=== PATIENT | female | born 1960 | race Caucasian/White ===

== ENCOUNTER 2020-11-15 07:26 | Outpatient (REF) | payer BC, SELFPAY ==
[2020-11-15 08:18] LABS: Glucose Fasting 156 mg/dL (60-99)
[2020-11-15 08:21] LABS: Estimated Average Glucose 171 mg/dL; Hemoglobin A1c % 7.6 %
[2020-11-15 08:48] LABS: Vitamin D 25-OH Total 31.1 ng/mL (>30)
== END 2020-11-15 07:27 | disposition home or self-care (01) ==
LOC: HO.LAB 07:26
PROVIDERS: PCP Internal Medicine; Visit Provider Internal Medicine
DX: E11.9 Type 2 diabetes mellitus without complications (principal); E55.9 Vitamin D deficiency, unspecified
CPT/HCPCS: 36415; 82306; 82947; 83036

== ENCOUNTER 2021-05-22 10:13 | Outpatient (REF) | payer BC, SELFPAY ==
[2021-05-22 10:17] LABS: MANUAL DIFF FLAG NO
[2021-05-22 10:50] LABS: Basophils Absolute Auto 0.1 X10*3/uL (0.0-0.2); Basophils Percent Auto 0.5 % (0-2); Eosinophils Absolute Auto 0.2 X10*3/uL (0.0-0.4); Eosinophils Percent Auto 1.7 % (0-4); Hematocrit 39.4 % (37-47); Hemoglobin 13.3 g/dl (12.0-16.0); Imm Gran Abs Auto 0.04 X10*3/uL (0.00-0.03); Imm Gran Pct Auto 0.4 % (0.0-0.4); Lymphocytes Absolute Auto 4.1 X10*3/uL (1.2-4.9); Lymphocytes Percent Auto 41.9 % (20-40); Mean Corpuscular HGB Conc 33.8 g/dl (31.0-35.0); Mean Corpuscular Hemoglobin 30.2 pg (27.0-33.0); Mean Corpuscular Volume 89.5 fL (80-98); Mean Platelet Volume 10.6 fL (9.4-12.3); Monocytes Absolute Auto 0.6 X10*3/uL (0.1-1.2); Monocytes Percent Auto 5.8 % (2-11); Neutrophils Absolute Auto 4.9 X10*3/uL (2.0-8.3); Neutrophils Percent Auto 49.7 % (45-73); Platelet Count 273 X10*3/uL (160-400); White Blood Count 9.8 X10*3/uL (4.8-10.8)
[2021-05-22 11:07] LABS: Appearance Urine HAZY; Color Urine YELLOW; Glucose Urine UA NEG (NEG); Leukocyte Esterase Urine 2+ (NEG); Nitrite Urine NEG (NEG); Specific Gravity - Urine 1.025 (1.005-1.025); Urine Blood 2+ (NEG); Urine Ketones NEG (NEG); Urine Protein NEG (NEG-TRACE)
[2021-05-22 11:20] LABS: Bacteria Urine 3+ /LPF; Squamous Epithelial Cell Urine 2+ /LPF; WBC Urine 30-49 /HPF (0-4)
[2021-05-22 11:21] LABS: Alanine Aminotransferase 26 U/L (0-31); Albumin Level 4.3 g/dL (3.5-5.0); Alkaline Phosphatase 89 U/L (39-117); Anion Gap 14 (12-20); Aspartate Amino Transferase 25 U/L (5-31); Blood Urea Nitrogen 12 mg/dL (9-16); Calcium 9.3 mg/dL (8.4-10.2); Carbon Dioxide 25 mmol/L (22-29); Chloride 105 mmol/L (96-108); Cholesterol 179 mg/dL; Estimated Glomerular Filt Rate > 60; Glucose Fasting 175 mg/dL (60-99); HDL Cholesterol 46 mg/dL; LDL Cholesterol Calculated 102 mg/dl; Potassium 4.1 mmol/L (3.3-5.1); Sodium 140 mmol/L (135-145); Total Protein 7.3 g/dL (6.5-8.0); Triglycerides 156 mg/dL
[2021-05-22 11:44] LABS: Reflex LDLD? No
[2021-05-22 12:50] LABS: Creatinine Urine 145.48 mg/dL; Microalbum/Creatinine Ratio Ur 17.1 ug/mg cr
[2021-05-23 07:32] LABS: Estimated Average Glucose 212 mg/dL
== END 2021-05-22 10:14 | disposition home or self-care (01) ==
LOC: HO.LNP 10:13
PROVIDERS: Visit Provider Internal Medicine
DX: Z00.00 Encounter for general adult medical examination without abnormal findings (principal); E78.00 Pure hypercholesterolemia, unspecified; D12.6 Benign neoplasm of colon, unspecified; E55.9 Vitamin D deficiency, unspecified; E11.9 Type 2 diabetes mellitus without complications; I10 Essential (primary) hypertension
CPT/HCPCS: 80053; 80061; 81001; 81003; 82043; 82306; 83036; 85025

== ENCOUNTER 2021-08-22 07:02 | Outpatient (REF) | payer BC, SELFPAY ==
[2021-08-22 08:10] LABS: Estimated Average Glucose 131 mg/dL; Hemoglobin A1c % 6.2 %
[2021-08-22 08:13] LABS: Glucose Fasting 123 mg/dL (60-99)
== END 2021-08-22 07:03 | disposition home or self-care (01) ==
LOC: HO.LAB 07:02
PROVIDERS: PCP Internal Medicine; Visit Provider Internal Medicine
DX: E11.9 Type 2 diabetes mellitus without complications (principal)
CPT/HCPCS: 36415; 82947; 83036

== ENCOUNTER → 2021-11-04 12:25 | Outpatient (BNVA) | payer OTHER, SELFPAY | PROVIDERS: PCP Internal Medicine; Visit Provider Physician Assistant | DX: M77.11 Lateral epicondylitis, right elbow (principal); M77.12 Lateral epicondylitis, left elbow | CPT/HCPCS: 99203 ==

== ENCOUNTER → 2021-11-10 10:45 | Outpatient (BNVA) | payer OTHER, SELFPAY | PROVIDERS: PCP Internal Medicine; Visit Provider Physician Assistant Medical | DX: M54.6 Pain in thoracic spine (principal); M75.41 Impingement syndrome of right shoulder; M77.10 Lateral epicondylitis, unspecified elbow; M77.00 Medial epicondylitis, unspecified elbow | CPT/HCPCS: 99213 ==

== ENCOUNTER 2021-11-16 10:21 | Outpatient (REF) | payer BC, SELFPAY ==
[2021-11-16 13:01] LABS: Alanine Aminotransferase 20 U/L (0-31); Albumin Level 4.7 g/dL (3.5-5.0); Alkaline Phosphatase 61 U/L (39-117); Aspartate Amino Transferase 14 U/L (5-31); Bilirubin Direct 0.3 mg/dL (0.0-0.5); Bilirubin Total 0.7 mg/dL (0.0-1.0); Cholesterol 171 mg/dL; Glucose Fasting 123 mg/dL (60-99); HDL Cholesterol 52 mg/dL; LDL Cholesterol Calculated 91 mg/dl; Total Protein 8.1 g/dL (6.5-8.0); Triglycerides 142 mg/dL
[2021-11-16 13:45] LABS: Estimated Average Glucose 120 mg/dL; Hemoglobin A1c % 5.8 %
== END 2021-11-16 10:22 | disposition home or self-care (01) ==
LOC: HO.LAB 10:21
PROVIDERS: PCP Internal Medicine; Visit Provider Internal Medicine
DX: E11.9 Type 2 diabetes mellitus without complications (principal); E78.00 Pure hypercholesterolemia, unspecified; I10 Essential (primary) hypertension
CPT/HCPCS: 36415; 80061; 80076; 82947; 83036

== ENCOUNTER → 2021-11-18 12:54 | Outpatient (BNVA) | payer OTHER, SELFPAY | PROVIDERS: PCP Internal Medicine; Visit Provider Physician Assistant Medical | DX: H53.19 Other subjective visual disturbances (principal); S16.1XXD Strain of muscle, fascia and tendon at neck level, subsequent encounter; X50.3XXD Overexertion from repetitive movements, subsequent encounter | CPT/HCPCS: 99213 ==

== ENCOUNTER → 2021-12-02 12:53 | Outpatient (BNVA) | payer OTHER, SELFPAY | PROVIDERS: PCP Internal Medicine; Visit Provider Physician Assistant Medical | DX: M54.89 Other dorsalgia (principal); M77.01 Medial epicondylitis, right elbow; M65.30 Trigger finger, unspecified finger | CPT/HCPCS: 99213 ==

== ENCOUNTER → 2021-12-04 09:39 | Outpatient (BNVA) | payer OTHER, SELFPAY | PROVIDERS: Visit Provider Physician Assistant | DX: M65.331 Trigger finger, right middle finger (principal); M65.341 Trigger finger, right ring finger; G56.21 Lesion of ulnar nerve, right upper limb; G56.01 Carpal tunnel syndrome, right upper limb | CPT/HCPCS: 99202 ==

== ENCOUNTER 2021-12-16 08:30 | Outpatient (RCR) | payer OTHER, BC, SELFPAY ==
--- NOTE | 2021-11-16 15:39 | MHC.OT.OEV ---
[address] [phone] F: [phone] Occupational Therapy Evaluation Diagnosis: Bilateral medial epicondylitis /nerve impingment Date of Onset: 10/29/21 Date of Surgery: Attending Provider: Camelia Copeland PA-C Prescribed Treatment: Eval and treat, custom splinting MD Follow Up Appointment: History of Current Condition: Pt reports bilateral hand pain , thobbing 4 hours after shoveling all day Two days later pain aggravated using an auto scrubber Seen in the [facility], was fitted with a pre doreen wrist support, taken out of work and RX for Naproxen 500 mg 2x/dayand cyclobenzaprine 10 mg , 3x/day follow up appt new rx Melnylprednis, solone x 6 day , pt on 2nd to last day Reports improving pain, continued numbness R>L Significant Medical History: HTN, DM 11 Precautions/Contraindications: Pain Patient Goals: Take numbness away, no pain Hand Dominance: Right Observations: QuickDASH Score: 63 Prior Level of Function and Occupation Self Care, Employment, Leisure: Indep in all areas 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 Bilateral finger tips and R thumb/thenar ms. Left hypothenar ms Aggravating Factors: Constant inc with activities Alleviating Factors: Skin and Soft Tissue Assessment Skin and Soft Tissue: Comments: No abnormalities noted Nerve assessment Ulnar Nerve: WFL Median Nerve: WNL Radial Nerve: WNL Comments: Sensory Assessment Temperature: WFL Light Touch: Proprioception: Vibration: Comments: Left hand Normal light touch D1-5 Right D1, 4 and 5 normal. D2 and 3 diminished light touch Edema Assessment Upper Extremity: WNL Lower Extremity: Comments: Dexterity Assessment Dexterity: WFL Comments: Special Tests Comments: Neg Elbow flexion test Neg Tinels at carpal wrist and proxmal forearm ( tender) Neg resisted pronation Pos Phalens on right AROM(PROM) Strength Cervical Cervical Flexion: Cervical Extension: Cervical Lateral Flexion: Cervical Rotation: Comments: Shoulder Flexion: Extension: Abduction: Internal Rotation: External Rotation: Comments: WNL Flexion: Extension: Abduction: Internal Rotation: External Rotation: Comments: Elbow Flexion: Extension: Pronation: Supination: Comments: WNL Flexion: Extension: Pronation: Supination: Comments: Wrist Flexion: R 70 deg L 70 deg Extension: R 60 deg L 65 deg Ulnar Deviation: Radial Deviation: Comments: Flexion: Extension: Ulnar Deviation: Radial Deviation: Comments: WNL Thumb Thumb CMC Flexion: Thumb MCP Flexion: Thumb IP Flexion: Radial Abduction: Palmar Abduction: Gary (Kapandji 0-10): Comments: WNL Digits Index MCP: PIP: DIP: Long MCP: PIP: DIP: Ring MCP: PIP: DIP: Small MCP: PIP: DIP: Comments: WNL Gross Grasp: R 40 lb L 45 lb Lateral Pinch: Two-Point Pinch: Three-Jaw Dank: Comments: Right pain at digits 3,4 and 5 Patient Education Primary Language: Kyr[place]z Brand Executive Required: No Current Knowledge: Minimal, needs reinforcement Teaching Method: Demonstration Handouts Verbal Education Needs Identified on Evaluation: Disease Information Exercise How did patient/family demonstrate learning? Patient demonstrates Patient verbalizes Barriers to Learning: None Readiness for Learning: Accepting Who was educated? Patient Comments: Plan of Care Assessment: Pt is a 61 yo female with complaint of continued right hand pain and middle and ring finger numbness since extensive shoveling 2 wks ago. She reports that her pain and swelling has improved quite a bit and her primary complaint is right hand thumb pain and middle and ring finger pain and constant numbness. Pt has a ho middle and ring trigger fingers previously improved with conservative treatment. Pt will benefit OT to promote healing and regain right UE function with daily actiivties STG Duration: 2 wks Short Term Goals: Demo indep with HEP Dec c/o right hand paresthesia to occassional Tolerate eccentric wrist ther ex Dec c/o pain to <4 LTG Duration: 3 wks Steam Bone Press Tender Goals: Indep HEP and ex progression Tolerated daily activities with modifications as needed Painfree with ADL, driving, and mod heavy work tasks Dec frequency of right hand numbness to occassional Frequency and Duration: The patient will be seen 3x wk x 3 wks Treatment Plan: Therapeutic Exercise Therapeutic Activity Home Exercise Program Splinting Patient Education Edema Control ADL Training Ultrasound Paraffin Fluidotherapy MHP Soft Tissue Mobilization Electronically Signed By: Velia Prieto OT CHT CLT Reviewed/agree with student documentation: N/A Therapist: Please sign and return to therapist, Thank you for your referral.
--- NOTE | 2021-12-16 09:48 | MHC.OT.OR ---
Occupational Therapy Outpt Reeval Start: 11/16/21 10:34 Freq: Status: Active Protocol: Activity Type Activity Date Activity User E-Sign Co-Sign Detail Recorded Client Recorded Date Recorded By Document 12/16/21 09:46 NIRMALA [id number] 12/16/21 09:48 NIRMALA 12/16/21 09:46 Outpatient Occupational Therapy Re- evaluation [Treatment History] -Attending Provider Camelia Copeland PA-C -Diagnosis Bilateral medial epicondylitis / nerve impingment -Evaluation Date 11/16/21 -Treatments to Date 8 [Subjective] -Subjective Its worse today. 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 Need to lift a 10 garbage bag.. washing a lot of counter tops ..sinks Reports con't numbness and pain at digit tips , middle finger 3/10. 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 Complaint of tenderness worsening with use and ther ex . Occassional cupping of elbow with report of tender not pain with simiulated work and resistance ex Inc tolerance with simulated work noted. Pt did not alternate hands and worked at a good pace. 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 [Plan of Care] -Short Term Goals Demo indep with HEP MET Dec c/o right hand paresthesia to occassional Tolerate eccentric wrist ther ex MET Dec c/o pain to <4 MET -Penitentiary Goals Indep HEP and ex progression Tolerated daily activities with modifications as needed MET Painfree with ADL, driving, and mod heavy work tasks Dec frequency of right hand numbness to occassional -Frequency and Duration of Visits 2x wk x 3 wks -Treatment Plan Therapeutic Exercise, Therapeutic Activity,Home Exercise Program,Patient Education,ADL Training -Treatment Plan Comments Simulated work tasks -Electronically signed by: Velia Prieto OT CHT CLT -Reviewed/agreed with student N/A documentation
--- NOTE | 2022-01-20 13:53 | MHC.OT.DC ---
[address] [phone] F: [phone] Occupational Therapy Discharge Note Provider: Camelia Copeland PA-C Diagnosis: Bilateral medial epicondylitis /nerve impingment Date of Surgery: Date of Evaluation: 11/16/21 Date of Discharge: 01/20/22 Treatments to Date: 8 Cancellations to Date: No Shows to Date: Discharge Status: Improved Function Independent with HEP Discharge Summary: Pt not scheduled since MD follow up last month Please see OT re eval for details Electronically Signed By: Velia Prieto OT CHT CLT Reviewed/agree with student documentation: N/A Therapist: Please Sign and return to therapist, thank you for your referral.
--- NOTE | 2022-02-12 13:37 | MHC.OT.DC ---
[address] [phone] F: [phone] Occupational Therapy Discharge Note Provider: Camelia Copeland PA-C Diagnosis: Bilateral medial epicondylitis /nerve impingment Date of Surgery: Date of Evaluation: 11/16/21 Date of Discharge: 01/20/22 Treatments to Date: 8 Cancellations to Date: No Shows to Date: Discharge Status: Improved Function Independent with HEP Discharge Summary: Pt not scheduled since MD follow up last month Please see OT re eval for details Electronically Signed By: Velia Prieto OT CHT CLT Reviewed/agree with student documentation: N/A Therapist: Please Sign and return to therapist, thank you for your referral.
== END 2022-02-12 13:38 | disposition home or self-care (01) ==
LOC: HO.OT 08:30
PROVIDERS: Visit Provider Physician Assistant Medical
DX: M77.02 Medial epicondylitis, left elbow (principal); M77.01 Medial epicondylitis, right elbow
CPT/HCPCS: 97035; 97110; 97165; 97530; 97760

== ENCOUNTER → 2021-12-17 13:20 | Outpatient (BNVA) | payer OTHER, SELFPAY | PROVIDERS: Visit Provider Physician Assistant | DX: M79.631 Pain in right forearm (principal); M65.331 Trigger finger, right middle finger; M54.2 Cervicalgia | CPT/HCPCS: 99214 ==

== ENCOUNTER → 2022-01-05 10:38 | Outpatient (BNVA) | payer OTHER, SELFPAY | PROVIDERS: Visit Provider Orthopaedic Surgery | DX: M65.341 Trigger finger, right ring finger (principal); M65.331 Trigger finger, right middle finger | CPT/HCPCS: 99212 ==

== ENCOUNTER 2022-01-07 11:10 | Day surgery (SDC) | payer OTHER, SELFPAY ==
[2022-01-07 11:42] VITALS: BP 179/78; PULSE 69; RESP 18; TEMP 36.7; O2SAT 99
[2022-01-07 11:49] VITALS: BMI 26.6
[2022-01-07 12:07] LABS: Glucose, Whole Blood 105 mg/dL (60-115)
--- NOTE | 2022-01-07 13:16 | P.OP_ITS ---
Operative Note Operative Note Date of Service: 01/07/22 Narrative: Operative Note Preop diagnosis: 1. right ring finger Trigger finger 2. Right middle finger trigger finger Postop diagnosis: 1. right ring finger Trigger finger 2.right middle finger trigger finger Procedure: 1. right ring finger A1 lino release 2. Right middle finger A1 lino release Surgeon: Georgina Jaimes MD Anesthesia: local block using 1% lidocaine with epinephrine Findings: No locking or catching after A1 lino release EBL: Less than 5 mL Tourniquet time: None Specimens: None Complications: None Disposition: Brought to recovery room in stable condition Plan: Follow-up for 10-14 days for wound check and suture removal Indications: The patient is [age] years old, with a right ring finger and right middle finger trigger fingers that have been unresponsive to nonoperative management. The risks and benefits of operative treatment including but not limited to risk of damage to blood vessels, nerves, tendons, infection, persistent pain, persistent symptoms, recurrence or possible need for additional surgery were discussed with the patient and the patient wishes to proceed with surgery. Procedure: Once consent was obtained a local block was performed in the preop area using a combination of 1% lidocaine with epinephrine. The patient was then brought back to the operating suite and placed on the operative table in supine position. A tourniquet was applied to the proximal aspect of the right upper extremity and the limb was prepped and draped in a standard surgical fashion. Once assured that we had a good block, a 1.5 cm oblique incision was made centered over the A1 lino of the right ring finger . The incision was made through the skin to the subcutaneous tissues using a #15 blade. Careful dissection was made down to the level of the A1 lino using tenotomy scissors, with care being taken to protect the nearby neurovascular structures. A longitudinal incision was made in the A1 lino 1st using a #15 blade, then using tenotomy scissors under direct visualization. The A1 lino was noted to be thickened. Following our A1 lino release, we no longer saw any locking or catching of the digit with flexion and extension. Once assured that we had a good block, a 1.5 cm oblique incision was made centered over the A1 lino of the right middle finger . The incision was made through the skin to the subcutaneous tissues using a #15 blade. Careful dissection was made down to the level of the A1 lino using tenotomy scissors, with care being taken to protect the nearby neurovascular structures. A longit udinal incision was made in the A1 lino 1st using a #15 blade, then using tenotomy scissors under direct visualization. The A1 lino was noted to be thickened. Following our A1 lino release, we no longer saw any locking or catching of the digit with flexion and extension. Once satisfied with our A1 lino release the wound was copiously irrigated with normal saline and hemostasis was obtained with a brief period of local pressure. The skin edges were reapproximated with some 5.0 nylon suture material and a sterile dressing was applied. The patient appears to have tolerated the procedure well and with no complications. All digits were well vascularized at the conclusion of the case.
--- NOTE | 2022-01-07 13:16 | MHC.SHP ---
Pre-Procedural Eval Section A Date of Service: 01/07/22 The patient is an INPATIENT: No Changes since office visit: No Cold of Flu in the past 2 weeks, No New Medical Problems, No Changes in Medication and No Patient answered all questions The History & Physical has been completed within 30 days and I have reviewed it.: Yes Section B Chief Complaint: middle and ring finger trigger release Allergies: Allergies Allergy/AdvReac Type Severity Reaction Status Date / Time No Known Allergies Allergy Verified 01/05/22 11:09 Plan I have reviewed the history and physical and performed a pertinent physical examination on my patient. No changes have occurred unless specified.
[2022-01-07 14:40] VITALS: BP 142/69; PULSE 69; RESP 18; TEMP 36.6; O2SAT 96
== END 2022-01-07 15:00 ==
LOC: HO.SSS 11:12
PROVIDERS: PCP Internal Medicine; Visit Provider Orthopaedic Surgery
PROC: (CPT 26055; principal; 2022-01-07 14:10)
DX: M65.331 Trigger finger, right middle finger (principal); M65.341 Trigger finger, right ring finger; R20.0 Anesthesia of skin; R73.03 Prediabetes; Z79.84 Long term (current) use of oral hypoglycemic drugs; Z79.1 Long term (current) use of non-steroidal anti-inflammatories (NSAID)
CPT/HCPCS: 26055 ×2; 82947; J0171

== ENCOUNTER → 2022-01-20 10:09 | Outpatient (BNVA) | payer OTHER, SELFPAY | PROVIDERS: PCP Internal Medicine; Visit Provider Orthopaedic Surgery | DX: M65.341 Trigger finger, right ring finger (principal); M65.331 Trigger finger, right middle finger | CPT/HCPCS: 99212 ==

== ENCOUNTER → 2022-04-07 13:09 | Outpatient (BNVA) | payer OTHER, SELFPAY | PROVIDERS: PCP Internal Medicine; Visit Provider Orthopaedic Surgery | DX: M65.331 Trigger finger, right middle finger (principal); M65.341 Trigger finger, right ring finger; R20.0 Anesthesia of skin | CPT/HCPCS: 99212 ==

== ENCOUNTER 2022-05-15 07:07 | Outpatient (REF) | payer BC, SELFPAY ==
[2022-05-15 07:25] LABS: MANUAL DIFF FLAG NO
[2022-05-15 08:14] LABS: Basophils Absolute Auto 0.1 X10*3/uL (0.0-0.2); Basophils Percent Auto 0.6 % (0-2); Eosinophils Absolute Auto 0.1 X10*3/uL (0.0-0.4); Eosinophils Percent Auto 1.1 % (0-4); Hematocrit 38.3 % (37.0-47.0); Imm Gran Abs Auto 0.03 X10*3/uL (0.00-0.03); Imm Gran Pct Auto 0.4 % (0.0-0.4); Lymphocytes Percent Auto 35.7 % (20-40); Mean Corpuscular HGB Conc 33.9 g/dl (31.0-35.0); Mean Corpuscular Hemoglobin 30.4 pg (27.0-33.0); Mean Corpuscular Volume 89.5 fL (80.0-98.0); Mean Platelet Volume 10.2 fL (9.4-12.3); Monocytes Absolute Auto 0.5 X10*3/uL (0.1-1.2); Neutrophils Absolute Auto 4.8 x10*3/uL (2.0-8.3); Neutrophils Percent Auto 56.2 % (45-73); Platelet Count 270 X10*3/uL (160-400); Red Blood Count 4.28 X10*6/uL (4.20-5.50); Red Cell Distribution Width 12.6 % (11.0-16.0); White Blood Count 8.5 X10*3/uL (4.8-10.8)
[2022-05-15 08:41] LABS: Alanine Aminotransferase 12 U/L (0-31); Albumin Level 4.1 g/dL (3.5-5.0); Alkaline Phosphatase 63 U/L (39-117); Anion Gap 16 (12-20); Aspartate Amino Transferase 12 U/L (5-31); Bilirubin Total 0.9 mg/dL (0.0-1.0); Blood Urea Nitrogen 15 mg/dL (9-16); Carbon Dioxide 23 mmol/L (22-29); Chloride 106 mmol/L (96-108); Cholesterol 187 mg/dL; Estimated Glomerular Filt Rate > 60; Glucose Fasting 106 mg/dL (60-99); HDL Cholesterol 47 mg/dL; LDL Cholesterol Calculated 110 mg/dl; Sodium 141 mmol/L (135-145); Total Protein 7.1 g/dL (6.5-8.0); Triglycerides 153 mg/dL
[2022-05-15 08:46] LABS: Appearance Urine Clear; Color Urine Yellow; Glucose Urine UA Negative (Negative); Leukocyte Esterase Urine Moderate (2+) (Negative); Nitrite Urine Negative (Negative); Specific Gravity - Urine 1.015 (1.005-1.025); Urine Blood Trace (Negative); Urine Ketones Negative (Negative); Urine Protein Negative (Neg-Trace)
[2022-05-15 08:52] LABS: Bacteria Urine None Seen (None Seen); Hyaline Casts Urine 0-2 /LPF (0-2); RBC Urine 0-2 /HPF (0-2); WBC Urine >50 /HPF (0-5)
[2022-05-15 09:04] LABS: Vitamin D 25-OH Total 33.3 ng/mL (>30)
[2022-05-15 09:18] LABS: Estimated Average Glucose 108 mg/dL; Hemoglobin A1c % 5.4 %
[2022-05-15 09:20] LABS: Creatinine Urine 67.97 mg/dL; Microalbum/Creatinine Ratio Ur 16.1 ug/mg cr
== END 2022-05-15 07:08 | disposition home or self-care (01) ==
LOC: HO.LAB 07:07
PROVIDERS: PCP Internal Medicine; Visit Provider Internal Medicine
DX: Z00.00 Encounter for general adult medical examination without abnormal findings (principal); E78.00 Pure hypercholesterolemia, unspecified; E55.9 Vitamin D deficiency, unspecified; E11.9 Type 2 diabetes mellitus without complications; I10 Essential (primary) hypertension
CPT/HCPCS: 36415; 80053; 80061; 81001; 82043; 82306; 83036; 85025

== ENCOUNTER → 2022-07-13 13:29 | Outpatient (BNVA) | payer BC, SELFPAY | PROVIDERS: PCP Internal Medicine; Visit Provider Orthopaedic Surgery | DX: R20.0 Anesthesia of skin (principal); R22.31 Localized swelling, mass and lump, right upper limb | CPT/HCPCS: 99212 ==

== ENCOUNTER 2022-09-27 08:28 | Day surgery (SDC) | payer OTHER, SELFPAY ==
[2022-09-27 09:29] VITALS: BP 168/62; PULSE 62; RESP 16; TEMP 36.6; O2SAT 98
[2022-09-27 09:33] VITALS: BMI 27.0
--- NOTE | 2022-09-27 10:45 | MHC.SHP ---
Pre-Procedural Eval Section A Date of Service: 09/27/22 The patient is an INPATIENT: No Changes since office visit: No Cold of Flu in the past 2 weeks, No New Medical Problems, No Changes in Medication and No Patient answered all questions The History & Physical has been completed within 30 days and I have reviewed it.: Yes Section B Chief Complaint: Localized swelling, mass and lump, right upper mercer Allergies: Allergies Allergy/AdvReac Type Severity Reaction Status Date / Time No Known Allergies Allergy Verified 07/13/22 13:57 Plan I have reviewed the history and physical and performed a pertinent physical examination on my patient. No changes have occurred unless specified. Time Spent With Patient Time: Total time managing care of this patient today ____ minutes.
--- NOTE | 2022-09-27 10:46 | W.PM.OPN ---
Operative Note Operative Note Date of Service: 09/27/22 Narrative: Operative Note Preop diagnosis: 1. right middle finger soft tissue mass Postop diagnosis: same Procedure: 1. right middle finger soft tissue mass excisional biopsy Surgeon: Georgina Jaimes MD Anesthesia: digital block using 1% lidocaine with epinephrine Findings: 2 mm diameter ruiz nodule EBL: Less than 5 mL Tourniquet time: None Specimens: right middle finger mass for histopathology Complications: None Disposition: Brought to recovery room in stable condition Plan: Follow-up for 7-10 days for wound check and suture removal and to check pathology Indications: The patient is 62 years old, with painful right middle finger soft tissue mass . The risks and benefits of operative treatment including but not limited to risk of damage to blood vessels, nerves, tendons, infection, persistent pain, persistent symptoms, recurrence or possible need for additional surgery were discussed with the patient and the patient wishes to proceed with surgery. Procedure: Once consent was obtained a digital block was performed in the preop area using a combination of 1% lidocaine with epinephrine. The patient was then brought back to the operating suite and placed on the operative table in supine position. The right upper extremity was prepped and draped in a standard surgical fashion. a finger tourniquet was applied to the base of the middle finger for fewer than 30 minutes. Once assured that we had a good block, I made a 1 cm longitudinal incision directly over the soft tissue mass in the pad of the right middle finger. The incision was made through the skin to the subcutaneous tissues using a 15. Blade. And then dissected into the pad of the right middle finger using tenotomy and iris scissors, identifying the soft tissue mass. the mass was about 2 mm in diameter ruiz, and fairly easily dissected free from the pad of the finger. The mass was removed from the finger placed on the back table to be sent for histopathology. The wound was copiously irrigated with normal saline and hemostasis was obtained with a brief period of local pressure. The skin edges were reapproximated with some 5.0 nylon suture material and a sterile dressing was applied. The patient appears to have tolerated the procedure well and with no complications. All digits were well vascularized at the conclusion of the case.
== END 2022-09-27 12:04 | disposition home or self-care (01) ==
PROVIDERS: PCP Internal Medicine; Visit Provider Orthopaedic Surgery
PROC: (CPT 26115; principal; 2022-09-27 10:20)
DX: D18.01 Hemangioma of skin and subcutaneous tissue (principal); R20.0 Anesthesia of skin; E11.9 Type 2 diabetes mellitus without complications
CPT/HCPCS: 26115; 88304; 88305; J0171

== ENCOUNTER → 2022-10-12 08:37 | Outpatient (BNVA) | payer OTHER, SELFPAY | PROVIDERS: PCP Internal Medicine; Visit Provider Orthopaedic Surgery | DX: Z13.89 Encounter for screening for other disorder (principal) ==

== ENCOUNTER 2022-11-20 07:27 | Outpatient (REF) | payer BC, SELFPAY ==
[2022-11-20 09:16] LABS: Estimated Average Glucose 111 mg/dL; Hemoglobin A1c % 5.5 %
[2022-11-20 10:40] LABS: Alanine Aminotransferase 11 U/L (0-31); Albumin Level 4.2 g/dL (3.5-5.0); Alkaline Phosphatase 76 U/L (39-117); Aspartate Amino Transferase 14 U/L (5-31); Bilirubin Direct 0.2 mg/dL (0.0-0.5); Bilirubin Total 1.1 mg/dL (0.0-1.0); Cholesterol 292 mg/dL; Glucose Fasting 101 mg/dL (60-99); HDL Cholesterol 53 mg/dL; LDL Cholesterol Calculated 218 mg/dl; Total Protein 6.9 g/dL (6.5-8.0); Triglycerides 105 mg/dL
== END 2022-11-20 07:28 | disposition home or self-care (01) ==
LOC: HO.LAB 07:27
PROVIDERS: PCP Internal Medicine; Visit Provider Internal Medicine
DX: E11.9 Type 2 diabetes mellitus without complications (principal); E78.00 Pure hypercholesterolemia, unspecified
CPT/HCPCS: 36415; 80061; 80076; 82947; 83036

== ENCOUNTER 2023-01-03 14:29 | Emergency (ER) | payer BC, SELFPAY ==
--- NOTE | ~2023-01-03 | XR_ITS ---
EXAMINATION: Bilateral wrist. CLINICAL INDICATION: Status post fall. COMPARISON: None. TECHNIQUE: 4 views each wrist. FINDINGS: Left wrist: There is no visible acute fracture, dislocation or subluxation. There is normal radiocarpal, intercarpal and carpometacarpal articulation. No soft tissue swelling. Right wrist: There is no visible acute fracture, dislocation or subluxation seen. There is no radiocarpal, intercarpal and carpometacarpal articulation. No soft tissue swelling. XR/XR wrist LT min 3V IMPRESSION: Unremarkable bilateral wrist exam.
--- NOTE | ~2023-01-03 | XR_ITS ---
EXAMINATION: Bilateral wrist. CLINICAL INDICATION: Status post fall. COMPARISON: None. TECHNIQUE: 4 views each wrist. FINDINGS: Left wrist: There is no visible acute fracture, dislocation or subluxation. There is normal radiocarpal, intercarpal and carpometacarpal articulation. No soft tissue swelling. Right wrist: There is no visible acute fracture, dislocation or subluxation seen. There is no radiocarpal, intercarpal and carpometacarpal articulation. No soft tissue swelling. XR/XR wrist RT min 3V IMPRESSION: Unremarkable bilateral wrist exam.
--- NOTE | ~2023-01-03 | CT_ITS ---
EXAMINATION: CT brain, CT cervical spine and CT facial bones. CLINICAL INDICATION: Status post fall with head strike. COMPARISON: None. TECHNIQUE: 5 mm thin axial and reformatted 2 mm thin sagittal and coronal images of brain were obtained. Subsequently axial 3 mm thin and reformatted 2 mm thin sagittal and coronal images of cervical spine were obtained. Lastly axial 3 mm thin and reformatted 1.5 mm thin sagittal and coronal images of facial bones were obtained. DLP [id number]. This CT examination was performed using dose optimization technique as appropriate, variously including the following: Automated exposure control Adjustment of MA and/or KV according to patient size(this includes techniques or standardized protocols for targeted exams where dose is matched to indication/reason for exam; extremities or head. Use of iterative reconstruction techniques. FINDINGS: Brain: There is no acute intra-axial, extra-axial bleed, masses or midline shift. The charles to white matter difference is maintained normal. There is no acute infarction evolution. The lateral ventricles are symmetrical in size and configuration without enlargement. Bone windows reveal no calvarial abnormality. There is no scalp soft tissue abnormality. Bilateral paranasal sinuses are well-aerated with mild mucoperiosteal thickening left maxillary sinus. CERVICAL SPINE: There is mild straightening of cervical lordosis. The vertebral heights and alignment is normal. There is loss of C5-C6 and C6-C7 disc heights. Rest the disc heights are normal. The craniovertebral junction and the C1-C2 alignment is normal. There is mild ventral spondylosis at the C1-C2 disc level. No visible acute fracture, dislocation or subluxation seen. Prevertebral and paravertebral soft tissues are normal. The airways widely patent. FACIAL BONES: There is normal aeration of bilateral paranasal sinuses and mastoid air cells with a small mucoperiosteal thickening left maxillary sinuses. The bony nick of maxillofacial bones are normal. No visible fracture. The nasal septum is mildly deviated to the right is normal symmetry of the turbinates. The nasal cavity and nasopharyngeal airway is widely patent. Bilateral TM joints are symmetric and normal. No periapical cyst right lower loss molar tooth. There is no acute fracture involving the mandible. The oral cavity is limited in evaluation secondary to dental amalgam artifact CT/CT cervical spine wo IV con IMPRESSION: No acute intracranial process seen. Mild mucoperiosteal thickening left maxillary sinus. No maxillofacial, nasal or mandibular fracture. There is a periapical lucency along the right lower molar tooth. The oral cavity is limited in evaluation secondary to dental amalgam artifact.
[2023-01-03 15:10] VITALS: BP 186/92; PULSE 81; RESP 18; TEMP 36.3; O2SAT 98; BMI 28.1
--- NOTE | 2023-01-03 15:10 | ED_ITS ---
HPI - Fall General Chief Complaint: Fall <JOHNATHON Wasserman - Last Filed: 01/03/23 15:13> Stated Complaint: Fall on concrete/Facial inj/L knee pain <JOHNATHON Wasserman - Last Filed: 01/03/23 15:13> Time Seen by Provider: 01/03/23 18:52 <JOHNATHON Wasserman - Last Filed: 01/03/23 15:13> Source: patient <Jaki Aguilar MD - Last Filed: 01/03/23 19:09> Mode of arrival: ambulatory <Jaki Aguilar MD - Last Filed: 01/03/23 19:09> Limitations: no limitations <Jaki Aguilar MD - Last Filed: 01/03/23 19:09> History of Present Illness HPI Narrative: Patient comes emergency room complaining of a fall. Patient complaining of pain around her nose, knees and wrists. Patient states that she was going for a walk with her friend, patient tripped and face planted patient did not lose consciousness, patient is not on blood thinners. <Jaki Aguilar MD - Last Filed: 01/03/23 19:09> Related Data Home Medications: Home Medications Medication Instructions Recorded Confirmed atorvastatin 20 mg tablet 20 mg PO DAILY 12/04/21 cyclobenzaprine 10 mg tablet 10 mg PO TID PRN 12/04/21 metformin 500 mg tablet 500 mg PO BID 12/04/21 naproxen 500 mg tablet 500 mg PO BID 12/04/21 Previous Rx's Medication Instructions Recorded ibuprofen 600 mg tablet 600 mg PO Q6-8H PRN pain #20 tabs 01/07/22 olanzapine 2.5 mg tablet (Zyprexa) 2.5 mg PO BEDTIME #2 tabs 01/03/23 tramadol 50 mg tablet 50 mg PO BID PRN pain #6 tabs 01/03/23 <JOHNATHON Wasserman - Last Filed: 01/03/23 15:13> Allergies/Adverse Reactions: Allergies Allergy/AdvReac Type Severity Reaction Status Date / Time No Known Allergies Allergy Verified 01/03/23 15:10 <JOHNATHON Wasserman - Last Filed: 01/03/23 15:13> Review of Systems Review of Systems: Constitutional : No Weight loss, No Fever, No Chills, No Night Sweats, No Fatigue, No Malaise ENT/Mouth : Complaining of ecchymosis around the nose, No Hearing loss, No Ear Pain, No Nasal Congestion, No Sinus Pain, No Hoarseness, No sore throat, No Rhinorrhea, No Swallowing Difficulty Eyes: No Eye Pain, No Swelling, No Redness, No Foreign Body, No Discharge, No Vision Changes Cardiovascular : No Chest Pain, No SOB, No Dyspnea on Exertion, No Orthopnea, No Edema, No Palpitations Respiratory : No Cough, No Sputum, No Wheezing, No Smoke Exposure, No Dyspnea Gastrointestinal : No Nausea, No Vomiting, No Diarrhea, No Constipation, No abdominal Pain, No Hematochezia, No Melena Genitourinary : no irregular bleeding, No Dysuria, No Urinary Frequency, No Hematuria, No Urinary Incontinence, No Urgency, No Flank Pain, No Urinary Flow Changes, No Hesitancy Musculoskeletal : No joint pain, No Myalgias, No Joint Swelling Skin : Complaining of abrasions to the knees Neuro : No Weakness, No Numbness, No Paresthesias, No Loss of Consciousness, No Dizziness, No Headache Psych : No Anxiety/Panic, No Depression, No SI/HI/AH/VH, No Social Issues, Heme/Lymph: No Bruising, No Bleeding,No Lymphadenopathy Endocrine : No Polyuria, No Polydipsia, No Temperature Intolerance <Jaki Aguilar MD - Last Filed: 01/03/23 19:09> [facility] Past Medical History Medical History: Medical History Pre-diabetes <JOHNATHON Wasserman - Last Filed: 01/03/23 15:13> Social History Social History: Social History Current occupational status: employed 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 <JOHNATHON Wasserman - Last Filed: 01/03/23 15:13> Physical Exam Vital Signs: Vital Signs: Last Vital Signs Temp 97.4 F 01/03/23 15:10 Pulse 81 01/03/23 15:10 Resp 18 01/03/23 15:10 BP 186/92 H 01/03/23 15:10 Pulse Ox 98 01/03/23 15:10 O2 Del Method Room Air 01/03/23 15:10 BMI result Body Mass Index 28.1 <JOHNATHON Wasserman - Last Filed: 01/03/23 15:13> Vital Signs: Last Vital Signs Temp 97.4 F 01/03/23 15:10 Pulse 81 01/03/23 15:10 Resp 18 01/03/23 15:10 BP 186/92 H 01/03/23 15:10 Pulse Ox 98 01/03/23 15:10 O2 Del Method Room Air 01/03/23 15:10 BMI result Body Mass Index 28.1 <Jaki Aguilar MD - Last Filed: 01/03/23 19:09> Const: Other: Appearance: Alert. Oriented X3. No acute distress. Eyes: Pupils equal, round and reactive to light. ENT: Pharynx normal. Swelling along both lateral aspects of the nose, ecchymosis Neck: Normal inspection. Neck supple. No lymph nodes noted. No crepitus CVS: Normal heart rate and rhythm. Pulses normal. Normal S1 and S2 Respiratory: No respiratory distress. Breath sounds normal. No Wheezing. No rales Abdomen: Soft and nontender. No rigidity. No distention. Skin: Skin warm and dry. Multiple abrasions to the forehead, hands, knees Extremities: No lower extremity edema. No Lacerations. No Rash Neuro: Oriented X 3. No motor deficit. No sensory deficit. Moving all extremities. No slurred speech. CN 2 through 12 grossly intact Psych: calm, cooperative, normal affect <Jaki Aguilar MD - Last Filed: 01/03/23 19:09> Course Course Course Narrative: RME - 62 y/o female presents to the ER for evaluation of a mechanical fall while out walking today. She tried to brace her fall with her hands but hit her face on the concrete. She has pain in her nose, lip, bilateral wrists R>L. No LOC and not on blood thinners. Hx falls with head injuries in the past. Plan: CT facial bones, head and c-spine and xr of the wrists. <JOHNATHON Wasserman - Last Filed: 01/03/23 15:13> Medical Decision Making Medical Decision Making MDM Narrative: -my interpretation of CT scan of the head: No intracranial bleed. -I discussed the CT scan findings with the patient, no acute findings on the head, cervical spine, face -x-rays of the wrist are both negative. -patient was given 1 dose of tramadol in the emergency room. <Jaki Aguilar MD - Last Filed: 01/03/23 19:09> Differential Diagnosis Differential Diagnoses: The differential diagnosis associated with the presentation includes (Intracranial bleed, contusion, concussion, nasal fracture) <Jaki Aguilar MD - Last Filed: 01/03/23 19:09> Radiology Impression Discussion of test interpretation with radiology: I have reviewed the radiologist's reading. <Jaki Aguilar MD - Last Filed: 01/03/23 19:09> Radiologist Impression: FINDINGS: Brain: There is no acute intra-axial, extra-axial bleed, masses or midline shift. The charles to white matter difference is maintained normal. There is no acute infarction evolution. The lateral ventricles are symmetrical in size and configuration without enlargement. Bone windows reveal no calvarial abnormality. There is no scalp soft tissue abnormality. Bilateral paranasal sinuses are well-aerated with mild mucoperiosteal thickening left maxillary sinus. CERVICAL SPINE: There is mild straightening of cervical lordosis. The vertebral heights and alignment is normal. There is loss of C5-C6 and C6-C7 disc heights. Rest the disc heights are normal. The craniovertebral junction and the C1-C2 alignment is normal. There is mild ventral spondylosis at the C1-C2 disc level. No visible acute fracture, dislocation or subluxation seen. Prevertebral and paravertebral soft tissues are normal. The airways widely patent. FACIAL BONES: There is normal aeration of bilateral paranasal sinuses and mastoid air cells with a small mucoperiosteal thickening left maxillary sinuses. The bony nick of maxillofacial bones are normal. No visible fracture. The nasal septum is mildly deviated to the right is normal symmetry of the turbinates. The nasal cavity and nasopharyngeal airway is widely patent. Bilateral TM joints are symmetric and normal. No periapical cyst right lower loss molar tooth. There is no acute fracture involving the mandible. The oral cavity is limited in evaluation secondary to dental amalgam artifact CT/CT head/brain wo IV con IMPRESSION: No acute intracranial process seen. Mild mucoperiosteal thickening left maxillary sinus. ? No maxillofacial, nasal or mandibular fracture. There is a periapical lucency along the right lower molar tooth. The oral cavity is limited in evaluation secondary to dental amalgam artifact. FINDINGS: Left wrist: There is no visible acute fracture, dislocation or subluxation. There is normal radiocarpal, intercarpal and carpometacarpal articulation. No soft tissue swelling. Right wrist: There is no visible acute fracture, dislocation or subluxation seen. There is no? radiocarpal, intercarpal and carpometacarpal articulation. No soft tissue swelling. XR/XR wrist RT min 3V IMPRESSION: Unremarkable bilateral wrist exam. <Jaki Aguilar MD - Last Filed: 01/03/23 19:09> Discharge Plan Discharge Clinical Impression: Fall, Multiple contusions, Abrasion of skin <JOHNATHON Wasserman - Last Filed: 01/03/23 15:13> Patient Disposition: Home, Self-Care <JOHNATHON Wasserman - Last Filed: 01/03/23 15:13> Instructions: Contusion in Adults (ED), Abrasion (ED) <JOHNATHON Wasserman - Last Filed: 01/03/23 15:13> Additional Instructions: Please follow-up with your primary care physician tomorrow. If you have any worsening or new symptoms, please return to the emergency room or call 911 <JOHNATHON Wasserman - Last Filed: 01/03/23 15:13> Prescriptions: New tramadol 50 mg tablet 50 mg PO BID PRN (Reason: pain) Qty: 6 0RF olanzapine [Zyprexa] 2.5 mg tablet 2.5 mg PO BEDTIME Qty: 2 0RF No Action ibuprofen 600 mg tablet 600 mg PO Q6-8H PRN (Reason: pain) Qty: 20 0RF metformin 500 mg tablet 500 mg PO BID naproxen 500 mg tablet 500 mg PO BID cyclobenzaprine 10 mg tablet 10 mg PO TID PRN atorvastatin 20 mg tablet 20 mg PO DAILY <JOHNATHON Wasserman - Last Filed: 01/03/23 15:13>
--- OUTSIDE RECORDS SUMMARY | 2023-01-03 19:14 | XMS_ITS ---
Author Name Flash Leslie Address [address], [place] [id number] Organization Flash Leslie MD Address [address], [place] [id number] Care Team Providers Care Brim Rounder Name Role Phone DustinsiobhanLori reyesn Unavailable [phone] DustinsiobhanLori reyesn Unavailable [phone] LYNDSEY AVELAR Unavailable Unavailable Carlos Lawson Unavailable Unavailable Jose Antonio Covarrubias Unavailable Unavailable PROBLEMS Type Condition ICD9-CM Code TLC16-OC Code Onset Dates Condition Status SNOMED Code Problem Pure hypercholesterolemia E78.00 Active 2189652 04 Problem Premenopausal patient N95.9 Active 26 7393172 Problem Vitamin D deficiency E55.9 Active 347 50195 Problem History of lobular carcinoma in situ (LCIS) of breast Z86.000 Active Problem Abnormal mammogram R92.8 Active 62553 0009 Problem Tubular adenoma of colon D12.6 Active 620324907 Problem Other abnormal and inconclusive findings on diagnostic imaging of breast R92.8 Active Problem Tension type headach e, unspecified G44.209 Active 326586245 Problem Sensorineural hearin g loss (SNHL) of both ears H90.3 Active 194 342478 Problem Essential hypertension I10 Active 5 1898997 Problem New onset type 2 diabetes mellitus E11.9 Active 413022285 Problem Primary insomnia F51.01 Active 7515960 ALLERGIES No Known Allergies ENCOUNTERS Encounter Location Date Diagnosis Flash Leslie MD [address] [place] [address] [id number] Nov, New onset type 2 diabetes mellitus E11.9 ; Pure hypercholesterolemia E78.00 and Finger numbness R20.0 Flash Leslie MD [address] [place] [address] [id number] Aug, Flash Leslie MD [address] [place] [address] [id number] May, Pure hypercholesterolemia E78.00 ; Adult general medical exam Z00.00 ; Vitamin D deficiency E55.9 ; New onset type 2 diabetes mellitus E11.9 ; Essential hypertension I10 ; Depression screen Z13.31 and Encounter for screening for other viral diseases Z11.59 Flash Leslie MD [address] [place] [address] [id number] May, Flash Leslie MD [address] [place] [address] [id number] Apr, Flash Leslie MD [address] [place] [address] [id number] Mar, Flash Leslie MD [address] [place] [address] [id number] Mar, New onset type 2 diabetes mellitus E11.9 and Encounter for screening for other viral diseases Z11.59 Flash Leslie MD [address] [place] [address] [id number] Nov, Pure hypercholesterolemia E78.00 ; New onset type 2 diabetes mellitus E11.9 ; Hypotension due to drugs I95.2 and Encounter for screening for other viral diseases Z11.59 Flash Leslie MD [address] [place] [address] [id number] Nov, New onset type 2 diabetes mellitus E11.9 Flash Leslie MD [address] [place] [address] [id number] Aug, Flash Leslie MD [address] [place] [address] [id number] Aug, New onset type 2 diabetes mellitus E11.9 Flash Leslie MD [address] [place] [address] [id number] Jun, Pure hypercholesterolemia E78.00 Flash Leslie MD [address] [place] [address] [id number] May, New onset type 2 diabetes mellitus E11.9 ; Adult general medical exam Z00.00 ; Benign essential microscopic hematuria R31.1 ; Pure hypercholesterolemia E78.00 ; Tubular adenoma of colon D12.6 ; Tension type headache, unspecified G44.209 ; Vitamin D deficiency E55.9 ; Essential hypertension I10 ; Abnormal mammogram R92.8 and Depression screen Z13.31 Flash Leslie MD [address] [place] [address] [id number] 17 May, 2021 Blood tests for routine gene ral physical examination Z00.00 ; Pure hypercholesterolemia E78.00 ; Tubular adenoma of colon D12.6 ; Vitamin D deficiency E55.9 ; New onset type 2 diabetes mellitus E11.9 and Essential hypertension I10 Flash Leslie MD [address] [place] [address] [id number] 12 Oct, 2020 New onset type 2 diabetes mellitus E11.9 ; Encounter for screening for other viral diseases Z11.59 ; Vitamin D deficiency E55.9 ; Abnormal mammogram R92.8 ; Primary insomnia F51.01 and Immunization not carried out because of patient decision for unspecified reason Z28.20 Flash Leslie MD [address] [place] [address] [id number] 08 Oct, 2020 History of lobular carcinoma in situ (LCIS) of breast Z86.000 and Other abnormal and inconclusive findings on diagnostic imaging of breast R92.8 Flash Leslie MD [address] [place] [address] [id number] 28 Sep, 2020 Vitamin D deficiency E55.9 Flash Leslie MD [address] [place] [address] [id number] Jul, New onset type 2 diabetes mellitus E11.9 ; Encounter for screening for other viral diseases Z11.59 ; History of lobular carcinoma in situ (LCIS) of breast Z86.000 and Screening for osteoporosis Z13.820 Flash Leslie MD [address] [place] [address] [id number] May, Annual visit for general donavan lt medical examination with abnormal findings Z00.01 ; New onset type 2 diabetes mellitus E11.9 ; Pure hypercholesterolemia E78.00 ; Tension type headache, unspecified G44.209 ; Vitamin D deficiency E55.9 ; Depression screening Z13.31 ; Encounter for screening for other viral diseases Z11.59 ; Essential hypertension I10 and Encounter for immunization Z23 Flash Leslie MD [address] [place] [address] [id number] 12 May, 2019 Flash Leslie MD [address] [place] [address] [id number] 12 May, 2019 Annual visit for general donavan lt medical examination with abnormal findings Z00.01 ; Hematuria R31.9 ; Prediabetes R73.09 ; Pure hypercholesterolemia E78.00 ; Vitamin D deficiency E55.9 ; Tension type headache, unspecified G44.209 ; History of lobular carcinoma in situ (LCIS) of breast Z86.000 ; Tubular adenoma of colon D12.6 ; Depression screening Z13.31 ; Pain in right knee M25.561 and Sensorineural hearing loss (SNHL) of both ears H90.3 Flash Leslie MD [address] [place] [address] [id number] 07 Nov, 2018 Flash Leslie MD [address] [place] [address] [id number] Nov, Flahs Leslie MD [address] [place] [address] [id number] Oct, Concussion with loss of consciousness of 30 minutes or less, subsequent encounter S06.0X1D Flash Leslie MD [address] [place] [address] [id number] 07 Apr, 2018 Annual visit for general donavan lt medical examination with abnormal findings Z00.01 ; Hematuria, unspecified type R31.9 ; Prediabetes R73.09 ; Pure hypercholesterolemia E78.00 ; Tubular adenoma of colon D12.6 ; Premenopausal patient N95.9 ; Vitamin D deficiency E55.9 and Lethargy R53.83 Flash Leslie MD [address] [place] [address] [id number] 03 Apr, 2018 Blood tests for routine gene ral physical examination Z00.00 ; Prediabetes R73.09 ; Pure hypercholesterolemia E78.00 ; Tension type headache, unspecified G44.209 and Premenopausal patient N95.9 Flash Leslie MD [address] [place] [address] [id number] 07 Aug, 2017 Adverse effect of drug, init ial encounter T88.7XXA Flash Leslie MD [address] [place] [address] [id number] Jul, Flash Leslie MD [address] [place] [address] [id number] 07 Apr, 2017 Annual physical exam Z00.00 ; Pure hypercholesterolemia E78.00 ; Prediabetes R73.09 ; Breast cancer screening Z12.31 ; Premenopausal patient N95.9 and Depression screening negative Z13.89 Flash Leslie MD [address] [place] [address] [id number] Mar, Blood tests for routine gene ral physical examination Z00.00 ; Prediabetes R73.09 and Pure hypercholesterolemia E78.00 Flash Leslie MD [address] [place] [address] [id number] 07 Oct, 2016 Flash Leslie MD [address] [place] [address] [id number] Mar, Encounter for general adult medical examination with abnormal findings Z00.01 ; Prediabetes R73.09 ; Pre-op evaluation Z01.818 ; Family history of hypothyroidism Z83.49 and Non morbid obesity due to excess calories E66.09 Flash Leslie MD [address] [place] [address] [id number] 18 Mar, 2016 Encounter for general adult medical examination without abnormal findings Z00.00 ; Pure hypercholesterolemia E78.0 and Prediabetes R73.09 Flash Leslie MD [address] [place] [address] [id number] Sep, Prediabetes R73.09 and Pure hypercholesterolemia E78.0 Flash Leslie MD [address] [place] [address] [id number] Aug, Transient diplopia H53.2 ; Other type of migraine G43.809 and Refused influenza vaccine Z28.21 Flash Leslie MD [address] [place] [address] [id number] 14 Mar, 2015 Flash Leslie MD [address] [place] [address] [id number] Mar, Annual physical exam V70.0 ; Hypercholesterolemia 272.0 and Pre diabetes 790.29 Flash Leslie MD [address] [place] [address] [id number] Oct, Flash Leslie MD [address] [place] [address] [id number] 15 Sep, 2014 Depression 300.4 and Need fo r prophylactic vaccination and inoculation, Influenza V04.81 Flash Leslie MD [address] [place] [address] [id number] Mar, Flash Leslie MD [address] [place] [address] [id number] Mar, Hypertension 401.9 and Pre diabetes 790.29 Flash Leslie MD [address] [place] [address] [id number] January, Head injury 959.01 ; Hypercholesterolemia 272.0 and Hypertension 401.9 Flash Leslie MD [address] [place] [address] [id number] January, Concussion 850.9 Flash Leslie MD [address] [place] [address] [id number] May, Flash Leslie MD [address] [place] [address] [id number] May, Flash Leslie MD [address] [place] [address] [id number] Apr, Flash Leslie MD [address] [place] [address] [id number] Apr, Abnormal mammogram 793.80 Flash Leslie MD [address] [place] [address] [id number] Apr, Breast nodule 793.89 Flash Leslie MD [address] [place] [address] [id number] Apr, Hypercholesterolemia 272.0 ; Pre diabetes 790.29 and Abnormal mammogram 793.80 Flash Leslie MD [address] [place] [address] [id number] Mar, Flash Leslie MD [address] [place] [address] [id number] Dec, Elevated blood sugar 790.29 ; Hypercholesterolemia 272.0 ; Abnormal mammogram 793.80 and Hypertension 401.9 Flash Leslie MD [address] [place] [address] [id number] Dec, Labs as part of routine exam V72.62 and Pre diabetes 790.29 Flash Leslie MD [address] [place] [address] [id number] Jun, Flash Leslie MD [address] [place] [address] [id number] Jun, Mammogram abnormal 793.80 ; Hypertension 401.9 and Pre diabetes 790.29 Flash Leslie MD [address] [place] [address] [id number] May, Neuropathy 355.9 ; Rash 782. 1 ; Pre diabetes 790.29 and Need for prophylactic vaccination and inoculation, Influenza V04.81 Flash Lesile MD [address] [place] [address] [id number] Aug, Tension type headache, unspecified 339.10 ; Rash and other nonspecific skin eruption 782.1 ; Other acquired deformities of hip 736.39 and Pre diabetes 790.29 Flash Leslie MD [address] [place] [address] [id number] Jun, Unspecified abnormal mammogr am 793.80 ; Tension type headache, unspecified 339.10 ; Concussion with loss of consciousness of unspecified duration 850.5 and Need for prophylactic vaccination and inoculation, Influenza V04.81 Flash Leslie MD [address] [place] [address] [id number] Jun, Flash Leslie MD [address] [place] [address] [id number] Mar, Headache Tension 307.81 IMMUNIZATIONS Vaccine Route Administration Date Status SARS-COV-2 Pfizer Unknown Aug 20, 2021 Administer ed SARS-COV-2 Pfizer Unknown January 10, 2021 Administer ed SARS-COV-2 Pfizer Unknown December 19, 2020 Administ ered Flu Vaccine Unknown Jun 22, 2017 Administered Fluarix Quadrivalent IM Intramuscular May 20, 2014 Ad ministered Flu Vaccine Unknown May 11, 2012 Administered Flu Vaccine Unknown Jun 24, 2011 Administered SOCIAL HISTORY Qualifiers Date Never Smoker REASON FOR REFERRAL FUNCTIONAL STATUS PLAN OF CARE Activity Details VITAL SIGNS Height 57 in 2022-11-29 Height 57 in 2022-06-01 Height 57 in 2022-04-01 Height 57 in 2021-11-26 Height 57 in 2021-05-28 Height 57 in 2020-10-17 Height 57 in 2020-08-04 Height 57 in 2020-05-26 Height 57 in 2019-05-17 Height 57 in 2018-11-02 Height 57 in 2018-04-11 Height 57 in 2017-08-11 Height 57 in 2017-04-11 Height 57 in 2016-03-30 Height 57 in 2015-08-25 Height 57 in 2015-03-18 Height 57 in 2014-05-20 Height 57 in 2014-03-26 Height 57 in 2014-01-22 Height 57 in 2014-01-08 Height N/A in 2013-04-06 Height N/A in 2013-01-02 Height N/A in 2012-07-04 Height N/A in 2012-05-11 Height N/A in 2011-09-02 Height N/A in 2011-06-24 Height 57 in 2011-03-23 Weight 138 lbs 2022-11-29 Weight 127 lbs 2022-06-01 Weight 127 lbs 2022-04-01 Weight 131 lbs 2021-11-26 Weight 164 lbs 2021-05-28 Weight 160 lbs 2020-10-17 Weight 160 lbs 2020-08-04 Weight 155 lbs 2020-05-26 Weight 155 lbs 2019-05-17 Weight 150 lbs 2018-11-02 Weight 144 lbs 2018-04-11 Weight refused lbs 2017-08-11 Weight 156 lbs 2017-04-11 Weight 157 lbs 2016-03-30 Weight 157 lbs 2015-08-25 Weight 166 lbs 2015-03-18 Weight 166 lbs 2014-05-20 Weight 167 lbs 2014-03-26 Weight 169 lbs 2014-01-22 Weight 166 lbs 2014-01-08 Weight 168 lbs 2013-04-06 Weight 166 lbs 2013-01-02 Weight 167 lbs 2012-07-04 Weight 168 lbs 2012-05-11 Weight 162 lbs 2011-09-02 Weight 160 lbs 2011-06-24 Weight 156 lbs 2011-03-23 BMI 29.86 kg/m2 2022-11-29 BMI 27.48 kg/m2 2022-06-01 BMI 27.48 kg/m2 2022-04-01 BMI 28.35 kg/m2 2021-11-26 BMI 35.49 kg/m2 2021-05-28 BMI 34.62 kg/m2 2020-10-17 BMI 34.62 kg/m2 2020-08-04 BMI 33.54 kg/m2 2020-05-26 BMI 33.54 kg/m2 2019-05-17 BMI 32.46 kg/m2 2018-11-02 BMI 31.16 kg/m2 2018-04-11 BMI 33.75 kg/m2 2017-04-11 BMI 33.97 kg/m2 2016-03-30 BMI 33.97 kg/m2 2015-08-25 BMI 35.92 kg/m2 2015-03-18 BMI 35.92 kg/m2 2014-05-20 BMI 36.13 kg/m2 2014-03-26 BMI 36.57 kg/m2 2014-01-22 BMI 35.92 kg/m2 2014-01-08 BMI 36.35 kg/m2 2013-04-06 BMI 35.92 kg/m2 2013-01-02 BMI 36.13 kg/m2 2012-07-04 BMI 36.35 kg/m2 2012-05-11 BMI 35.05 kg/m2 2011-09-02 BMI 34.62 kg/m2 2011-06-24 BMI 33.75 kg/m2 2011-03-23 Temperature 98.3 degrees Fahrenheit Blood pressure systolic 142 mm Hg Blood pressure diastolic 76 mm Hg 2022-11 MEDICATIONS Medication Instructions Dosage Frequency Start Date End Date Duration Status Tylenol 325 MG Orally every 6 hrs 1 tablet as needed 6h Not-Josh harris Vitamin D3 1000 UNIT Orally Once a day 1 tablet 24h Apr, Not-Josh harris Atorvastatin Calcium 20 MG Orally Once a day 1 tablet 24h Nov, 90 days Active Lotrisone 1-0.05 % Externally Twice a day 1 application to affected area 12Aug, 30 days Not-Josh harris FreeStyle Lite Test - In Vitro once a day as directed 24h Aug, 30 days Active Tamoxifen Citrate 20 MG Orally Once a day 1 tablet 24h 30 day(s) NotElisa harris PROCEDURES Procedure Date Ordered Result Body Site FLU VAC NO PRSV 4 JOHANN 3 YRS+ May 20, 2014 ASSAY, GLUCOSE, BLOOD QUANT Jul 04, 2012 -ELECTROCARDIOGRAM, COMPLETE Apr 11, 2018 VENIPUNCT, ROUTINE* April 04, 2017 GLYCATED HEMOGLOBIN TEST May 11, 2012 VENIPUNCT, ROUTINE* May 22, 2021 GLYCATED HEMOGLOBIN TEST February 26, 2022 ASSAY, GLUCOSE, BLOOD QUANT Sep 02, 2011 VENIPUNCT, ROUTINE* Apr 17, 2019 VENIPUNCT, ROUTINE* March 27, 2013 IMMUNIZATION ADMIN May 20, 2014 -ELECTROCARDIOGRAM, COMPLETE March 30, 2016 Flu Vaccine May 11, 2012 ASSAY, GLUCOSE, BLOOD QUANT January 29, 2021 ASSAY, GLUCOSE, BLOOD QUANT Apr 06, 2013 VENIPUNCT, ROUTINE* Sep 15, 2015 VENIPUNCT, ROUTINE* December 25, 2012 ASSAY, GLUCOSE, BLOOD QUANT March 26, 2014 ASSAY, GLUCOSE, BLOOD QUANT April 01, 2022 GLYCATED HEMOGLOBIN TEST January 29, 2021 ASSAY, GLUCOSE, BLOOD QUANT November 29, 2022 GLYCATED HEMOGLOBIN TEST Sep 02, 2011 VENIPUNCT, ROUTINE* Apr 11, 2018 VENIPUNCT, ROUTINE* March 30, 2016 VENIPUNCT, ROUTINE* November 20, 2019 GLYCATED HEMOGLOBIN TEST Apr 06, 2013 -ELECTROCARDIOGRAM, COMPLETE Apr 11, 2017 IMMUNIZATION ADMIN Jun 24, 2011 -ELECTROCARDIOGRAM, COMPLETE March 18, 2015 IMMUNIZATION ADMIN May 11, 2012 VENIPUNCT, ROUTINE* March 22, 2016 Flu Vaccine Jun 24, 2011 GLYCATED HEMOGLOBIN TEST March 26, 2014 -ELECTROCARDIOGRAM, COMPLETE May 17, 2019 GLYCATED HEMOGLOBIN TEST April 01, 2022 ASSAY, GLUCOSE, BLOOD QUANT May 11, 2012 ASSAY, GLUCOSE, BLOOD QUANT February 26, 2022 RESULTS Name Result Date Reference Range Glucose, finger stick 2022-11-29 Value 112 Liver Panel 2022-11-20 Bilirubin Total 1.1 0.0-1.0 Bilirubin Direct 0.2 0.0-0.5 Aspartate Amino Transferase 14 5-31 Alanine Aminotransferase 11 0-3 1 Total Protein 6.9 6.5-8.0 Albumin Level 4.2 3.5-5.0 Alkaline Phosphatase 76 39-117 Glucose Fasting 2022-11-20 Glucose Fasting 101 60-99 Lipid Panel 2022-11-20 Triglycerides 105 Cholesterol 292 LDL Cholesterol Calculated 218 HDL Cholesterol 53 Hemoglobin A1c 2022-11-20 Hemoglobin A1c % 5.5 Estimated Average Glucose 111 Pathology 2022-09-27 Complete Blood Count Auto Diff 2022-05-15 White Blood Count 8.5 4.8-10.8 Red Blood Count 4.28 4.20-5.50 Hemoglobin 13.0 12.0-16.0 Hematocrit 38.3 37.0-47.0 Mean Corpuscular Volume 89.5 80.0 -98.0 Mean Corpuscular Hemoglobin 30.4 27.0-33.0 Mean Corpuscular HGB Conc 33.9 31 .0-35.0 Red Cell Distribution Width 12.6 11.0-16.0 Platelet Count 270 160-400 Mean Platelet Volume 10.2 9.4-12. 3 Neutrophils Percent Auto 56.2 45- 73 Imm Gran Pct Auto 0.4 0.0-0.4 Lymphocytes Percent Auto 35.7 20- 40 Monocytes Percent Auto 6.0 2-11 Eosinophils Percent Auto 1.1 0-4 Basophils Percent Auto 0.6 0-2 NRBC Pct Auto 0.0 0.0-0.2 Neutrophils Absolute Auto 4.8 2. 0-8.3 Imm Gran Abs Auto 0.03 0.00-0.03 Lymphocytes Absolute Auto 3.0 1. 2-4.9 Monocytes Absolute Auto 0.5 0.1- 1.2 Eosinophils Absolute Auto 0.1 0. 0-0.4 Basophils Absolute Auto 0.1 0.0- 0.2 NRBC Abs Auto 0.000 0.0-0.012 Urinalysis and Microscopic 2022-05-15 Color Urine Yellow Appearance Urine Clear PH 6.0 5.0-9.0 Glucose Urine UA Negative Negative Urine Blood Trace Negative Specific [place] - Urine 1.015 1.0 05-1.025 Urine Protein Negative Neg-Trace Urine Ketones Negative Negative Nitrite Urine Negative Negative Leukocyte Esterase Urine Moderate (2+) Ne gative RBC Urine 0-2 0-2 WBC Urine >50 0-5 Squamous Epithelial Cell Urine 3-5 0-2 Bacteria Urine None Seen None Seen Hyaline Casts Urine 0-2 0-2 Comprehensive [place]. Panel Fast 2022-05-15 Sodium 141 135-145 Potassium 4.0 3.3-5.1 Chloride 106 96-108 Carbon Dioxide 23 22-29 Anion Gap 16 12-20 Blood Urea Nitrogen 15 9-16 Creatinine 0.75 0.5-1.4 Estimated Glomerular Filt Rate >60 Glucose Fasting 106 60-99 Calcium 9.0 8.4-10.2 Bilirubin Total 0.9 0.0-1.0 Aspartate Amino Transferase 12 5-31 Alanine Aminotransferase 12 0-3 1 Total Protein 7.1 6.5-8.0 Albumin Level 4.1 3.5-5.0 Alkaline Phosphatase 63 39-117 Lipid Panel 2022-05-15 Triglycerides 153 Cholesterol 187 LDL Cholesterol Calculated 110 HDL Cholesterol 47 Vitamin D 25-OH Total 2022-05-15 Vitamin D 25-OH Total 33.3 >30 Microalbumin, Random 2022-05-15 Creatinine Urine 67.97 Microalbumin Urine 11.0 Microalbum/Creatinine Ratio Ur 16.1 Hemoglobin A1c 2022-05-15 Hemoglobin A1c % 5.4 Estimated Average Glucose 108 Hemoglobin A1c 2022-04-01 Value Hemoglobin A1c 5.5 Glucose, finger stick 2022-04-01 Value 131 Glucose, Whole Blood 2022-01-07 Glucose, Whole Blood 105 60-115 Liver Panel 2021-11-16 Bilirubin Total 0.7 0.0-1.0 Bilirubin Direct 0.3 0.0-0.5 Aspartate Amino Transferase 14 5-31 Alanine Aminotransferase 20 0-3 1 Total Protein 8.1 6.5-8.0 Albumin Level 4.7 3.5-5.0 Alkaline Phosphatase 61 39-117 Glucose Fasting 2021-11-16 Glucose Fasting 123 60-99 Lipid Panel 2021-11-16 Triglycerides 142 Cholesterol 171 LDL Cholesterol Calculated 91 HDL Cholesterol 52 Hemoglobin A1c 2021-11-16 Hemoglobin A1c % 5.8 Estimated Average Glucose 120 Glucose Fasting 2021-08-22 Glucose Fasting 123 60-99 Hemoglobin A1c 2021-08-22 Hemoglobin A1c % 6.2 Estimated Average Glucose 131 Urinalysis and Microscopic 2021-05-22 Color Urine YELLOW Appearance Urine HAZY PH 6.0 5.0-8.0 Glucose Urine UA NEG NEG Urine Blood 2+ NEG Specific [place] - Urine 1.025 1.0 05-1.025 Urine Protein NEG NEG-TRACE Urine Ketones NEG NEG Nitrite Urine NEG NEG Leukocyte Esterase Urine 2+ NEG RBC Urine 1-4 0 WBC Urine 30-49 0-4 Squamous Epithelial Cell Urine 2+ Bacteria Urine 3+ Complete Blood Count Auto Diff 2021-05-22 White Blood Count 9.8 4.8-10.8 Red Blood Count 4.40 4.20-5.50 Hemoglobin 13.3 12.0-16.0 Hematocrit 39.4 37-47 Mean Corpuscular Volume 89.5 80-9 8 Mean Corpuscular Hemoglobin 30.2 27.0-33.0 Mean Corpuscular HGB Conc 33.8 31 .0-35.0 Red Cell Distribution Width 13.0 11.0-16.0 Platelet Count 273 160-400 Mean Platelet Volume 10.6 9.4-12. 3 Neutrophils Percent Auto 49.7 45- 73 Imm Gran Pct Auto 0.4 0.0-0.4 Lymphocytes Percent Auto 41.9 20- 40 Monocytes Percent Auto 5.8 2-11 Eosinophils Percent Auto 1.7 0-4 Basophils Percent Auto 0.5 0-2 NRBC Pct Auto 0.0 0.0-0.2 Neutrophils Absolute Auto 4.9 2. 0-8.3 Imm Gran Abs Auto 0.04 0.00-0.03 Lymphocytes Absolute Auto 4.1 1. 2-4.9 Monocytes Absolute Auto 0.6 0.1- 1.2 Eosinophils Absolute Auto 0.2 0. 0-0.4 Basophils Absolute Auto 0.1 0.0- 0.2 NRBC Abs Auto 0.000 0.0-0.012 Urinalysis 2021-05-22 Color Urine YELLOW Appearance Urine HAZY PH 6.0 5.0-8.0 Glucose Urine UA NEG NEG Urine Blood 2+ NEG Specific [place] - Urine 1.025 1.0 05-1.025 Urine Protein NEG NEG-TRACE Urine Ketones NEG NEG Nitrite Urine NEG NEG Leukocyte Esterase Urine 2+ NEG Comprehensive [place]. Panel Fast 2021-05-22 Sodium 140 135-145 Potassium 4.1 3.3-5.1 Chloride 105 96-108 Carbon Dioxide 25 22-29 Anion Gap 14 12-20 Blood Urea Nitrogen 12 9-16 Creatinine 0.83 0.5-1.4 Estimated Glomerular Filt Rate >60 Glucose Fasting 175 60-99 Calcium 9.3 8.4-10.2 Bilirubin Total 1.0 0.0-1.0 Aspartate Amino Transferase 25 5-31 Alanine Aminotransferase 26 0-3 1 Total Protein 7.3 6.5-8.0 Albumin Level 4.3 3.5-5.0 Alkaline Phosphatase 89 39-117 Lipid Panel with Reflex 2021-05-22 Triglycerides 156 Cholesterol 179 LDL Cholesterol Calculated 102 HDL Cholesterol 46 Vitamin D 25-OH Total 2021-05-22 Vitamin D 25-OH Total 24.0 >30 Microalbumin, Random 2021-05-22 Creatinine Urine 145.48 Microalbumin Urine 25.0 Microalbum Creatinine Ratio Ur 17.1 Hemoglobin A1c 2021-05-22 Hemoglobin A1c % 9.0 Estimated Average Glucose 212 Glucose Fasting 2020-11-15 Glucose Fasting 156 60-99 Vitamin D 25-OH Total 2020-11-15 Vitamin D 25-OH Total 31.1 >30 Hemoglobin A1c 2020-11-15 Hemoglobin A1c % 7.6 Estimated Average Glucose 171 MM diagnostic mammo unilat LT 2020-10-23 XR DEXA axial skeleton 2020-10-23 US breast LT limited 2020-10-23 MAMMOGRAM DIGITAL BILATERAL SCREEN 1-27 HEMOGLOBIN A1C (GLYCOHEMOGLOBIN) HEMOGLOBIN A1C % (HH) 7.5 ESTIMATED AVG GLUCOSE 169 PROFILE, FASTING 2020-05-10 NA 141 135-145 K 4.4 3.3-5.1 CL 105 96-108 CO2 26 22-29 ANION GAP 14 12-20 FASTING BLOOD SUGAR 161 60-99 BUN 16 9-16 CREATININE 0.78 0.5-1.4 ESTIMATED GFR >60 PROTEIN, TOTAL 7.0 6.5-8.0 ALBUMIN 4.2 3.5-5.0 BILIRUBIN, TOTAL 0.6 0.0-1.0 CALCIUM 9.2 8.4-10.2 ALK. PHOS. 80 39-117 GOT 22 5-31 GPT 26 0-31 MICROALBUMIN, RANDOM 2020-05-10 MICALB/CRE RATIO RANDOM URINE 16.3 MICROALBUMIN, RANDOM URINE 21.0 CREATININE, RANDOM URINE 128.64 CBC w DIFF 2020-05-10 WBC 9.9 4.8-10.8 RBC 4.14 4.20-5.50 HEMOGLOBIN 12.6 12.0-16.0 HEMATOCRIT 37.3 37-47 MCV 90.1 80-98 MCH 30.4 27.0-33.0 MCHC 33.8 31.0-35.0 PLATELET COUNT 269 160-400 RDW 13.2 11.0-16.0 NEUTROPHILS 52.3 45-73 LYMPHOCYTES 39.3 20-40 MONOCYTES 6.1 2-11 EOSINOPHILS 1.2 0-4 BASOPHILS 0.5 0-2 ABSOLUTE NEUTROPHIL COUNT 5.2 2. 0-8.3 ABSOLUTE LYMPHOCYTE COUNT 3.9 1. 2-4.9 ABSOLUTE MONOCYTE COUNT 0.6 0.1- 1.2 ABSOLUTE EOSINOPHIL COUNT 0.1 0. 0-0.4 ABSOLUTE BASOPHIL COUNT 0.1 0.0- 0.2 VITAMIN D 25-OH TOTAL 2020-05-10 VITAMIN D 25-OH TOTAL 24.7 >30 LIPOPROTEIN FRACTIONATION W/ RFLX (LIPID PNL W/RFLX) 2020-05-10 CHOLESTEROL 271 TRIGLYCERIDE 187 HDL 41 LDL CALCULATED 193 URINALYSIS + MICROSCOPIC 2020-05-10 COLOR YELLOW APPEARANCE,(UA) HAZY SPECIFIC GRAVITY 1.010 1.005-1.025 LEUKOCYTES 1+ NEG NITRITE NEG NEG PROTEIN,QUALITATIVE NEG NEG - TR JEANCARLOS PH 8.0 5.0-8.0 URINE BLOOD TRACE NEG KETONES NEG NEG GLUCOSE NEG NEG MICROSCOPIC WBC 5-9 0-4 MICROSCOPIC RBC 0-2 0 EPITHELIAL CELLS 2+ BACTERIA 4+ cologuard 2019-09-20 HEMOGLOBIN A1C (GLYCOHEMOGLOBIN) HEMOGLOBIN A1C % (HH) 6.4 ESTIMATED AVG GLUCOSE 137 LIPOPROTEIN FRACTIONATION (LIPID PANEL) 2 CHOLESTEROL 167 TRIGLYCERIDE 170 HDL 41 LDL CALCULATED 92 URINALYSIS + MICROSCOPIC 2019-05-05 COLOR YELLOW APPEARANCE,(UA) HAZY SPECIFIC GRAVITY >= 1.030 1.005-1.025 LEUKOCYTES 1+ NEG NITRITE POS NEG PROTEIN,QUALITATIVE NEG NEG - TR JEANCARLOS PH 5.5 5.0-8.0 URINE BLOOD 2+ NEG KETONES NEG NEG GLUCOSE NEG NEG MICROSCOPIC WBC 15-29 0-4 MICROSCOPIC RBC 1-4 0 EPITHELIAL CELLS 2+ BACTERIA 2+ MUCUS 2+ PROFILE, FASTING 2019-05-05 NA 141 135-145 K 4.3 3.3-5.1 CL 109 96-108 CO2 25 22-29 ANION GAP 11 12-20 FASTING BLOOD SUGAR 137 60-99 BUN 14 9-16 CREATININE 0.81 0.5-1.4 ESTIMATED GFR >60 PROTEIN, TOTAL 6.6 6.5-8.0 ALBUMIN 4.0 3.5-5.0 BILIRUBIN, TOTAL 0.3 0.0-1.0 CALCIUM 8.8 8.4-10.2 ALK. PHOS. 69 39-117 GOT 13 5-31 GPT 16 0-31 MICROALBUMIN, RANDOM 2019-05-05 MICALB/CRE RATIO RANDOM URINE 22.0 MICROALBUMIN, RANDOM URINE 38.0 CREATININE, RANDOM URINE 172.12 CBC w DIFF 2019-05-05 WBC 9.6 4.8-10.8 ABSOLUTE NEUTROPHIL COUNT 5.2 2. 2-7.9 RBC 4.08 4.20-5.50 HEMOGLOBIN 12.9 12.0-16.0 HEMATOCRIT 37.4 37-47 MCV 91.5 80-98 MCH 31.6 27.0-33.0 MCHC 34.6 31.0-35.0 PLATELET COUNT 233 160-400 RDW 11.3 11.0-16.0 NEUTROPHILS 54.0 45-73 LYMPHOCYTES 36.7 20-40 MONOCYTES 6.8 2-11 EOSINOPHILS 1.6 0-4 BASOPHILS 0.9 0-2 VITAMIN D 25-OH TOTAL 2019-05-05 VITAMIN D 25-OH TOTAL 24.2 >30 HEMOGLOBIN A1C (GLYCOHEMOGLOBIN) HEMOGLOBIN A1C % (HH) 6.3 ESTIMATED AVG GLUCOSE 134 LIPOPROTEIN FRACTIONATION (LIPID PANEL) 2 CHOLESTEROL 184 TRIGLYCERIDE 143 HDL 52 LDL CALCULATED 104 FASTING BLOOD SUGAR (FBS, GLUCOSE) 09 FASTING BLOOD SUGAR 115 60-99 LIVER PROFILE 2018-10-14 PROTEIN, TOTAL 6.8 6.5-8.0 ALBUMIN 4.1 3.5-5.0 BILIRUBIN, TOTAL 0.7 0.0-1.0 BILIRUBIN, DIRECT 0.2 0.0-0.5 ALK. PHOS. 54 39-117 GOT 14 5-31 GPT 15 0-31 TSH, 3RD GENERATION 2018-04-11 TSH 2.00 Electrocardiogram (EKG) 2018-04-11 URINALYSIS + MICROSCOPIC 2018-04-08 COLOR STRAW APPEARANCE,(UA) CLEAR SPECIFIC GRAVITY <= 1.005 1.005-1.025 LEUKOCYTES 1+ NEG NITRITE NEG NEG PROTEIN,QUALITATIVE NEG NEG - TR JEANCARLOS PH 6.5 5.0-8.0 URINE BLOOD 1+ NEG KETONES NEG NEG GLUCOSE NEG NEG MICROSCOPIC WBC 5-9 0-4 MICROSCOPIC RBC 0-2 0 EPITHELIAL CELLS NONE BACTERIA 1+ HEMOGLOBIN A1C (GLYCOHEMOGLOBIN) HEMOGLOBIN A1C % (HH) 6.1 ESTIMATED AVG GLUCOSE 128 LIPOPROTEIN FRACTIONATION (LIPID PANEL) 2 CHOLESTEROL 214 TRIGLYCERIDE 222 HDL 48 LDL CALCULATED 122 PROFILE, FASTING 2018-04-08 NA 140 135-145 K 4.1 3.3-5.1 CL 105 96-108 CO2 25 22-29 ANION GAP 14 12-20 FASTING BLOOD SUGAR 121 60-99 BUN 14 9-16 CREATININE 0.74 0.5-1.4 ESTIMATED GFR >60 PROTEIN, TOTAL 6.9 6.5-8.0 ALBUMIN 4.1 3.5-5.0 BILIRUBIN, TOTAL 0.4 0.0-1.0 CALCIUM 9.8 8.4-10.2 ALK. PHOS. 58 39-117 GOT 14 5-31 GPT 15 0-31 MICROALBUMIN, RANDOM 2018-04-08 MICALB/CRE RATIO RANDOM URINE Test not performed MICROALBUMIN, RANDOM URINE < 5.0 CREATININE, RANDOM URINE 31.52 CBC w DIFF 2018-04-08 WBC 9.1 4.8-10.8 ABSOLUTE NEUTROPHIL COUNT 4.9 2. 2-7.9 RBC 4.28 4.20-5.50 HEMOGLOBIN 13.4 12.0-16.0 HEMATOCRIT 39.1 37-47 MCV 91.5 80-98 MCH 31.4 27.0-33.0 MCHC 34.3 31.0-35.0 PLATELET COUNT 246 160-400 RDW 11.5 11.0-16.0 NEUTROPHILS 54.1 45-73 LYMPHOCYTES 37.3 20-40 MONOCYTES 6.0 2-11 EOSINOPHILS 1.2 0-4 BASOPHILS 1.3 0-2 VITAMIN D 25-OH TOTAL 2018-04-08 VITAMIN D 25-OH TOTAL 23.8 >30 MAMMOGRAM DIGITAL BILATERAL SCREEN 2016-09 0-23 Electrocardiogram (EKG) 2017-04-11 HEMOGLOBIN A1C (GLYCOHEMOGLOBIN) HEMOGLOBIN A1C % (HH) 6.1 ESTIMATED AVG GLUCOSE 128 PROFILE, FASTING 2017-04-04 NA 144 135-145 K 3.9 3.3-5.1 CL 108 96-108 CO2 24 22-29 ANION GAP 16 12-20 FASTING BLOOD SUGAR 115 60-99 BUN 12 9-16 CREATININE 0.82 0.5-1.4 ESTIMATED GFR >60 PROTEIN, TOTAL 7.0 6.5-8.0 ALBUMIN 4.1 3.5-5.0 BILIRUBIN, TOTAL 0.5 0.0-1.0 CALCIUM 9.5 8.4-10.2 ALK. PHOS. 61 39-117 GOT 22 5-31 GPT 25 0-31 MICROALBUMIN, RANDOM 2017-04-04 MICALB/CRE RATIO RANDOM URINE 11.8 MICROALBUMIN, RANDOM URINE 8.0 CREATININE, RANDOM URINE 67.69 CBC w DIFF 2017-04-04 WBC 10.4 4.8-10.8 ABSOLUTE NEUTROPHIL COUNT 5.5 2. 2-7.9 RBC 4.07 4.20-5.50 HEMOGLOBIN 13.2 12.0-16.0 HEMATOCRIT 39.1 37-47 MCV 96.1 80-98 MCH 32.6 27.0-33.0 MCHC 33.9 31.0-35.0 PLATELET COUNT 240 160-400 RDW 12.7 11.0-16.0 NEUTROPHILS 53.2 45-73 LYMPHOCYTES 38.2 20-40 MONOCYTES 5.8 2-11 EOSINOPHILS 1.8 0-4 BASOPHILS 0.9 0-2 LIPOPROTEIN FRACTIONATION W/ RFLX (LIPID PNL W/RFLX) 2017-04-04 CHOLESTEROL 170 TRIGLYCERIDE 197 HDL 49 LDL CALCULATED 82 URINALYSIS + MICROSCOPIC 2017-04-04 COLOR STRAW APPEARANCE,(UA) HAZY SPECIFIC GRAVITY 1.015 1.005-1.025 LEUKOCYTES TRACE NEG NITRITE NEG NEG PROTEIN,QUALITATIVE NEG NEG - TR JEANCARLOS PH 5.0 5.0-8.0 URINE BLOOD 1+ NEG KETONES NEG NEG GLUCOSE NEG NEG MICROSCOPIC WBC 1-4 0-4 MICROSCOPIC RBC 0-2 0 EPITHELIAL CELLS TRACE BACTERIA TRACE MRI KNEE RT NO CONTRAST 2016-12-29 TSH (THYROID STIMULATING HORMONE) 2016-03 TSH 2.85 0.32-4.0 PROTHROMBIN TIME (PT, INR) 2016-03-30 INTERNATIONAL NORM. RATIO 1.0 SE E NOTE PROTHROMBIN TIME 11.2 9.7-13.3 PARTIAL THROMBOPLASTIN TIME (PTT) 2016-03 PARTIAL THROMBOPLASTIN TIME 30.9 24.2-37.7 Electrocardiogram (EKG) 2016-03-30 HEMOGLOBIN A1C (GLYCOHEMOGLOBIN) HEMOGLOBIN A1C % (HH) 6.1 ESTIMATED AVG GLUCOSE 128 LIPOPROTEIN FRACTIONATION (LIPID PANEL) 2 CHOLESTEROL 166 TRIGLYCERIDE 234 HDL 48 LDL CALCULATED 72 PROFILE, FASTING 2016-03-22 NA 141 135-145 K 4.1 3.3-5.1 CL 108 96-108 CO2 23 22-29 ANION GAP 14 12-20 FASTING BLOOD SUGAR 126 60-99 BUN 13 9-16 CREATININE 0.77 0.5-1.4 ESTIMATED GFR >60 PROTEIN, TOTAL 6.5 6.5-8.0 ALBUMIN 4.0 3.5-5.0 BILIRUBIN, TOTAL 0.5 0.0-1.0 CALCIUM 8.6 8.4-10.2 ALK. PHOS. 59 39-117 GOT 12 5-31 GPT 11 0-31 MICROALBUMIN, RANDOM 2016-03-22 MICALB/CRE RATIO RANDOM URINE 6.2 MICROALBUMIN, RANDOM URINE 9.0 CREATININE, RANDOM URINE 142.89 CBC w DIFF 2016-03-22 WBC 10.7 4.8-10.8 ABSOLUTE NEUTROPHIL COUNT 5.0 2. 2-7.9 RBC 4.04 4.20-5.50 HEMOGLOBIN 13.2 12.0-16.0 HEMATOCRIT 36.6 37-47 MCV 90.5 80-98 MCH 32.6 27.0-33.0 MCHC 36.0 31.0-35.0 PLATELET COUNT 267 160-400 RDW 11.7 11.0-16.0 NEUTROPHILS 46.6 45-73 LYMPHOCYTES 44.4 20-40 MONOCYTES 5.9 2-11 EOSINOPHILS 2.0 0-4 BASOPHILS 1.1 0-2 URINALYSIS + MICROSCOPIC 2016-03-22 COLOR YELLOW APPEARANCE,(UA) CLEAR SPECIFIC GRAVITY 1.020 1.005-1.025 LEUKOCYTES TRACE NEG NITRITE NEG NEG PROTEIN,QUALITATIVE NEG NEG - TR JEANCARLOS PH 5.5 5.0-8.0 URINE BLOOD 1+ NEG KETONES NEG NEG GLUCOSE NEG NEG MICROSCOPIC WBC 5-9 0-4 MICROSCOPIC RBC 5-9 0 EPITHELIAL CELLS 1+ BACTERIA NONE CASTS NONE MUCUS 2+ HEMOGLOBIN A1C (GLYCOHEMOGLOBIN) HEMOGLOBIN A1C % (HH) 6.0 ESTIMATED AVG GLUCOSE 126 LIPOPROTEIN FRACTIONATION (LIPID PANEL) 2 CHOLESTEROL 149 TRIGLYCERIDE 138 HDL 42 LDL 80 FASTING BLOOD SUGAR (FBS, GLUCOSE) 11 FASTING BLOOD SUGAR 116 60-99 PAP SMEAR (THIN PREP) 2015-03-26 PAP SMEAR (THIN PREP) Electrocardiogram (EKG) 2015-03-18 HEMOGLOBIN A1C (GLYCOHEMOGLOBIN) HEMOGLOBIN A1C % (HH) 6.2 ESTIMATED AVG GLUCOSE 131 LIPOPROTEIN FRACTIONATION (LIPID PANEL) 2 CHOLESTEROL 177 TRIGLYCERIDE 202 HDL 48 LDL 89 URINALYSIS + MICROSCOPIC 2015-03-15 COLOR YELLOW APPEARANCE,(UA) CLEAR SPECIFIC GRAVITY >= 1.030 1.005-1.025 LEUKOCYTES 1+ NEG NITRITE NEG NEG PROTEIN,QUALITATIVE TRACE NEG - TR JEANCARLOS PH 5.5 5.0-8.0 URINE BLOOD 2+ NEG KETONES NEG NEG GLUCOSE NEG NEG MICROSCOPIC WBC 1-4 0-4 MICROSCOPIC RBC 0-2 0 EPITHELIAL CELLS 1+ BACTERIA TRACE CASTS NONE PROFILE, FASTING 2015-03-15 NA 143 135-145 K 3.7 3.3-5.1 CL 106 96-108 CO2 25 22-29 ANION GAP 16 12-20 FASTING BLOOD SUGAR 125 60-99 BUN 11 9-16 CREATININE 0.79 0.5-1.4 ESTIMATED GFR >60 PROTEIN, TOTAL 7.2 6.5-8.0 ALBUMIN 4.2 3.5-5.0 BILIRUBIN, TOTAL 0.7 0.0-1.0 CALCIUM 9.3 8.4-10.2 ALK. PHOS. 58 39-117 GOT 31 5-31 GPT 31 0-31 MICROALBUMIN, RANDOM 2015-03-15 MICALB/CRE RATIO RANDOM URINE 9.7 MICROALBUMIN, RANDOM URINE 28.0 CREATININE, RANDOM URINE 286.30 CBC w DIFF 2015-03-15 WBC 8.9 4.8-10.8 ABSOLUTE NEUTROPHIL COUNT 4.5 2. 2-7.9 RBC 4.36 4.20-5.50 HEMOGLOBIN 13.6 12.0-16.0 HEMATOCRIT 39.5 37-47 MCV 90.6 80-98 MCH 31.2 27.0-33.0 MCHC 34.4 31.0-35.0 PLATELET COUNT 263 160-400 RDW 11.7 11.0-16.0 NEUTROPHILS 49.9 45-73 LYMPHOCYTES 41.2 20-40 MONOCYTES 6.2 2-11 EOSINOPHILS 1.6 0-4 BASOPHILS 1.2 0-2 MAMMOGRAM DIGITAL BILATERAL DIAGNO 4-14 Mammogram cologuard GI BIOPSY 2014-01-29 G.I. BIOPSY Mammogram CHOLESTEROL, TOTAL CHOLESTEROL, TOTAL LIPOPROTEIN FRACTIONATION (LIPID PANEL) 2 CHOLESTEROL 162 TRIGLYCERIDE 132 HDL 38 LDL 98 LIVER PROFILE 2013-03-31 PROTEIN, TOTAL 7.2 6.5-8.0 ALBUMIN 3.8 3.5-5.0 BILIRUBIN, TOTAL 0.8 0.0-1.0 BILIRUBIN, DIRECT 0.3 0.0-0.5 ALK. PHOS. 72 39-117 GOT 12 <3-31 GPT 12 <6-31 URINALYSIS, COMPLETE 2013-01-02 COLOR YELLOW YELLOW APPEARANCE CLEAR CLEAR SPECIFIC GRAVITY 1.005 1.001-1.035 PH 6.0 5.0-8.0 GLUCOSE NEGATIVE NEGATIVE BILIRUBIN NEGATIVE NEGATIVE KETONES NEGATIVE NEGATIVE OCCULT BLOOD NEGATIVE NEGATIVE PROTEIN NEGATIVE NEGATIVE NITRITE NEGATIVE NEGATIVE LEUKOCYTE ESTERASE NEGATIVE NEGATIVE WBC NONE SEEN < OR = 5 RBC NONE SEEN < OR = 3 SQUAMOUS EPITHELIAL CELLS NONE SEEN < OR = 5 BACTERIA NONE SEEN NONE SEEN HYALINE CAST NONE SEEN NONE SEEN MICROALBUMIN, RANDOM URINE (W/CREATININE) 2013-01-02 CREATININE, RANDOM URINE 11 20- 320 MICROALBUMIN 0.3 See Note: MICROALBUMIN/CREATININE RATI O, RANDOM URINE 27 <30 HEMOGLOBIN A1c 2012-12-25 HEMOGLOBIN A1c 5.6 <5.7 LIPID PANEL WITH REFLEX TO DIRECT LDL 201 11-06-21 CHOLESTEROL, TOTAL 259 125-200 HDL CHOLESTEROL 38 >OR = 46 TRIGLYCERIDES 220 <150 LDL-CHOLESTEROL 177 <130 CHOL/HDLC RATIO 6.8 < OR = 5.0 NON HDL CHOLESTEROL 221 COMPREHENSIVE METABOLIC PANEL 2012-12-25 GLUCOSE 111 65-99 UREA NITROGEN (BUN) 15 7-25 CREATININE 0.72 0.50-1.05 eGFR NON-AFR. [place] 98 >OR = 60 eGFR 113 >OR = 60 BUN/CREATININE RATIO NOT APPLICABLE 6-22 SODIUM 141 135-146 POTASSIUM 4.2 3.5-5.3 CHLORIDE 107 98-110 CARBON DIOXIDE 24 19-30 CALCIUM 8.7 8.6-10.4 PROTEIN, TOTAL 6.8 6.1-8.1 ALBUMIN 3.9 3.6-5.1 GLOBULIN 2.9 1.9-3.7 ALBUMIN/GLOBULIN RATIO 1.3 1.0-2 .5 BILIRUBIN, TOTAL 0.5 0.2-1.2 ALKALINE PHOSPHATASE 57 33-130 AST 15 10-35 ALT 9 6-40 CBC (INCLUDES DIFF/PLT) 2012-12-25 WHITE BLOOD CELL COUNT 9.4 3.8-1 0.8 RED BLOOD CELL COUNT 4.18 3.80-5. 10 HEMOGLOBIN 12.8 11.7-15.5 HEMATOCRIT 39.5 35.0-45.0 MCV 94.6 80.0-100.0 MCH 30.7 27.0-33.0 MCHC 32.5 32.0-36.0 RDW 15.0 11.0-15.0 PLATELET COUNT 292 140-400 MPV 8.4 7.5-11.5 ABSOLUTE NEUTROPHILS 5593 1500-78 00 ABSOLUTE LYMPHOCYTES 3187 850-390 0 ABSOLUTE MONOCYTES 498 200-950 ABSOLUTE EOSINOPHILS 103 15-500 ABSOLUTE BASOPHILS 19 0-200 NEUTROPHILS 59.5 LYMPHOCYTES 33.9 MONOCYTES 5.3 EOSINOPHILS 1.1 BASOPHILS 0.2 URINALYSIS, COMPLETE 2012-12-25 COLOR TNP MICROALBUMIN, RANDOM URINE (W/CREATININE) 2012-12-25 CREATININE, RANDOM URINE TNP MICROALBUMIN TNP Glucose, finger stick Value 126 MRI BREAST BILATERAL 2011-05-06 REASON FOR VISIT annual visit, yearly labs, 6 month c/o headache everyday x 2 weeks Covid negative tested 11-26-22 , Covid #1 #2 #3 documented flu vac refused documented, No Covid symptoms except a headache, Stopped Metformin and Atorvastin , lipids, RF, comp visit, Covid #1 #2 #3 documented, Flu vac refused documented, No Covid symptoms, yearly labs, lab order , lab order , RX questions, 3 month c/o nauseaux 2 weeks after taking Metformin was tested for Covid 03-30-22 at work negative, Covid #1 #2 #3 documented flu refused documented, No Covid symptoms, 3 month, Covid #1 #2 #3 flu refused documented, 6 month lipids, Covid #1 #2 #3 documented flu refused documented, No Covid symptoms, REFILL METFORMIN,fasting lipids, lab results , REFILL METFORMIN, FBS A1C, referral , annual exam, review labs, CBACKHEMATURIA, No Covid symptoms Covid #1 and #2 documented, Refused flu vac and documented, fasting labs, 3 MO F/U DM, Do Covid Screen, Needs diabetic retinal eye exam, DIABETIC FOOT EXAM (take off shoes and socks), 6 WK F/U DM, Do Covid Screen no covid symptoms, _update insurance has been updated, video [phone], flu vac refused documented, MLO spot comp order, Bone Density order, FSB, AIC, 2 MO F/U DM-labs on07/28, Do Covid Screen no Covid symptoms gets tested twice a week at work, Ck if had flu shot refused, CK if plans to have T-DAP will go to pharm, Due for Mammo goes to [facility] needs order, Due for Bone Density needs order, PAP has [facility]PECT [facility]IST at [facility] will make own appt, video [phone], Patient does not check blood sugar at home, FBS,AIC,LIPID PANEL, Suggest flu shot, Annual exam, review labs and SEE BACK for diabetes, Depression screening; smoking and alcohol status, Communication Screening, Do COVID Screening NO Covid symptoms getas tested twice a week, Due for flu shot and pneumorefused both, CK if plans to have T-DAP patient to go to pharm, Have pt call insurance co re: [employer] refused, Due for BONE DENSITY, MAMMO, PAP has no appt in the future will go through [facility] ARTIST at [facility] ?name, has been out of BP med x 3 weeks will restart, CELL PHONE WITH CAMERA [phone], Annual fasting labs, Fasting lipids, Suggest flu shot again/if no ask about pneumo, CK if pt has been taking Vit D - if not, cancel Vit D lab test, RX refill Valsartan, Annual Exam, review labs and SEE BACK forhematuria & Diabetes, Depression screening; smoking and alcohol status, EKG, CK if plans to have T-DAP PT AWARE, Due for repeat Colonoscopy this year w/Dr. Lawson PT WILL HAVE IT DONE, Have pt call insurance co re: Sh[employer] PT AWARE, Due for Mammo PT HAS SCHED FOR 06/05 AT [facility], Give Fluvirax PT REFUSED, NEEDS REFILL ON VALSARTAN, Annual exam and review labs, fasting yearly labs,Questions, PH CD on 10/30/18 for a fall on Tuesday, Review CT of head, fasting labs for lipids, ANNUAL EXAM, REVIEW LABS and get repeat U/A for hematuria, Due for Bone Density needs order, Depression sc reening; smoking and alcohol status, EKG, ANNUAL FASTIG LABS, Lab order, right knee gave out, fell down the stairs 08/05/17, Give flu shot pt had it at work in Oct, abdominal distension, Due for T-Dap at Pharmacy pt aware, pt had cortisone injection on right knee the day before with Dr Biggs, Referral, Annual exam and review labs, Depression screening; smoking and alcohol status, EKG, Due for bone density, pap and mammo - give letter, fasting annual labs, RX refill, ANNUAL EXAM, review labs andMUST SEE for abnormal PROFILE (? FBS of 126), Depression screening; smoking and alcohol status, Do EKG, FASTING ANNUAL LABS, 3 week follow up - migraines and diplopia, REVIEW LABS, Due for pap - get doctor's name and last date done, FASTING LIPIDS, ERFU for double vision, chest heaviness, ?TIA, ? Migraine or virus, C/o fatigue, needs refills on Atorvastatin/Diovan, ANNUAL EXAM, review labs and SEE BACK for hematuria, Depression screening; smoking and alcohol status, Due for pap smear - get nameof obstetrician and gynaecologist [facility] 03-25-15, ANNUAL LABS/ FAST 12 HOURS, AMBIEN, 3 WK VISIT, Patient c/o fatigue, nausea,and GONZALEZ x 1 week, REFILL-DIOVAN, 2 MO VISIT for f/u on HTN - med changed at last visit, c/o headaches, 2WKFU on W.C. injury, refill Diovan 80mg and [id number], ERFU/WORK. COMP, Date of Accident 01/03/2014 fell at work hit head on cement floor, MRI Biopsy, OFFICE VISIT, followup to MRI review, Needs M RI guided Biopsy - Right Breast, Needs US right breast, 2 MO VISIT and review labs, Screening for female - cervical, breast, and colon cancer - SUSPECT ARTIST at [facility] will make all appts, alcohol screening, needs refill Valsartan 80mg, 3 MO VISIT, Screening for female - cervical, breast, and colon cancer, alcohol screening, Lipids Due, 6 mo visit and see back for high LDL and abnormal mammogram, Get U/A and for Microalbumin, needs refill Diovan 80 mg, fast 12 hours, Needs Labs before next appt, 1 mo visit,F/U foot pain, 4 wk visit, 6 MO VISIT, 6MOFU, 6 mo visit, 2MOFU, 3MOFU, 1wkfu for workman's comp, headache, nausea, tenderness in the scalp Insurance Providers Health Insurance Type Health Plan Insurance Address Health Plan Insurance Phone Health Plan Insurance Name Health Plan Coverage Dates Member ID Patient Relationship to Subscriber Patient Address Patient Phone Patient Name Patient Date of Subscriber ID Subscriber Name Subscriber Date of Group No [employer] [address] [facility] [id number] [phone] [employer] self Kelsi Landis [id number] [facility] [address] [place] [address] [phone] [facility] self Kelsi Landis [id number]
[2023-01-03] MEDS: traMADoL HCL 50 MG TABLET PO (19:21)
== END 2023-01-03 19:25 | disposition home or self-care (01) ==
PROVIDERS: Emergency Provider Emergency Medicine; PCP Internal Medicine
DX: S00.81XA Abrasion of other part of head, initial encounter (principal); M25.532 Pain in left wrist; M25.531 Pain in right wrist; S60.511A Abrasion of right hand, initial encounter; R51.9 Headache, unspecified; M54.2 Cervicalgia; W01.0XXA Fall on same level from slipping, tripping and stumbling without subsequent striking against object, initial encounter; Y93.9 Activity, unspecified; Y92.480 Sidewalk as the place of occurrence of the external cause; Y99.9 Unspecified external cause status; Z79.899 Other long term (current) drug therapy
CPT/HCPCS: 70450; 70486; 72125; 73110; 99283; 99284

== ENCOUNTER 2023-05-28 07:11 | Outpatient (REF) | payer BC, SELFPAY ==
[2023-05-28 07:39] LABS: MANUAL DIFF FLAG NO
[2023-05-28 08:04] LABS: Basophils Absolute Auto 0.1 X10*3/uL (0.0-0.2); Basophils Percent Auto 0.8 % (0-2); Eosinophils Absolute Auto 0.1 X10*3/uL (0.0-0.4); Eosinophils Percent Auto 1.5 % (0-4); Hematocrit 41.2 % (37.0-47.0); Hemoglobin 13.6 g/dl (12.0-16.0); Imm Gran Abs Auto 0.04 X10*3/uL (0.00-0.03); Imm Gran Pct Auto 0.5 % (0.0-0.4); Lymphocytes Absolute Auto 2.8 X10*3/uL (1.2-4.9); Lymphocytes Percent Auto 36.2 % (20-40); Mean Corpuscular Hemoglobin 29.4 pg (27.0-33.0); Mean Corpuscular Volume 89.2 fL (80.0-98.0); Mean Platelet Volume 9.9 fL (9.4-12.3); Monocytes Absolute Auto 0.5 X10*3/uL (0.1-1.2); Monocytes Percent Auto 6.1 % (2-11); Neutrophils Absolute Auto 4.3 x10*3/uL (2.0-8.3); Neutrophils Percent Auto 54.9 % (45-73); Platelet Count 275 X10*3/uL (160-400); Red Blood Count 4.62 X10*6/uL (4.20-5.50); Red Cell Distribution Width 13.2 % (11.0-16.0); White Blood Count 7.9 X10*3/uL (4.8-10.8)
[2023-05-28 08:18] LABS: Appearance Urine Clear; Color Urine Yellow; Glucose Urine UA Negative (Negative); Leukocyte Esterase Urine Negative (Negative); Nitrite Urine Negative (Negative); PH 5.5 (5.0-9.0); Specific Gravity - Urine 1.025 (1.005-1.025); UMIC TRIGGER UACC YES; Urine Blood Small (1+) (Negative); Urine Ketones Negative (Negative); Urine Protein Negative (Neg-Trace)
[2023-05-28 08:47] LABS: Estimated Average Glucose 123 mg/dL; Hemoglobin A1c % 5.9 % (<6.0)
[2023-05-28 08:59] LABS: Bacteria Urine None Seen (None Seen); Calcium Oxalate Crystals Urine Present; Hyaline Casts Urine 0-2 /LPF (0-2); WBC Urine 0-5 /HPF (0-5)
[2023-05-28 09:00] LABS: Alanine Aminotransferase 13 U/L (0-31); Albumin Level 4.1 g/dL (3.5-5.0); Alkaline Phosphatase 70 U/L (39-117); Anion Gap 13 (12-20); Aspartate Amino Transferase 14 U/L (5-31); Bilirubin Total 0.7 mg/dL (0.0-1.0); Blood Urea Nitrogen 13 mg/dL (9-16); Calcium 9.1 mg/dL (8.4-10.2); Carbon Dioxide 22 mmol/L (22-29); Chloride 110 mmol/L (96-108); Cholesterol 275 mg/dL (<200); Estimated Glomerular Filt Rate > 60; Glucose Random 117 mg/dL (60-115); HDL Cholesterol 54 mg/dL (>40); LDL Cholesterol Calculated 191 mg/dL (<100); Potassium 3.9 mmol/L (3.3-5.1); Sodium 141 mmol/L (135-145); Total Protein 7.3 g/dL (6.5-8.0); Triglycerides 153 mg/dL (<150)
[2023-05-28 09:02] LABS: Creatinine Urine 156.32 mg/dL; Microalbum/Creatinine Ratio Ur 31.3 ug/mg cr (<30)
[2023-05-28 09:06] LABS: Vitamin D 25-OH Total 20.9 ng/mL (>30)
== END 2023-05-28 07:12 | disposition home or self-care (01) ==
LOC: HO.LAB 07:11
PROVIDERS: PCP Internal Medicine; Visit Provider Internal Medicine
DX: Z00.00 Encounter for general adult medical examination without abnormal findings (principal); E78.00 Pure hypercholesterolemia, unspecified; E55.9 Vitamin D deficiency, unspecified; E11.9 Type 2 diabetes mellitus without complications; I10 Essential (primary) hypertension
CPT/HCPCS: 36415; 80053; 80061; 81001; 82043; 82306; 82570; 83036; 85025

== ENCOUNTER → 2023-06-28 10:56 | Outpatient (BNVA) | payer OTHER, SELFPAY | PROVIDERS: PCP Internal Medicine; Visit Provider Physician Assistant Medical | DX: S83.411A Sprain of medial collateral ligament of right knee, initial encounter (principal); X50.9XXA Other and unspecified overexertion or strenuous movements or postures, initial encounter; M17.11 Unilateral primary osteoarthritis, right knee | CPT/HCPCS: 99203 ==

== ENCOUNTER → 2023-07-05 13:30 | Outpatient (BNVA) | payer OTHER, SELFPAY | PROVIDERS: PCP Internal Medicine; Visit Provider Physician Assistant Medical | DX: S83.411A Sprain of medial collateral ligament of right knee, initial encounter (principal); X50.9XXA Other and unspecified overexertion or strenuous movements or postures, initial encounter; M17.11 Unilateral primary osteoarthritis, right knee | CPT/HCPCS: 99213 ==

== ENCOUNTER → 2023-07-19 10:58 | Outpatient (BNVA) | payer OTHER, SELFPAY | PROVIDERS: PCP Internal Medicine; Visit Provider Physician Assistant Medical | DX: S83.411D Sprain of medial collateral ligament of right knee, subsequent encounter (principal); X50.9XXD Other and unspecified overexertion or strenuous movements or postures, subsequent encounter; M17.11 Unilateral primary osteoarthritis, right knee | CPT/HCPCS: 99213 ==

== ENCOUNTER → 2023-11-04 08:37 | Outpatient (BNVA) | payer OTHER, SELFPAY | PROVIDERS: PCP Internal Medicine; Visit Provider Physician Assistant | DX: S29.012A Strain of muscle and tendon of back wall of thorax, initial encounter (principal); S83.91XA Sprain of unspecified site of right knee, initial encounter; W18.49XA Other slipping, tripping and stumbling without falling, initial encounter | CPT/HCPCS: 99203 ==

== ENCOUNTER → 2023-11-09 11:09 | Outpatient (BNVA) | payer OTHER, SELFPAY | PROVIDERS: PCP Internal Medicine; Visit Provider Physician Assistant | DX: S29.012A Strain of muscle and tendon of back wall of thorax, initial encounter (principal); S83.91XA Sprain of unspecified site of right knee, initial encounter; W18.30XA Fall on same level, unspecified, initial encounter | CPT/HCPCS: 99213 ==

== ENCOUNTER → 2023-11-17 14:45 | Outpatient (BNVA) | payer OTHER, SELFPAY | PROVIDERS: PCP Internal Medicine; Visit Provider Physician Assistant | DX: S29.012A Strain of muscle and tendon of back wall of thorax, initial encounter (principal); S46.012A Strain of muscle(s) and tendon(s) of the rotator cuff of left shoulder, initial encounter; S83.91XA Sprain of unspecified site of right knee, initial encounter; W18.49XA Other slipping, tripping and stumbling without falling, initial encounter | CPT/HCPCS: 99214 ==

== ENCOUNTER 2023-11-26 07:11 | Outpatient (REF) | payer BC, SELFPAY ==
[2023-11-26 07:57] LABS: Estimated Average Glucose 128 mg/dL; Hemoglobin A1c % 6.1 % (<6.0)
[2023-11-26 08:06] LABS: Alanine Aminotransferase 12 U/L (0-31); Albumin Level 4.1 g/dL (3.5-5.0); Alkaline Phosphatase 83 U/L (39-117); Aspartate Amino Transferase 12 U/L (5-31); Bilirubin Direct 0.2 mg/dL (0.0-0.5); Bilirubin Total 0.7 mg/dL (0.0-1.0); Cholesterol 168 mg/dL (<200); Glucose Fasting 138 mg/dL (60-99); HDL Cholesterol 50 mg/dL (>40); LDL Cholesterol Calculated 97 mg/dL (<100); Total Protein 7.3 g/dL (6.5-8.0); Triglycerides 105 mg/dL (<150)
[2023-11-26 09:49] LABS: Reflex LDLD? No
== END 2023-11-26 07:12 | disposition home or self-care (01) ==
LOC: HO.LAB 07:11
PROVIDERS: PCP Internal Medicine; Visit Provider Internal Medicine
DX: E78.00 Pure hypercholesterolemia, unspecified (principal); E11.9 Type 2 diabetes mellitus without complications
CPT/HCPCS: 36415; 80061; 80076; 82947; 83036

== ENCOUNTER 2023-12-02 13:06 | Outpatient (AMB) | payer BC, SELFPAY ==
--- NOTE | 2023-12-02 13:33 | A.OFFVIS_ITS ---
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 She is doing well with no concerns. Attempting to eat a healthy diet with calcium and vitamin D and stays active walking at work. Currently not very sexually active w/. Denies any vaginal dryness or irritation. STI testing offered; she declines. Last pap smear; 2019, negative. Last mammogram; UTD at [facility], no records available. Colonoscopy is UTD. Denies any family history of breast, ovarian or colon cancer. [facility] Medical History Pre-diabetes Surgical History (Updated 12/02/23 @ 13:42 by Cleo Colbert CMA) Hx of eye surgery History of surgical removal of meniscus of knee Hx of bilateral breast reduction surgery Family History (Updated 12/02/23 @ 14:18 by Gillian Viveros CNM) Mother Diabetes Father Cirrhosis HTN (hypertension) Paternal Uncle Heart attack Maternal Grandfather Cancer of kidney Sister Breast cancer, Onset Age: 27 Thyroid cancer Brother Skin cancer Social History (Updated 12/02/23 @ 13:47 by Cleo Colbert CMA) Household Members: Spouse Household Members Other:: son Housing: House Alcohol intake: current Alcohol intake frequency: holidays/special occasions only Patient Tobacco Use Status: Never used Tobacco Current occupational status: employed 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 Sexually active: Yes Sexual orientation: Straight/Heterosexual Gender identity: Female Female Reproductive History Menstrual Menopause type: natural Total pregnancies: 0 Review of Systems Const All systems reviewed & are unremarkable except as noted in HPI and below Reports as per HPI Eyes Reports no additional complaints ENT Reports no additional complaints Card Reports no additional complaints Resp Reports no additional complaints GI Reports as per HPI and Reports no additional complaints Reports as per HPI Musc Reports no additional complaints Skin/Breast Reports as per HPI Neuro Reports no additional complaints Psych Reports no additional complaints Endo Reports no additional complaints Migel/Lymph Reports no additional complaints Aller/Immun Reports no additional complaints Physical Exam Vital Signs: Last Vital Signs BP 150/92 H 12/02/23 13:37 BMI result Body Mass Index 32.5 Const General: cooperative, healthy appearing, no acute distress, well developed and alert Orientation/consciousness: patient oriented x3 HEENT Head: Yes normal to inspection Eyes General: appearance normal, both eyes and all related structures Neck Neck: Yes normal visual inspection Thyroid: Thyroid normal Chest Chest palpation & inspection: normal inspection of the chest and other (no puckering, dimpling, peau de orange, retraction, discharge, masses) Breast/axilla inspection: normal inspection of the breasts Breast/axilla palpation: normal palpation of the breasts Resp Effort & Inspection: normal respiratory effort GI Inspection: Yes normal to inspection Palpation (GI): Soft to palpation Rectal Exam - Female: deferred General: Yes bladder normal to palpation External Female Exam: normal external appearance and normal appearance of the urethra Speculum Exam - Vagina: normal appearance of the vagina, normal palpation, normal vaginal discharge and vagina atrophic Speculum Exam - Cervix: normal appearance of the cervix and normal palpation Bimanual exam- vagina & uterus: normal bimanual exam, normal palpation, uterine size normal, bladder normal to palpation, normal palpation and non-tender Bimanual Exam- Adnexa, other: no masses Skin General skin exam: no rashes or lesions noted Rashes: no rashes Neuro General: patient oriented x3 Cognition (Neuro): normal cognition Extrem General: Yes normal to inspection Psych Attitude: cooperative Thought process: Normal thought process present Assessment & Plan Assessment & Plan (1) Encounter for well woman exam with routine gynecological exam: Code(s): Z01.419 - Encounter for gynecological examination (general) (routine) without abnormal findings Plan Discussed: Current recommendations for pap smears per ASCCP guidelines. Breast awareness, periodic self breast exams and yearly mammogram. Maintain a healthy lifestyle, well balanced diet including Calcium 1,200 mg and Vitamin D 600 IU daily, and routine exercise. Replens moisturizer and vaginal lubricants. Contact the office with any postmenopausal bleeding. Patient verbalizes understanding and agrees to the plan of care. She was given opportunity to ask questions and all questions were answered to the best of my ability. RTO in 1 year for annual oyster floater exam. This note is constructed using voice recognition software. While every effort has been made to ensure accuracy, solar sales representative and assessor errors may have been included. Coding Level of Care Code New Pt Prev Care 40-64y(94837) Diagnoses Encounter for well woman exam with routine gynecological exam Z01.419
[2023-12-02 13:37] VITALS: BP 150/92; BMI 32.5
== END 2023-12-02 14:34 | disposition home or self-care (01) ==
PROVIDERS: PCP Internal Medicine; Visit Provider Advanced Practice Midwife
DX: Z01.419 Encounter for gynecological examination (general) (routine) without abnormal findings (principal)
CPT/HCPCS: 99386

== ENCOUNTER → 2023-12-02 13:06 | Outpatient (BNVA) | payer OTHER, SELFPAY | PROVIDERS: PCP Internal Medicine; Visit Provider Advanced Practice Midwife ==

== ENCOUNTER → 2023-12-08 13:27 | Outpatient (BNVA) | payer OTHER, SELFPAY | PROVIDERS: PCP Internal Medicine; Visit Provider Physician Assistant | DX: S83.91XD Sprain of unspecified site of right knee, subsequent encounter (principal); S29.012D Strain of muscle and tendon of back wall of thorax, subsequent encounter; S43.82XD Sprain of other specified parts of left shoulder girdle, subsequent encounter; W18.40XD Slipping, tripping and stumbling without falling, unspecified, subsequent encounter | CPT/HCPCS: 99213 ==

== ENCOUNTER → 2023-12-28 14:39 | Outpatient (BNVA) | payer OTHER, SELFPAY | PROVIDERS: PCP Internal Medicine; Visit Provider Physician Assistant | DX: S83.91XD Sprain of unspecified site of right knee, subsequent encounter (principal); S43.82XD Sprain of other specified parts of left shoulder girdle, subsequent encounter; W18.49XD Other slipping, tripping and stumbling without falling, subsequent encounter | CPT/HCPCS: 99213 ==

== ENCOUNTER 2024-01-04 14:00 | Outpatient (RCR) | payer OTHER, BC, SELFPAY ==
--- NOTE | 2023-12-06 15:17 | MHC.PT.EP ---
[facility] [place] Office [place] Office [place] Office [address] Carolin Dorantes [address] [phone] F: [phone] F: [phone] F: [phone] F: [phone] Physical Therapy Plan of Care Date of Evaluation: 12/06/23 Date of Surgery: Diagnosis: UPPER BACK SCAPULAR PAIN Assessment: 63 YO FEMALE REF TO PT W DX OF UPPER BACK/ LEFT SCAP PAIN S/P SLIPPING ON ICE WHILE GETTING OUT OF HER CAR AT WORK ON 11/17/23. THE Pt WAS OOW x 1 WK AND HAS SINCE RTW REG DUTY. SHE HAS DECR CERV AND TRUNK AROM, (+) SCAP/ POST RC STRENGTH DEFICITS, DECR POSTURAL AWARENESS, (+) SOFT TISSUE IRRIT Lt SCAP AREA, AND FLUCTUATING PAIN IN HER MID BACK/ PARASCAP Lt. FUNCTIONALLY, THE Pt HAS DECR RAE TO PROLONGED WALKING, DRIVING, SLEEPING, AND AT RANDOM TIMES OF THE DAY. SHE WOULD BENEFIT FROM PT TO ADDRESS THE ABOVE FINDINGS, ESPEC DECR LEFT SCAP TISSUE IRRITABILITY, DEV A HEP AND SX MGMT TECHN, AND PAIN MGMT. Frequency and Duration: The patient will be seen 2 x WK x 4 WKS Short Term Goals: *DECR LEFT SCAPULAR PAIN TO 2-3/10 *IMPROVE POSTURAL AWARENESS TO DECR POSTERIOR CHAIN STRAIN *INITIATE HEP *WFL CERV AROM Fpc Goals: *INDEP W HEP AND SELF SX MGMT TECHN *Pt RESUME REG ADLs AND WORK TASKS W/O SXS EVIDENT IN IMPROVED OSWESTRY (AT EVAL ) Treatment Plan: Modalities to reduce pain, spasms and effusion. Manual therapy to restore motion and function. Therapeutic exercise to improve strength and flexibility. Neuromuscular re-education for posture and balance. Therapeutic activities to return to functional activities of daily living. Electronically signed by: LAURA OLIVAREZ,PT Please sign and return to therapist. Thank you for your referral.
--- NOTE | 2024-01-04 14:59 | MHC.PT.DC ---
[facility] [place] Office [place] Office [place] Office [address] Carolin Dorantes [address] [phone] F: [phone] F: [phone] F: [phone] F: [phone] Physical Therapy Discharge Report Diagnosis: UPPER BACK SCAPULAR PAIN Date of Surgery: Date of Evaluation: 12/06/23 Date of Discharge: 01/04/24 Treatments to Date: 7 Cancellations to Date: 0 No Shows to Date: 0 Discharge Status: Achieved Goals Improved Function Independent with HEP Discharge Summary: GINNY HAS NICELY PROGRESSED IN PT -> SHE HAS WFL AROM Lt SH, IMPROVED POSTURE AWARENESS, DEMON APPROP BODY MECH AWARENESS W GENERAL BODY MECH/ WORK SIMUL, AND HAS IMPROVED SCAP STAB AND STRENGTH - SHE HAS A THOROUGH HEP. SHE IS WORKING REG DUTY AND HER PAIN IS RELATIVELY RESOLVED. THE Pt IS D/C'D THIS DATE W HER HEP. Electronically signed by: LAURA OLIVAREZ,PT Please sign and return to therapist. Thank you for your referral.
== END 2024-01-04 14:59 | disposition home or self-care (01) ==
LOC: HO.PT 14:00
PROVIDERS: PCP Internal Medicine; Visit Provider Physician Assistant
DX: M54.6 Pain in thoracic spine (principal)
CPT/HCPCS: 97110; 97162; 97530

== ENCOUNTER → 2024-01-26 13:27 | Outpatient (BNVA) | payer OTHER, SELFPAY | PROVIDERS: PCP Internal Medicine; Visit Provider Physician Assistant | DX: S83.91XD Sprain of unspecified site of right knee, subsequent encounter (principal); W18.49XD Other slipping, tripping and stumbling without falling, subsequent encounter; M25.512 Pain in left shoulder | CPT/HCPCS: 99213 ==

== ENCOUNTER → 2024-03-07 10:49 | Outpatient (BNVA) | payer OTHER, SELFPAY | PROVIDERS: PCP Internal Medicine; Visit Provider Physician Assistant | DX: S83.91XD Sprain of unspecified site of right knee, subsequent encounter (principal); W18.49XD Other slipping, tripping and stumbling without falling, subsequent encounter | CPT/HCPCS: 99213 ==

== ENCOUNTER 2024-04-04 16:00 | Outpatient (RCR) | payer OTHER, BC, SELFPAY | END 2024-04-04 17:13 | disposition home or self-care (01) | LOC: HO.PT 16:00 | PROVIDERS: PCP Internal Medicine; Visit Provider Orthopaedic Surgery | DX: M17.11 Unilateral primary osteoarthritis, right knee (principal) | CPT/HCPCS: 97110; 97112; 97161; 97530 ==

== ENCOUNTER 2024-05-26 07:01 | Outpatient (REF) | payer BC, SELFPAY ==
[2024-05-26 07:14] LABS: MANUAL DIFF FLAG NO
[2024-05-26 07:49] LABS: Basophils Absolute Auto 0.1 X10*3/uL (0.0-0.2); Basophils Percent Auto 0.8 % (0-2); Eosinophils Absolute Auto 0.2 X10*3/uL (0.0-0.4); Hematocrit 41.1 % (37.0-47.0); Hemoglobin 13.8 g/dl (12.0-16.0); Imm Gran Abs Auto 0.03 X10*3/uL (0.00-0.03); Imm Gran Pct Auto 0.3 % (0.0-0.4); Lymphocytes Absolute Auto 3.2 X10*3/uL (1.2-4.9); Mean Corpuscular HGB Conc 33.6 g/dl (31.0-35.0); Mean Corpuscular Hemoglobin 29.7 pg (27.0-33.0); Mean Corpuscular Volume 88.6 fL (80.0-98.0); Mean Platelet Volume 9.9 fL (9.4-12.3); Monocytes Absolute Auto 0.6 X10*3/uL (0.1-1.2); Monocytes Percent Auto 6.3 % (2-11); Neutrophils Absolute Auto 4.8 x10*3/uL (2.0-8.3); Neutrophils Percent Auto 54.6 % (45-73); Platelet Count 297 X10*3/uL (160-400); Red Blood Count 4.64 X10*6/uL (4.20-5.50); Red Cell Distribution Width 12.8 % (11.0-16.0); White Blood Count 8.8 X10*3/uL (4.8-10.8)
[2024-05-26 07:57] LABS: Estimated Average Glucose 137 mg/dL; Hemoglobin A1c % 6.4 % (<6.0); Total Hemoglobin (HGBA1C) 3539.1017 umol/L
[2024-05-26 08:24] LABS: Alanine Aminotransferase 13 U/L (0-31); Albumin Level 4.1 g/dL (3.5-5.0); Alkaline Phosphatase 87 U/L (39-117); Anion Gap 13 (12-20); Aspartate Amino Transferase 14 U/L (5-31); Bilirubin Total 0.8 mg/dL (0.0-1.0); Blood Urea Nitrogen 12 mg/dL (9-16); Calcium 9.1 mg/dL (8.4-10.2); Carbon Dioxide 26 mmol/L (22-29); Chloride 108 mmol/L (96-108); Cholesterol 273 mg/dL (<200); Estimated Glomerular Filt Rate > 60; Glucose Fasting 140 mg/dL (60-99); HDL Cholesterol 45 mg/dL (>40); LDL Cholesterol Calculated 186 mg/dL (<100); Sodium 143 mmol/L (135-145); Total Protein 7.7 g/dL (6.5-8.0); Triglycerides 210 mg/dL (<150)
[2024-05-26 08:39] LABS: Vitamin D 25-OH Total 22.6 ng/mL (>30)
[2024-05-26 08:54] LABS: Appearance Urine Clear; Color Urine Yellow; Glucose Urine UA Negative (Negative); Leukocyte Esterase Urine Trace (Negative); Nitrite Urine Negative (Negative); PH 7.5 (5.0-9.0); Specific Gravity - Urine 1.015 (1.005-1.025); UMIC TRIGGER UACC YES; Urine Blood Negative (Negative); Urine Ketones Negative (Negative); Urine Protein Trace mg/dL (Neg-Trace)
[2024-05-26 09:59] LABS: Bacteria Urine None Seen (None Seen); Hyaline Casts Urine 0-2 /LPF (0-2); RBC Urine 0-2 /HPF (0-2); Squamous Epithelial Cell Urine 0-2 /HPF (0-2); WBC Urine 0-5 /HPF (0-5)
[2024-05-26 10:10] LABS: Creatinine Urine 101.26 mg/dL; Microalbum/Creatinine Ratio Ur 56.2 ug/mg cr (<30)
== END 2024-05-26 07:02 | disposition home or self-care (01) ==
LOC: HO.LAB 07:01
PROVIDERS: PCP Internal Medicine; Visit Provider Internal Medicine
DX: Z00.00 Encounter for general adult medical examination without abnormal findings (principal); E78.00 Pure hypercholesterolemia, unspecified; E55.9 Vitamin D deficiency, unspecified; E11.9 Type 2 diabetes mellitus without complications
CPT/HCPCS: 36415; 80053; 80061; 81001; 81003; 82043; 82306; 82570; 83036; 85025

== ENCOUNTER 2024-11-17 07:06 | Outpatient (REF) | payer BC, SELFPAY ==
--- OUTSIDE RECORDS SUMMARY | 2024-11-17 07:10 | XMS_ITS | Clinical Summary ---
Author Organization [facility] Address [address] [place] [address] Care Team Providers Care Plumber Apprentice Name Role Phone Flash Leslie MD Primary Care Provider [phone] Allergies No known active allergies Medications Medication Sig Dispensed Refills Start Date End Date Status atorvastatin (LIPITOR) tablet 10 mg Take 10 mg by mouth every evening. 0 Active Valsartan (DIOVAN PO) Take 20 mg by mouth. 0 Active tamoxifen (NOLVADEX) 20 MG tablet take 1 tablet by mouth once daily 90 tablet 3 03/23/2018 Active Additional Information Patient not taking.Reported on 03/29/2019 Active Problems Problem Noted Date Diagnosed Date Neoplasm of right breast, pr imary tumor staging category Tis: lobular carcinoma in situ (LCIS) 03/25/2017 Atypical ductal hyperplasia of right breast 03/06 Social History Tobacco Use Types Packs/Day Years Used Date Smoking Tobacco: Never Smokeless Tobacco: Never Alcohol Use Standard Drinks/Week Comments No 0 (1 standard drink = 0.6 oz pur e alcohol) Sex and Gender Information Value Date Recorded Sex Assigned at Not on file Gender Identity Not on file Sexual Orientation Not on file Last Filed Vital Signs Vital Sign Reading Time Taken Comments Blood Pressure 163/81 03/29/2019 1:47 PM EDT Pulse 71 03/29/2019 1:47 PM EDT Temperature 36.8 ??C (98.2 ??F) 03/29/2019 1:47 PM ED T Respiratory Rate - - Oxygen Saturation - - Inhaled Oxygen Concentration - - Weight 70.1 kg (154 lb 9.6 oz) 03/29/2019 1:47 P M EDT Height 144.8 cm (4' 9 ) 03/29/2019 1:47 PM EDT Body Mass Index 33.46 03/29/2019 1:47 PM EDT Plan of Treatment Health Maintenance Due Date Last Done Comments Hepatitis C Screening 1960 COVID-19 Vaccine (#1) 1967 Pneumococcal Vaccine (1 of 2 - PCV) 1968 Depression Screening 1974 Preventative Health Evaluation 1980 DTap / Tdap / Td (1 - Tdap) 1981 Shingrix-Zoster Vaccine (1 of 2) 1981 Cervical Cancer Screening (P ap Smear) 1983 Colon Cancer Screening (Colonoscopy) 2007 Breast Cancer Screening (Mammogram) 2012 Influenza Vaccine (#1) 2024 RSV Adult > 60+ Yrs or Pregn ant (1 - 1-dose 75+ series) 2037 Hepatitis B Vaccines Aged Out No long er eligible based on patient's age to complete this topic RSV Ped < 20 months Aged Out No longe r eligible based on patient's age to complete this topic Care Teams Plumber Apprentice Relationship Specialty Start Date End Date Flash Leslie MD [address] [place] [phone] PCP - General Internal Medicine 03/18/17
--- OUTSIDE RECORDS SUMMARY | 2024-11-17 07:10 | XMS_ITS | Patient Health Record ---
Author Organization [facility] Address [address] [place] [address] Care Team Providers Care Public Health Registrar Name Role Phone Flash Acevedo MD Primary Care Provider Rohini Frank Unavailable [phone] Reason For Referral Referring Provider First Name Flash Referring Provider Last Name Mariama Referring Provider Speciality Internal M edicine Referred Organization [facility] Referred Provider Rohini Lawson Referred Address [address] [place] [address],[address],[place], [place],[address],[place] Referred Provider Specialty Gastroentero logy General Notes Jennifer Darby 024 09:56:25 AM EST > requested an o blue referral from dr acevedo's office for visit with Dr. Lawson on 10-08-24 Referral Priority Routine Medications Medication SIG (Take, Route, Frequency, Duration) Notes Start Date End Date Status Imiquimod 5 % External for 30 Active Lisinopril-hydroCHLOROthi azide 10-12.5 MG Oral for 90 Not-Taking Valsartan-hydroCHLOROthia zide 160-12.5 MG Oral for 90 Active Atorvastatin Calcium 20 MG 1 tablet Orally Once a day Active Immunizations Vaccine Route Administration Date Status Comme nts Influenza Unknown 08/08/2019 Refused Influenza Unknown 10/10/2024 Refused Problems Problem Type SNOMED Code ICD Code Onset Dates Problem Status W/U Status Risk Notes Problem [id number] Encounter for screening for malignant neoplasm of colon (Z12.11) Active confirmed Problem 693354538320509 Preprocedural examination (Z01.818) Active confirmed Problem 923924443 Gastroesophageal reflux disease, esophagitis presence not specified (K21.9) Active confirmed Problem 630255041 Hx of adenomatou s colonic polyps (Z86.010) Active confirmed Vital Signs Temperature 97.5 degrees Fahrenheit 10/10/2024 Blood pressure diastolic 00 mm Hg 10/10/2024 Height 58 in 10/10/2024 Blood pressure systolic 00 mm Hg 10/10/2024 Weight 158 lb 2 oz lbs 10/10/2024 BMI 33.04 kg/m2 10/10/2024 Encounters Encounter Location Date Provider Diagnosis [facility] [address] [place] [address] 10/10/2024 Rohini Lawson Hx of adenomatous colonic polyps Z86.010 ; Preprocedural examination Z01.818 and Encounter for screening for malignant neoplasm of colon Z12.11 [facility] [address] [place] [phone] 08/20/2024 Rohini Lawson Assessments Encounter Date Diagnosis (ICD Code) Assessment Notes Treatment Notes Treatment Clinical Notes Section Notes 10/10/2024 Preprocedural examination (ICD-10 - Z01.818) Overall, Kelsi appears quite well. Given her previous history of a tubular adenoma and her last colonoscopy being over 5 years ago, I did recommend a followup colonoscopy for further screening purposes. We did review the rationale for that in regard to colon cancer prevention. Full consent was obtained for this, including risks of bleeding and perforation. The procedure will be done with monitored anesthesia care. Kelsi was comfortable with this plan. Thank you again for allowing me to participate in Kelsi's care. I shall continue to keep you advised of her progress. 10/10/2024 Hx of adenomatous colonic polyps (ICD-10 - Z86.010) Overall, Kelsi appears quite well. Given her previous history of a tubular adenoma and her last colonoscopy being over 5 years ago, I did recommend a followup colonoscopy for further screening purposes. We did review the rationale for that in regard to colon cancer prevention. Full consent was obtained for this, including risks of bleeding and perforation. The procedure will be done with monitored anesthesia care. Kelsi was comfortable with this plan. Thank you again for allowing me to participate in Kelsi's care. I shall continue to keep you advised of her progress. 10/10/2024 Encounter for screening for malignant neoplasm of colon (ICD-10 - Z12.11) Overall, Kelsi appears quite well. Given her previous history of a tubular adenoma and her last colonoscopy being over 5 years ago, I did recommend a followup colonoscopy for further screening purposes. We did review the rationale for that in regard to colon cancer prevention. Full consent was obtained for this, including risks of bleeding and perforation. The procedure will be done with monitored anesthesia care. Kelsi was comfortable with this plan. Thank you again for allowing me to participate in Kelsi's care. I shall continue to keep you advised of her progress. Plan Of Treatment Future Test Test Name Order Date COLONOSCOPY 10/05/2013 COLONOSCOPY 08/08/2019 COLONOSCOPY 10/10/2024 Next Appt Details Provider Name:Rohini Lawson , 01/25/2025 10:30:00 AM, [address] [place] [address] , [place], [place], [phone], Insurance Providers Payer Name Payer Address Payer Phone Subscriber Number Group Number Insured Name Patient Relationship to Insured Coverage Start Date Coverage End Date [facility] [place] [employer] PROF[employer]AL CLAIMS [address] [place] [address] [id number] KELSI SIBLEY Self - patient is the insured Medical (General) History Medical History History ICD Code Hyperlipidemia Denies [place],CVA,Lung disease,renal disease HTN Neg colonoscopy in 02/2003 except for int ernal hemorrhoids Colonoscopy in 01/2014 with a small tubul ar adenima removed Negative colonoscopy in 09/2019 Diet-controlled diabetes Surgical History Surgery Date(Month/Year) Lumpectomy, right breast--bi opsies neg for breast cancer, but sees Dr. Martinez and Dr. Sidney Wiseman at [facility] and was on Tamoxifen 06/2013 Breast reduction Meniscus tear right knee Retinal detachment right eye with laser surgery-successful Trigger fingers on right hand
--- OUTSIDE RECORDS SUMMARY | 2024-11-17 07:10 | XMS_ITS ---
Author Organization [facility] Address [address] [place] [address] Care Team Providers Care Technology Administrator Name Role Phone Flash Leslie MD Primary Care Provider Rohini Frank [phone] REASON FOR VISIT insurance id numbers/ updated Encounters Encounter Location Date Provider Diagnosis [facility] [address] [facility] [address] [place] [phone] 08/20/2024 Rohini Lawson Plan Of Treatment Next Appt Details Provider Name:Rohini Lawson , 01/25/2025 10:30:00 AM, [address] [place] [address] , [place], [place], [phone], Progress Notes * MARTINE SIBLEYOB:1960 ( 64 yo F)Acc No.[id number]:08/20/2024 Patient:?GINYN SIBLEY :1960???Age:64 Y???Sex:Female Address:[address] [place] [address] * true * Date:? Generated for Printi kimberly/Nereida/eTransmitting on:?11/17/2024 07:10 AM EDT
--- OUTSIDE RECORDS SUMMARY | 2024-11-17 07:10 | XMS_ITS ---
Author Organization [facility] Address [address] [place] [phone] Care Team Providers Care Tubular Products Fabricator Name Role Phone Flash Leslie MD Primary Care Provider Rohini Frank Unavailable [phone] REASON FOR VISIT Patient presents today for a COLON RECALL Medications Medication SIG (Take, Route, Frequency, Duration) Notes Start Date End Date Status Imiquimod 5 % External for 30 Active Lisinopril-hydroCHLOROthi azide 10-12.5 MG Oral for 90 Not-Taking Valsartan-hydroCHLOROthia zide 160-12.5 MG Oral for 90 Active Atorvastatin Calcium 20 MG 1 tablet Orally Once a day Active Immunizations Vaccine Route Administration Date Status Comme nts Influenza Unknown 10/10/2024 Refused Vital Signs Temperature 97.5 degrees Fahrenheit 10/10/19 25 Blood pressure systolic 00 mm Hg 10/10/19 25 Blood pressure diastolic 00 mm Hg 025 Height 58 in 10/10/2024 Weight 158 lb 2 oz lbs 10/10/2024 BMI 33.04 kg/m2 10/10/2024 Encounters Encounter Location Date Provider Diagnosis [facility] [address] [place] [phone] 10/10/2024 Rohini Lawson Hx of adenomatous colonic polyps Z86.010 ; Preprocedural examination Z01.818 and Encounter for screening for malignant neoplasm of colon Z12.11 Assessments Encounter Date Diagnosis (ICD Code) Assessment Notes Treatment Notes Treatment Clinical Notes Section Notes 10/10/2024 Hx of adenomatous colonic polyps (ICD-10 [...] keep you advised of her progress. 10/10/2024 Preprocedural examination (ICD-10 - Z01.818) Overall, [...] Future Test Test Name Order Date COLONOSCOPY 10/10/2024 Next Appt Details Follow Up: prn, Reason: Provider Name:Rohini Lawson , 01/25/2025 10:30:00 AM, [address] [place] [address] , [place], [place], [phone], Progress Notes * ROXANE SIBLEYEDOB:1960 ( 64 yo F)Acc No.[id number]:10/10/2024 Progress Notes Patient:?KELSI SIBLEY Provider:?Rohini Lawson MD :1960???Age:64 Y???Sex:Female D ate:10/10/2024 Address:[address] [place], [place] [id number] Pcp:Flash Leslie MD Subjective: * Chief Complaints: * ???Patient presents today fo r a COLON RECALL * HPI: ???incontinence:? I saw Kelsi in the office today for evaluation of her personal history of a tubular adenoma of the colon and need for colorectal cancer screening. ?I last saw Kelsi in September of 2019, at which time she underwent a negative followup screening colonoscopy. She had a tubular adenoma removed on a prior colonoscopy. She presently feels well. She enjoys a good appetite without any significant heartburn or dysphagia. Her bowel movements have been regular and without any signs of bleeding. She denies abdominal pain, signs of jaundice, nor unintentional weight loss. She denies any known family history of colorectal cancer. ?Laboratories from May 2024 revealed a normal CBC, Chemistries and renal function, and LFTs. * ROS:?General/Constitutional:?Change in appetite?denies.?Chills?denies.?Fatigue?denies.?Ophthalmologic:?Comments?all negative.?ENT:?Comments?all negative.?Respiratory:?hemoptysis?denies.?Cough?denies.?Cardiovascular:?Chest pain?denies.?Orthopnea?denies.?Gastrointestinal:?Comments?See HPI for details.?Genitourinary:?Hematuria?denies.?Dysuria?denies.?Musculoskeletal:?Painful joints?denies.?Weakness?denies.?Skin:?Itching?denies.?Rash?denies.?Neurologic:?Headache?denies.?Seizures?denies.?Psychiatric:?Comments?all negative.? * Medical History:? * Surgical History:?Lumpectomy , right breast--biopsies neg for breast cancer, but sees Dr. Martinez and Dr. 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 * Family History:?Father: dece ased, diagnosed with HTN (hypertension).?Mother: , diagnosed with HTN (hypertension).? No known history of colorectal cancer. No family history of liver cancer. * Social History:?Tobacco Use:?Tobacco Use/Smoking?Are you a: nonsmoker.?Drugs/Alcohol:?Alcohol Screen?Points: 0, Interpretation: Negative.?Miscellaneous:?Marital status: . 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 ???Nonsmoker; no sig alcohol. * Medications:?TakingAtorvasta tin Calcium 20 MG Tablet 1 tablet Orally Once a dayValsartan-hydroCHLOROthiazide 160-12.5 MG Tablet Oral Imiquimod 5 % Cream External Taking Atorvastatin Calcium 20 MG Tablet 1 tablet Orally Once a dayTaking Valsartan-hydroCHLOROthiazide 160-12.5 MG Tablet Oral Taking Imiquimod 5 % Cream External Not-Taking/PRNLisinopril-hydroCHLOROthiazide 10-12.5 MG Tablet Oral Not-Taking/PRN Lisinopril-hydroCHLOROthiazide 10-12.5 MG Tablet Oral DiscontinuedDiovan 80 MG Tablet 1 tablet Orally Once a dayMedication List reviewed and reconciled with the patientDiscontinued Diovan 80 MG Tablet 1 tablet Orally Once a dayMedication List reviewed and reconciled with the patient * Allergies:?yes[Allergies Priscila ified] Objective: * Vitals:?Wt: 158 lb 2 oz, Ht: 58 in, BMI:33.04 Index, BP: 00/00 mm Hg, Temp: 97.5. * Examination: ???General Examination: ?GENERAL APPEARANCE:?pleasant, well nourished, well developed, in no acute distress.?EYES:?sclera non-icteric.?ORAL CAVITY:?mucosa moist.?NECK/THYROID:?no cervical lymphadenopathy, neck supple.?SKIN:?nonjaundiced, no spider angiomata.?HEART:?S1, S2 normal.?LUNGS:?clear to auscultation bilaterally.?ABDOMEN:?normal bowel sounds, no guarding or rigidity, no guarding or rigidity, no masses palpable, soft, nontender, nondistended.?EXTREMITIES:?no edema.?NEUROLOGIC:?alert and oriented.? Assessment: * Assessment: 1.?Preprocedural examination - Z01.818 (Primary)?2.?Hx of adenomatous colonic polyps - Z86.010?3.?Encounter for screening for malignant neoplasm of colon - Z12.11? Overall, Kelsi appears quite well. Given her [...] to keep you advised of her progress. Plan: * Treatment: 2.?Encounter for screening for malignant neoplasm of colon?Procedure: COLONOSCOPY (Ordered for 10/10/2024)* with MACsched for 01/25/25 at 10:30 ammiralax * Immunizations:? Influenza (Not administered - Refused: Patient decision) * Procedure Codes:?3017F COLOR ECTAL CA SCREEN DOC [id number] TOBACCO NON-[id number] BP SCR NOT PRFRM REC REASON NOS * Preventive Medicine:? ??Counseling:?Care goal follow-up plan:?Above Normal BMI Follow-up?Giving encouragement to exercise,?BMI management provided?Yes.? * Follow Up:?prn * * Sign off status: Completed true * Provider:?Rohini Lawson MD Date:? 025 Generated for Nohemi harris/Nereida/Ronnie on:?11/17/2024 07:09 AM EDT History and Physical Notes * HPI (History of Present Illness) Category Sub-Category Detail Notes Category Not es incontinence I saw Kelsi in the office today for evaluation of her personal history of a tubular adenoma of the colon and need for colorectal cancer screening. I last saw Kelsi in September of 2019, at which time she underwent a negative followup screening colonoscopy. She had a tubular adenoma removed on a prior colonoscopy. She presently feels well. She enjoys a good appetite without any significant heartburn or dysphagia. Her bowel movements have been regular and without any signs of bleeding. She denies abdominal pain, signs of jaundice, nor unintentional weight loss. She denies any known family history of colorectal cancer. Laboratories from May 2024 revealed a normal CBC, Chemistries and renal function, and LFTs. Examination Category Sub-Category Detail Notes Category Not es General Examination GENERAL APPEARANCE: pleasant , well nourished, well developed, in no acute distress HEAD: EYES: sclera non-icteric EARS: NOSE: THROAT: NECK/THYROID: no cervical lymphade nopathy, neck supple HEART: S1, S2 normal CHEST: LUNGS: clear to auscultatio n bilaterally ABDOMEN: normal bowel sounds, no guarding or rigidity, no guarding or rigidity, no masses palpable, soft, nontender, nondistended NEUROLOGIC: alert and oriented SKIN: nonjaundiced, no spi maría angiomata EXTREMITIES: no edema PERIPHERAL PULSES: BACK: BREASTS: MUSCULOSKELETAL: MALE GENITOURINARY: LYMPH NODES: RECTAL EXAM: FEMALE GENITOURINARY: ORAL CAVITY: mucosa moist
--- OUTSIDE RECORDS SUMMARY | 2024-11-17 07:10 | XMS_ITS ---
Author Organization Flash Leslie MD Address [address] [place], [place] [id number] Care Team Providers Care Cisco Network Architect Name Role Phone Flash Leslie Primary Care Provider Allergies No Known Allergies REASON FOR VISIT 6 WK F/U Medications Medication SIG (Take, Route, Frequency, Duration) Notes Start Date End Date Status Atorvastatin Calcium 20 MG 1 tablet Orally Once a day for 90 days 11/29/2022 Active FreeStyle Lite Test - as directed In Vit ro once a day for 30 days needs DX E11.9 08/26/2022 Active Valsartan-hydroCHLORO thiazide 160-12.5 MG 1 tablet Orally Once a day for 30 days 07/23/2024 Active Lotrisone 1-0.05 % 1 application to affected area Externally Twice a day for 30 days 09/02/2011 Not-Taking Tamoxifen Citrate 20 MG 1 tablet Orally Once a day for 30 day(s) Not-Taking Tylenol 325 MG 1 tablet as needed Orally every 6 hrs Not-Taking Vitamin D3 1000 UNIT 1 tablet Orally Onc e a day 04/11/2018 Not-Taking Vital Signs Height 57 in 09/06/2024 Encounters Encounter Location Date Provider Diagnosis Flash Leslie MD [address] [place] [phone] 09/06/2024 Flash Leslie Plan Of Treatment Next Appt Details Provider Name:Flash P Dustinmary asiya, 11/20/2024 01:45:00 PM, [address] [facility], [address], [place], [phone], Provider Name:Flash Eber Jodi braden, 05/30/2025 08:00:00 AM, [address] [facility], [address], [place], [phone], Provider Name:Flash Eber Jodi braden, 06/06/2025 01:00:00 PM, [address] [place] [address], [address], [place], [phone], Progress Notes * Porsche SIBLEYOB:1960 ( 64 yo F)Acc No.[id number]:09/06/2024 Progress Notes Patient:?Kelsi SIBLEY Provider:?Flash Leslie MD :1960???Age:64 Y???Sex:Female D ate:09/06/2024 Address:[address] [place], [place] [phone] Subjective: * Chief Complaints: * ???1. 6 WK F/U. * ROS:?General/Constitutional:?Denies?Chills.?Denies?Fatigue.?Denies?Fever.?Denies?Headache.?ENT:?Denies?Sore throat.?Respiratory:?Denies?Cough.?Denies?Shortness of breath at rest.?Denies?Shortness of breath with exertion.?Gastrointestinal:?Denies?Diarrhea.?Denies?Nausea.? * Medical History:?01/29/2014 - colonoscopy due in 5 year; Colonoscopy done 09/20/[address] Lawson - repeat 5 years, Hematuria work up in past, Had admission to [facility] and work up with mri mrvenogram,ct all [id number]. felt byu neuro to be a migraine, Concussion with loss of consciousness of unspecified duration. * Medications:?Taking FreeStyl e Lite Test - Strip as directed In Vitro once a day , Notes to Pharmacist: needs DX E11.9, Taking Atorvastatin Calcium 20 MG Tablet 1 tablet Orally Once a day , Taking Valsartan-hydroCHLOROthiazide 160-12.5 MG Tablet 1 tablet Orally Once a day , Not-Taking/PRN Tylenol 325 MG Tablet 1 tablet as needed Orally every 6 hrs , Not-Taking/PRN Vitamin D3 1000 UNIT Tablet 1 tablet Orally Once a day , Not-Taking/PRN Tamoxifen Citrate 20 MG Tablet 1 tablet Orally Once a day , Not-Taking/PRN Lotrisone 1-0.05 % Lotion 1 application to affected area Externally Twice a day * Allergies:?N.K.D.A. Objective: * Vitals:?Ht: 57. Assessment: Plan: * Treatment: * * The named appointment provid er may or may not be the originator of this progress note, and it is not deemed complete until electronically signed by the appointment provider. Sign off status: Pending * Provider:?Flash Leslie MD Date:?0 09/06/2024 Generated for Nohemi harris/Nereida/Ronnie on:?11/17/2024 07:10 AM EDT
--- OUTSIDE RECORDS SUMMARY | 2024-11-17 07:10 | XMS_ITS ---
Author Organization Flash Leslie MD Address [address] [place] [phone] Care Team Providers Care It Infrastructure Consultant Name Role Phone Flash Leslie Primary Care Provider [phone] REASON FOR VISIT referral Encounters Encounter Location Date Provider Diagnosis Flash Leslie MD [address] [facility] [address] [place] [phone] 08/23/2024 Flash Leslie Plan Of Treatment Next Appt Details Provider Name:Flash braden, 11/20/2024 01:45:00 PM, [address] [place] [address], [address] [place] [address], [phone], Provider Name:Flash Zapata ier, 05/30/2025 08:00:00 AM, [address] [place] [address], [address], [phone], Provider Name:Flash braden, 06/06/2025 01:00:00 PM, [address] [place] [address], [address], [phone], Progress Notes * Armando SIBLEY:1960 ( 64 yo F)Acc No.[id number]:08/23/2024 Patient:?Kelsi Sibley :1960???Age:64 Y???Sex:Female Address:[address] [place] [phone] * true * Date:? Generated for Aleai kimberly/Nereida/eTransmitting on:?11/17/2024 07:10 AM EDT
--- OUTSIDE RECORDS SUMMARY | 2024-11-17 07:10 | XMS_ITS ---
Author Organization Flash Leslie MD Address [address] [place] [phone] Care Team Providers Care Engine Room Operator Name Role Phone Flash Leslie Primary Care Provider REASON FOR VISIT fasting lipids Encounters Encounter Location Date Provider Diagnosis Flash Leslie MD [address] [place] [phone] 11/13/2024 Flash Leslie Pure hypercholestero lemia E78.00 Assessments Encounter Date Diagnosis (ICD Code) Assessment Notes Treatment Notes Treatment Clinical Notes Section Notes 11/13/2024 Pure hypercholesterolemia (ICD-10 - E78.00) Plan Of Treatment Pending Test Test Name Order Date Liver Panel 11/13/2024 Lipid Panel with Reflex 11/13/2024 Next Appt Details Provider Name:Flash braden, 11/20/2024 01:45:00 PM, [address] [place] [address], [address] [place] [address], [phone], Provider Name:Flash braden, 05/30/2025 08:00:00 AM, [address] [facility], [address], [phone], Provider Name:Flash Zapata ier, 06/06/2025 01:00:00 PM, [address], [address], [place], [phone], Progress Notes * Kiesha SIBLEYeDOB:1960 ( 64 yo F)Acc No.[id number]:11/13/2024 Progress Note Patient:?Kelsi SIBLEY Provider:?Flash Leslie MD :1960???Age:64 Y???Sex:Female D ate:11/13/2024 Address:[address] [place] [address] [facility] [phone] Subjective: * Chief Complaints: * ???1. Fasting lipids. * Medical History:? Objective: * Vitals:? Assessment: * Assessment: 1.?Pure hypercholesterolemia - E78.00 (Primary)??? Plan: * Treatment: * * The named appointment provid er may or may not be the originator of this progress note, and it is not deemed complete until electronically signed by the appointment provider. Sign off status: Pending * Provider:?Flash Leslie MD Date:?0 11/13/2024 Generated for Nohemi harris/Nereida/Manojsmitting on:?11/17/2024 07:09 AM EDT
--- OUTSIDE RECORDS SUMMARY | 2024-11-17 07:11 | XMS_ITS | Data Portability ---
Author Organization [place] - [facility], [facility] Address [address] [place] [address] Care Team Providers Care Deputy Building Guard Name Role Phone COTY FUENTES Plant Sciences Professor [phone] Assessment No assessment recorded. Plan of Treatment Reminders Order Date Submit Date Provider Last Modified By Organization Details Last Modified Time Details Appointments NEW PATIENT 10 2024 02:50P Durga Biggs MD Not available Not available Not available Lab None recorded. Referral physical therapist referral - General non-impac t strengthe abel and flexibili ty program with proprioce ptive training. 2023 024 [facility], [address] [place] [address], [id number], 01/20/2024 08:37:47 Procedures None recorded. Surgeries None recorded. Imaging None recorded. Medication Orders None recorded. Patient TargetsNo targets recorded. Patient InstructionsNo instructions recorded. Reason for Referral Physical Therapist Referral for Osteoarthritis of right knee joint General non-impact strengthening and flexibility program with proprioceptive training. Referring Physician: Joe Biggs, Orthopedic Surgery, [id number] Encounter Date: 12/22/2023 Problems Name Problem SNOMED Code Status Onset Date Resolution Date Notes Provider Name and Address Organization Details Recorded Time Osteoarthri tis of right knee joint [id number] 00 Active 2023 TAMMY baker [place] - [facility] 09:49:39 Problem Notes None recorded. Medical Equipment None Reported. Medications Name Sig Start Date Stop Date Status Note LastModified by Organization Details LastModified Time amoxicillin 500 mg capsule TAKE 1 CAPSULE BY MOUTH THREE TIMES DAILY UNTIL GONE active Not Available Not Available N ot Available atorvastatin 20 mg tablet TAKE 1 TABLET BY MOUTH EVERY DAY active Not Available Not Available No t Available ibuprofen 800 mg tablet TAKE 1 TABLET BY MOUTH THREE TIMES DAILY FOR PAIN OR SWELLING NEEDED active Not Available Not Available No t Available olanzapine 2.5 mg tablet TAKE 1 TABLET BY MOUTH EVERY EVENING AT BEDTIME active Not Available Not Available No t Available tramadol 50 mg tablet TAKE 1 TABLET BY MOUTH TWICE DAILY NEEDED FOR PAIN active Not Available Not Available No t Available amoxicillin 875 mg tablet TAKE 1 TABLET BY MOUTH TWICE DAILY TIL FINISHED active Not Available Not Available No t Available pseudoephedri ne-guaifenesi n ER 80-700 mg tablet,extend ed release as directed 1 to 2 tablets q 8hrs prn pain 2016 active Statu s: 'Curr ent'; Not Available Not Available Not Available ibuprofen 600 mg tablet TAKE 1 TABLET BY MOUTH EVERY 6 HOURS NEEDED FOR PAIN active Not Available Not Available No t Available naproxen 500 mg tablet TAKE 1 TABLET BY MOUTH TWICE DAILY NEEDED FOR PAIN active Not Available Not Available No t Available oxycodone 5 mg tablet TAKE 1 TABLET BY MOUTH EVERY 4 HOURS NEEDED FOR PAIN active Not Available Not Available No t Available cyclobenzapri ne 5 mg tablet TAKE 1 TABLET BY MOUTH AT BEDTIME NEEDED FOR MUSCLE SPASM. DO NOT DRIVE OR OPERATE MACHINERY FOR 8 HOURS AFTER TAKING THIS MEDICINE active Not Available Not Available No t Available Vitals Date Recorded Body height Body mass index (BMI) Body weight Provider Name and Address Organization Details Last Updated DateTime 12/22/2023 144.78 cm 29.2 kg/m2 29385.97 g [facility] 12/22/2023 09:48:01 Social History None recorded. Functional Status None recorded. Mental Status None recorded. Family History Nothing Reported. Medical History No medical history recorded. Gynecological HistoryNo gynecological history recorded. Obstetrics History GPAL:G 0 P 0 0 0 0 Past Encounters Encounter ID Performer Location Encounter Start Date Encounter Closed Date Diagnosis/Indication Diagnosis SNOMED-CT Code Diagnosis ICD10 Code Diagnosis Note [id number] MD [facility] [address] [place] [address] 12/22/2023 09:23:38 01/12/2024 15:43:37 Osteoarthritis of right knee joint [id number] 64181 M17.11 Health Concerns Section Related Observation LastModified by Organization Lamar srivastava LastModified Time None Recorded Concern Status LastModified by Organization Details LastModified Time None Recorded Advance Directives Directive None Recorded Payers Encounter Date Sequence Insurance Name Policy Number Policy Dexter Covered Member ID Dexter Member ID Guarantor Name 12/22/2023 [facility] Kelsi Landis Notes Date Note Type Note Provider Name and Address Organization Details Recorded Time 12/22/2023 text/html Patient Visit NotePatient presents today for evaluation of her right knee. 63-year-old female here today for Worker's Compensation claim. Date of injury 06/25/2023. History Rekha has had increasing right knee pain as of late without injury. Continues to work normal work environment. Status post prior arthroscopy. Relates that around the time of treatment she received an intra-articular corticosteroid injection with negative reaction, not likely an allergy but likely anxiety driven reaction. Did have a very positive response to a Visco supplementation injection at that time. Has not required treatment since 2017.PFMSH and ROS has been reviewed, updated, and signed by me and is located in the patient's chart.Status post right knee arthroscopy 2017 at that time had partial medial meniscectomy in the face of early medial compartment space osteoarthropathy.On physical examination well-appearing woman in no acute distress alert and oriented ? ? 3 . Pleasant affect. Mildly antalgic gait to the right.Right kneeLacks 3-5? ? ? to full extension. Flexes to 130. Stable to both AP and varus valgus stress. Mild varus malalignment. Moderate patellofemoral pain with palpation. Moderate medial joint line pain with palpation. Negative Gunnar's maneuver to both compartments. Intact ACL PCL MCL LCL. No Quezada's cyst. Calf supple. No instability.Left kneeROM full. Stability intact both anterior, posterior and varus/valgus stress at both 0 and 30 degrees of flexion. No medial nor lateral meniscal tenderness. Negative Gunnar's maneuver. No crepitus, no effusion, 5/5 strength.Intact ACL PCL MCL LCL. No notable varicosities. No Quezada's cyst is appreciated. Straight leg raise. No sciatic nerve irritability.HEENT is unremarkable without carotid bruits or JVD.Heart regular rate and rhythm without murmurs rubs or gallops.Abdomen soft nontender nondistended positive bowel sounds.Lungs are clear bilaterally without rales rhonchi or wheezes.Patient is neurovascularly intact in both upper and lower extremities.No evidence for significant varicosities or active DVT at this time.Skin is intact to light touch and normal deep tendon reflexes.X-RAY REPORT: X-rays were ordered, obtained and reviewed today at [facility], 4 weightbearing views obtained* moderate medial and patellofemoral osteoarthropathy right knee. Medial compartment space right knee 1 mm. Patellofemoral compartment likely grade 4 changes. Lateral compartment better maintained.ImpressionP rogressive osteoarthropathy RIGHT knee particularly affecting the medial compartment after prior partial medial meniscectomy. Patient is a candidate for total joint arthroplasty but does not want to move in that direction at this time. Prior positive response to viscose supplementation and questionable negative reaction to cortisone warrants repeat viscose supplementation. No work restrictions were asked for her given at today's visit. We will obtain approval for gel 1 viscose supplementation which if positive can be repeated every 6 months. Joe Biggs MD [address] [facility] [address], [place], [address], [facility] 12/22/2023 11:22:29 OBGyn Episode No OBEpisode recorded.
[2024-11-17 08:33] LABS: Alanine Aminotransferase 23 U/L (0-31); Albumin Level 3.9 g/dL (3.5-5.0); Alkaline Phosphatase 85 U/L (39-117); Aspartate Amino Transferase 20 U/L (5-31); Bilirubin Direct 0.2 mg/dL (0.0-0.5); Bilirubin Total 0.6 mg/dL (0.0-1.0); Cholesterol 201 mg/dL (<200); HDL Cholesterol 44 mg/dL (>40); LDL Cholesterol Calculated 117 mg/dL (<100); Total Protein 7.5 g/dL (6.5-8.0); Triglycerides 201 mg/dL (<150)
[2024-11-17 10:52] LABS: Reflex LDLD? No
== END 2024-11-17 07:07 | disposition home or self-care (01) ==
LOC: HO.LAB 07:06
PROVIDERS: PCP Internal Medicine; Visit Provider Internal Medicine
DX: E78.00 Pure hypercholesterolemia, unspecified (principal)
CPT/HCPCS: 36415; 80061; 80076

== ENCOUNTER 2025-01-25 09:11 | Day surgery (SDC) | payer BC, SELFPAY ==
--- OUTSIDE RECORDS SUMMARY | 2025-01-15 12:58 | XMS_ITS ---
Author Organization Flash Leslie MD Address [address] [place], [place] [phone] Care Team Providers Care Home Theater Expert Name Role Phone Flash Leslie Primary Care Provider [phone] Results Component Value Reference Range Notes Liver Panel Reviewed date:11/18/2024 05:18:41 PM Interpretation: Performing Lab:[facility], [address] [place] [phone] Notes/Report: Bilirubin Total 0.6 0.0-1.0 mg/dL Bilirubin Direct 0.2 0.0-0.5 mg/dL Aspartate Amino Transferase 20 5-31 U/L Alanine Aminotransferase 23 0-31 U/L Total Protein 7.5 6.5-8.0 g/dL Albumin Level 3.9 3.5-5.0 g/dL Alkaline Phosphatase 85 39-117 U/L Lipid Panel with Reflex Reviewed date:11/18/2024 05:18:06 PM Interpretation: Performing Lab:[facility], [address] [place] [phone] Notes/Report: Triglycerides 201 <150 mg/dL Desirable Triglyceride: [...] Location Date Provider Diagnosis Flash Leslie MD [address] [place] [address] [place] [id number] 11/13/2024 Flash Leslie Pure hypercholestero lemia E78.00 Assessments Encounter Date Diagnosis (ICD Code) Assessment Notes Treatment Notes Treatment Clinical Notes Section Notes 11/13/2024 Pure hypercholesterolemia (ICD-10 - E78.00) Plan Of Treatment Next Appt Details Provider Name:Flash Zapata ier, 05/30/2025 08:00:00 AM, [address] [place] [address], Suite [facility], [place], [place], [phone], Provider Name:Flash Zapata ier, 06/06/2025 01:00:00 PM, [address] [place] [address], [place] [address], [place], [place], [phone], Progress Notes * Porsche SIBLEYOB:1960 ( 64 yo F)Acc No.[id number]:11/13/2024 Progress Note Patient:?SENTHILFabby BALBUENAyce Provider:?Flash Leslie MD :1960???Age:64 Y???Sex:Female D ate:11/13/2024 Address:[address] [place], [place] [phone] Subjective: * Chief Complaints: * ???1. Fasting [...] Leslie MD Date:?0 11/13/2024 Generated for Nohemi harris/Nereida/Ronnie on:?01/15/2025 12:58 PM EDT
--- OUTSIDE RECORDS SUMMARY | 2025-01-15 12:58 | XMS_ITS ---
Author Organization Flash Leslie MD Address [address] [place], [place] [phone] Care Team Providers Care Web Design Intern Name Role Phone Flash Lselie Primary Care Provider Allergies No Known Allergies [...] Flash Leslie MD [address] [place], [place] [phone] 11/20/2024 Flash Leslie New onset type 2 [...] Reason: Provider Name:Flash braden, 05/30/2025 08:00:00 AM, [address] [place] [address] Drive, [address], [place], [place], [phone], Provider Name:Flash braden, 06/06/2025 01:00:00 PM, [address] [place] [address], [address], [place], [place], [phone], Progress Notes * Armando SIBLEY:1960 ( 64 yo F)Acc No.[id number]:11/20/2024 Progress Notes Patient:?Kelsi SIBLEY Provider:?Flash Leslie MD :1960???Age:64 Y???Sex:Female D ate:11/20/2024 Address:[address] [place], [place] [phone] Subjective: * Chief Complaints: * ???6 month/ discuss hpv shot Patient has not taken BP meds x 1 week * HPI: ???Symptom(s):?Patient is a 64 yo female here for 6 month follow up visit, wondering about hpv vaccine/ having trouble getting her bp meds from [facility]. * ROS:?General/Constitutional:?Denies?Chills.?Denies?Fatigue.?Denies?Fever.?Denies?Headache.?ENT:?Denies?Sore throat.?Respiratory:?Denies?Cough.?Denies?Shortness of breath at rest.?Denies?Shortness of breath with exertion.?Cardiovascular:?Denies?Chest pain at rest.?Denies?Chest pain with exertion.?Denies?Dizziness.?Denies?Palpitations.?Denies?Shortness of breath.?Gastrointestinal:?Denies?Diarrhea.?Denies?Nausea.? * Medical History:? * Surgical History:? * Hospitalization/Major Diagno stic Procedure:? * Medications:?TakingFreeStyle Lite Test - Strip as directed In [...] reviewed and reconciled with the patient * Allergies:?N.K.D.A.yes[Aller gies Verified] Objective: * Vitals:?Ht: 57, Wt: 160, BMI :34.62, BP:182/80, Repeat BP:150/80, Wt-k.58. weight is up 2 pounds since 07-23-24. * ???Past Orders: ???Lab:Lipid Panel with Refl ex (Order Date - 11/13/2024) (Collection Date & Time - 11/17/2024 07:17 AM) ? Value Reference Range ?Triglycerides 201 H <150 - mg/dL ?Cholesterol 201 H <200 - m g/dL ?LDL Cholesterol Calculated 117 H <100 - mg/dL ?HDL Cholesterol 44 >40 - mg/dL ???Lab:Liver Panel (Order Da te - 11/13/2024) (Collection Date & Time - 11/17/2024 07:17 AM) ? Value Reference Range ?Bilirubin Total 0.6 0.0- 1.0 - mg/dL ?Bilirubin Direct 0.2 0.0 -0.5 - mg/dL ?Aspartate Amino Transferase 20 5-31 - U/L ?Alanine Aminotransferase 23 0-31 - U/L ?Total Protein 7.5 6.5-8. 0 - g/dL ?Albumin Level 3.9 3.5-5. 0 - g/dL ?Alkaline Phosphatase 85 39-117 - U/L * Examination: ???General Examination: ?GENERAL APPEARANCE:?pleasant, well nourished, well developed, in no acute distress.?HEAD:?normocephalic.?SKIN:?good turgor.?HEART:?no murmurs, rubs, gallops, regular rate and rhythm.?LUNGS:?no wheezes, rales, rhonchi, good air movement, clear to auscultation bilaterally.? Assessment: * Assessment: 1.?New onset type 2 diabetes mellitus - E11.9 (Primary)???2.?Essential hypertension - I10???3.?Wart of hand - B07.9??? Plan: * Treatment: 2.?Essential hypertension? Refill Valsartan-hydroCHLOROthiazide Tablet, 160-12.5 MG, 1 tablet, Orally, Once a day, 30 days, 90, Refills 3.?? Notes: is not doing badly since she is not on her meds for one week?? 3.?Wart of hand? Notes: discussed whether hpv vaccine helps and i could not find anything?? * Procedure Codes:? * Follow Up:?4 Weeks * * Sign off status: Completed true * Provider:?Flash Leslie MD Date:?0 11/20/2024 Generated for Nohemi harris/Nereida/Zayitting on:?01/15/2025 12:58 PM EDT History and Physical Notes * [...]
--- OUTSIDE RECORDS SUMMARY | 2025-01-15 12:58 | XMS_ITS ---
Author Organization Flash Leslie MD Address [address] [place], [place] [phone] Care Team Providers Care Airport Ramp Agent Name Role Phone Flash Leslie Primary Care [...] Location Date Provider Diagnosis Flash Leslie MD [address] [place] [address] [address] [place], [place] [phone] 01/07/2025 Flash Leslie New onset type 2 diabetes mellitus E11.9 Assessments Encounter Date Diagnosis (ICD Code) Assessment Notes Treatment Notes Treatment Clinical Notes Section Notes 01/07/2025 New onset type 2 diabetes mellitus (ICD-10 - E11.9) Plan Of Treatment Pending Test Test Name Order Date Hemoglobin A1c 01/07/2025 Glucose, finger stick 01/07/2025 Next Appt Details Provider Name:Flash braden, 05/30/2025 08:00:00 AM, [address] [place] [address], Suite [facility], [place], [place], [phone], Provider Name:Flash braden, 06/06/2025 01:00:00 PM, [address] [place] [address], [place] [address], [place], [place], [phone], Progress Notes * Porsche SIBLEYOB:1960 ( 64 yo F)Acc No.[id number]:01/07/2025 Progress Notes Patient:?Kelsi SIBLEY Provider:?Flash Leslie MD :1960???Age:64 Y???Sex:Female D ate:01/07/2025 Address:[address] [place], [place] [phone] Subjective: * Chief Complaints: * ???1. 4 week. * HPI: ???Symptom(s):? patient is a 64 yo female here for 4 week follow up visit. * ROS:?General/Constitutional:?Denies?Chills.?Denies?Fatigue.?Denies?Fever.?Denies?Headache.?ENT:?Denies?Sore throat.?Respiratory:?Denies?Cough.?Denies?Shortness of breath at rest.?Denies?Shortness of breath with exertion.?Gastrointestinal:?Denies?Diarrhea.?Denies?Nausea.? * Medical History:?01/29/2014 - colonoscopy due in 5 year; Colonoscopy done 09/20/[address] Lawson - repeat 5 years, Hematuria work up in past, Had admission to [facility] and work up with mri mrvenogram,ct all [id number]. felt byu neuro to be a migraine, [...] Twice a day * Allergies:?N.K.D.A. Objective: * Vitals:? Assessment: * Assessment: 1.?New onset type 2 diabetes mellitus - E11.9 (Primary)??? Plan: * Treatment: * Procedure Codes:?32303 ASSAY , GLUCOSE, BLOOD QUANT, Modifiers: QW , 32624 GLYCATED HEMOGLOBIN TEST, Modifiers: QW * * The named appointment provid er may or may not be the originator of this progress note, and it is not deemed complete until electronically signed by the appointment provider. Sign off status: Pending * Provider:?Flash Leslie MD Date:?0 01/07/2025 Generated for Nohemi harris/Nereida/Manojsmitting on:?01/15/2025 12:58 PM EDT History and Physical Notes * HPI (History of Present Illness) Category Sub-Category Detail Notes Category Not es Symptom(s) patient is a 64 yo female here for 4 week follow up visit
--- OUTSIDE RECORDS SUMMARY | 2025-01-15 12:59 | XMS_ITS ---
Author Organization [facility] Address [address] [place] [address] Care Team Providers Care Window Shade Ring Coverer Name Role Phone Flash Leslie MD Primary Care Provider Rohini Frank [phone] REASON FOR VISIT insurance id numbers/ updated Encounters Encounter Location Date Provider Diagnosis [facility] [address] [facility] [address] [place] [phone] 08/20/2024 Rohini Lawson Plan Of Treatment Next Appt Details Provider Name:Rohini Lawson , 01/25/2025 10:30:00 AM, [address] [place] [address] , [place], [place], [phone], Progress Notes * MARTINE SIBLEYOB:1960 ( 64 yo F)Acc No.[id number]:08/20/2024 Patient:?GINNY SIBLEY :1960???Age:64 Y???Sex:Female Address:[address] [place] [id number] * true * Date:? Generated for Printi kimberly/Nereida/eTransmitting on:?01/15/2025 12:58 PM EDT
--- OUTSIDE RECORDS SUMMARY | 2025-01-15 12:59 | XMS_ITS | Patient Health Record ---
Author Organization [facility] Address [address] [place] [address] Care Team Providers Care Butcherette Name Role Phone Flash Acevedo MD Primary Care Provider Rohini Frank Unavailable [phone] Reason For Referral Referring Provider First Name Flash Referring Provider Last Name Mariama Referring Provider Speciality Internal M edicine Referred Organization [facility] Referred Provider Rohini Lawson Referred Address [address] [place] [address],[address],[place], [place],[address],[place] Referred Provider Specialty Gastroentero logy General Notes [...] Problem Status W/U Status Risk Notes Problem 973126369 Encounter for screening for malignant neoplasm of colon (Z12.11) Active confirmed Problem 550109430868551 Preprocedural examination (Z01.818) Active confirmed Problem 880626674 Gastroesophageal reflux disease, esophagitis presence not specified (K21.9) Active confirmed Problem 045447153 Hx of adenomatou s colonic polyps (Z86.010) Active confirmed Vital Signs Temperature 97.5 degrees Fahrenheit 10/10/2024 Blood pressure diastolic 00 mm Hg 10/10/2024 Height 58 in 10/10/2024 Blood pressure systolic 00 mm Hg 10/10/2024 Weight 158 lb 2 oz lbs 10/10/2024 BMI 33.04 kg/m2 10/10/2024 Encounters Encounter Location Date Provider Diagnosis [facility] [address] [place] [address] 10/10/2024 Rohini Lawson Hx of adenomatous colonic polyps Z86.010 ; Preprocedural examination Z01.818 and Encounter for screening for malignant neoplasm of colon Z12.11 [facility] [address] [place] [phone] 08/20/2024 Rohini Lawson Assessments Encounter Date Diagnosis [...] Provider Name:Rohini Lawson , 01/25/2025 10:30:00 AM, [address] [place] [address] , [place], [place], [id number], Insurance Providers Payer Name Payer Address Payer Phone Subscriber Number Group Number Insured Name Patient Relationship to Insured Coverage Start Date Coverage End Date [facility] [employer] PROFESSIONAL CLAIMS [address] [place] [address] [id number] KELSI SIBLEY Self - patient is the insured Medical (General) History Medical History History ICD Code Hyperlipidemia Denies SD,CVA,Lung disease,renal disease HTN Neg colonoscopy in 02/2003 except for int ernal hemorrhoids Colonoscopy in 01/2014 with a small tubul ar adenima removed Negative colonoscopy in 09/2019 Diet-controlled diabetes Surgical History Surgery Date(Month/Year) Lumpectomy, right breast--bi opsies neg for breast cancer, but sees Dr. Martinez and Dr. Sidney Wiseman at [facility] and was on Tamoxifen 06/2013 Breast reduction Meniscus tear right knee Retinal detachment right eye with laser surgery-successful Trigger fingers on right hand
--- OUTSIDE RECORDS SUMMARY | 2025-01-15 12:59 | XMS_ITS | Clinical Summary ---
Author Organization [facility] Address [address] [place] [address] Care Team Providers Care Director Of Family Service Center Name Role Phone Flash Leslie MD Primary Care Provider [phone] Allergies No known active allergies Medications Medication [...] age to complete this topic Care Teams Director Of Family Service Center Relationship Specialty Start Date End Date Flash Leslie MD [address] [place] [phone] PCP - General Internal Medicine 03/18/17
--- OUTSIDE RECORDS SUMMARY | 2025-01-15 12:59 | XMS_ITS ---
Author Organization [facility] Address [address] [place] [address] Care Team Providers Care Fuel Yard Operator Name Role Phone Flash Leslie MD Primary Care Provider Rohini Frank Unavailable [phone] REASON FOR VISIT Patient presents today for [...] 10/10/2024 Encounters Encounter Location Date Provider Diagnosis [facility] [address] [facility] [address] [place] [phone] 10/10/2024 Rohini Lawson Hx of adenomatous colonic [...] Provider Name:Rohini Lawson , 01/25/2025 10:30:00 AM, [address] [place] [address] , [place], [place], [phone], Progress Notes * ROXANE SIBLEYEDOB:1960 ( 64 yo F)Acc No.[id number]:10/10/2024 Progress Notes Patient:?KELSI SIBLEY Provider:?Rohini Lawson MD :1960???Age:64 Y???Sex:Female D ate:10/10/2024 Address:[address] [place], [place] [phone] Pcp:Flash Leslie MD Subjective: * Chief Complaints: [...] Dr. Martinez and Dr. Sidney Wiseman at [facility] and was on Tamoxifen reast reduction [...] Screen?Points: 0, Interpretation: Negative.?Miscellaneous:?Marital status: . 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 ???Nonsmoker; no sig alcohol. * Medications:?TakingAtorvasta tin [...] Procedure Codes:?3017F COLOR ECTAL CA SCREEN DOC [id number] TOBACCO NON-[id number] BP SCR NOT PRFRM REC REASON NOS * Preventive Medicine:? ??Counseling:?Care goal follow-up plan:?Above Normal BMI Follow-up?Giving encouragement to exercise,?BMI management provided?Yes.? * Follow Up:?prn * * Sign off status: Completed true * Provider:?Rohini Lawson MD Date:? 025 Generated for Nohemi harris/Nereida/Ronnie on:?01/15/2025 12:58 PM EDT History and Physical [...]
--- OUTSIDE RECORDS SUMMARY | 2025-01-15 12:59 | XMS_ITS | Patient Health Record ---
Author Organization Flash Leslie MD Address [address] [place], [place] [phone] Care Team Providers Care Special Needs Babysitter Name Role Phone Flash Leslie Primary Care Provider [phone] Allergies No Known Allergies Results Component Value Reference Range Notes Hemoglobin A1c Reviewed date:07/23/2024 01:48:47 PM Interpretation: Performing Lab: Notes/Report: Hemoglobin A1c 7.5 Glucose, finger stick Reviewed date:07/23/2024 01:42:04 PM Interpretation: Performing Lab: Notes/Report: Value 102 Complete Blood Count Auto Di ff Reviewed date:05/28/2024 12:56:51 PM Interpretation: Performing Lab:[facility], [address] [place] [phone] Notes/Report: White Blood Count 8.8 4.8-10.8 X10*3/uL Red Blood Count 4.64 4.20-5.50 X10*6/uL Hemoglobin 13.8 12.0-16.0 g/dl Hematocrit 41.1 37.0-47.0 % Mean Corpuscular Volume 88.6 80.0-98.0 fL Mean Corpuscular Hemoglobin 29.7 27.0-33.0 pg Mean Corpuscular HGB Conc 33.6 31.0-35.0 g/dl Red Cell Distribution Width 12.8 11.0-16.0 % Platelet Count 297 160-400 X10*3/uL Mean Platelet Volume 9.9 9.4-12.3 fL Neutrophils Percent Auto 54.6 45-73 % Imm Gran Pct Auto 0.3 0.0-0.4 % Lymphocytes Percent Auto 36.0 20-40 % Monocytes Percent Auto 6.3 2-11 % Eosinophils Percent Auto 2.0 0-4 % Basophils Percent Auto 0.8 0-2 % NRBC Pct Auto 0.0 0.0-0.2 /100WBC Neutrophils Absolute Auto 4.8 2.0-8.3 x10*3/u L Imm Gran Abs Auto 0.03 0.00-0.03 X10*3/uL Lymphocytes Absolute Auto 3.2 1.2-4.9 X10*3/u L Monocytes Absolute Auto 0.6 0.1-1.2 X10*3/uL Eosinophils Absolute Auto 0.2 0.0-0.4 X10*3/u L Basophils Absolute Auto 0.1 0.0-0.2 X10*3/uL NRBC Abs Auto 0.000 0.0-0.012 X10*3/uL Comprehensive [place]. Panel Fa st Reviewed date:05/28/2024 12:56:29 PM Interpretation: Performing Lab:[facility], [address] [place] [phone] Notes/Report: Sodium 143 135-145 mmol/L Potassium 4.0 3.3-5.1 mmol/L Chloride 108 96-108 mmol/L Carbon Dioxide 26 22-29 mmol/L Anion Gap 13 12-20 Blood Urea Nitrogen 12 9-16 mg/dL Creatinine 0.84 0.5-1.4 mg/dL Estimated Glomerular Filt Rate > 60 NOTE: For -Tajik individuals, multiply the result by 1.210. Chronic Kidney Disease: Estimated GFR < 60 mL/min/1.73m2 Severe Kidney Disease: Estimated GFR < 15 mL/min/1.73m2 Glucose Fasting 140 60-99 mg/dL A fasting glucose of 126 mg/dl or greater on more than one occasion is considered diagnostic of diabetes. Calcium 9.1 8.4-10.2 mg/dL Bilirubin Total 0.8 0.0-1.0 mg/dL Aspartate Amino Transferase 14 5-31 U/L Alanine Aminotransferase 13 0-31 U/L Total Protein 7.7 6.5-8.0 g/dL Albumin Level 4.1 3.5-5.0 g/dL Alkaline Phosphatase 87 39-117 U/L Lipid Panel Reviewed date:05/27/2024 04:19:09 PM Interpretation: Performing Lab:[address] [address] Notes/Report: Triglycerides 210 <150 mg/dL Desirable Triglyceride: less than 150 mg/dL Borderline High Triglyceride 150-199 mg/dL High Triglyceride: 200-499 mg/dL Very High Triglyceride: greater than or equal to 5OO mg/dL Cholesterol 273 <200 mg/dL Desirable Cholesterol: less than 200 mg/dL Borderline High Cholesterol: 200-239 mg/dL High Cholesterol: greater than 239 mg/dL LDL Cholesterol Calculated 186 <100 mg/dL Desirable LDL: less than 100 mg/dL Near Optimal/Above Optimal LDL: 110-129 mg/dL Borderline High LDL: 130-159 mg/dL High LDL: 160-189 mg/dL Very High LDL: greater than or equal to 190 mg/dL HDL Cholesterol 45 >40 mg/dL Desirable HDL: greater than 40 mg/dL Note: This HDL assay may give artificially low results in patients with liver disease. Vitamin D 25-OH Total Reviewed date:05/27/2024 04:18:57 PM Interpretation: Performing Lab:[address] [address] Notes/Report: Vitamin D 25-OH Total 22.6 >30 ng/mL Health Based Reference Values* < 20 ng/mL Deficient 20-30 ng/mL Insufficient > 30 ng/mL Sufficient *Jonas JORDAN. N Engl J Med. 2007;357:266-280 Care must be taken in interpreting Vitamin D results from different laboratories and methodologies. Published data demonstrated that results from patients undergoing hemodialysis may show a negative bias when tested with various automated 25-OH vitamin D assays when compared to LC-MS/MS. When testing samples from patients whose predominant form of Vitamin D is Vitamin D2, such as patients receiving Vitamin D2 supplementation, results that are subtherapeutic should be confirmed with another method such as LC-MS/MS. Microalbumin, Random Reviewed date:05/27/2024 04:18:44 PM Interpretation: Performing Lab:[facility], [address] [place] [phone] Notes/Report: Creatinine Urine 101.26 Microalbumin Urine 57.0 Microalbum/Creatinine Ratio Ur 56.2 <30 ug/mg cr Albumin/Creatinine Ratio Reference Ranges: Normal: < 30 ug/mg creatinine Microalbuminuria: 30 - 300 ug/mg creatinine Clinical Albuminuria: > 300 ug/mg creatinine Hemoglobin A1c Reviewed date:05/27/2024 04:19:18 PM Interpretation: Performing Lab:[address] [address] Notes/Report: Hemoglobin A1c % 6.4 <6.0 % Hemoglobin A1C Reference Range Adults: 4.8 - 6.0 % Non diabetic: < 6.0 % Goal: < 7.0 % Additional Action Suggested: > 8.0 % Note: Hemoglobin A1c results are invalid for patients with abnormal amounts of HbF. Blood transfusions may impact the HbA1c concentration in the patient sample. Estimated Average Glucose 137 eAG = Estimated average glucose which is %A1C expressed as average glucose, using the formula of the D9X-Cvpmmzm Average Glucose study (ADAG), Diabetes Care, Vol.31,#8, Apr. 2007 UA ClnCatch+Micro w/rflx Cul t Reviewed date:05/28/2024 12:57:32 PM Interpretation: Performing Lab:[address] [address] Notes/Report: Urine, Clean Catch Color Urine Yellow Appearance Urine Clear PH 7.5 5.0-9.0 Glucose Urine UA Negative Negative mg/dL Urine Blood Negative Negative Specific [place] - Urine 1.015 1.005-1.025 Urine Protein Trace Neg-Trace mg/dL Urine Ketones Negative Negative mg/dL Nitrite Urine Negative Negative Leukocyte Esterase Urine Trace Negative RBC Urine 0-2 0-2 /HPF WBC Urine 0-5 0-5 /HPF Squamous Epithelial Cell Urine 0-2 0-2 /HPF Bacteria Urine None Seen None Seen Hyaline Casts Urine 0-2 0-2 /LPF Reason For Referral No Information Medications Medication SIG (Take, Route, Frequency, Duration) Notes Start Date End Date Status Atorvastatin Calcium 20 MG 1 tablet Orally Once a day for 90 days 11/29/2022 Active Vitamin D3 1000 UNIT 1 tablet Orally Onc e a day 04/11/2018 Not-Taking Tylenol 325 MG 1 tablet as needed Orally every 6 hrs Not-Taking Lotrisone 1-0.05 % 1 application to affected area Externally Twice a day for 30 days 09/02/2011 Not-Taking Tamoxifen Citrate 20 MG 1 tablet Orally Once a day for 30 day(s) Not-Taking Ozempic (0.25 or 0.5 MG/DOSE) 2 MG/3ML as directed 0.25 mg Subcutaneous weekly for 30 days 11/20/2024 Active Valsartan-hydroCHLORO thiazide 160-12.5 MG 1 tablet Orally Once a day for 30 days 07/23/2024 Active FreeStyle Lite Test - as directed In Vit ro once a day for 30 days needs DX E11.9 08/26/2022 Active Immunizations Vaccine Route Administration Date Status Comme nts Flu Vaccine Unknown 06/24/2011 Administered Flu Vaccine Unknown 05/11/2012 Administered Fluarix Quadrivalent IM Intramuscular 05/20/2014 Administe red Flu Vaccine Unknown 06/22/2017 Administered pt was give n it a work. SARS-COV-2 Pfizer Unknown 12/19/2020 Administered SARS-COV-2 Pfizer Unknown 01/10/2021 Administered SARS-COV-2 Pfizer Unknown 08/20/2021 Administered Walgr [facility]'s Flu Vaccine Unknown 08/25/2015 Refused Fluarix Quadrivalent Unknown 05/17/2019 Refused Shingrix Unknown 05/26/2020 Refused Fluarix Quadrivalent Unknown 10/17/2020 Refused Fluarix Quadrivalent Unknown 05/28/2021 Refused Fluarix Quadrivalent Unknown 06/01/2022 Refused Fluarix Quadrivalent Unknown 06/03/2023 Refused Fluarix Quadrivalent - 150 Unknown 06/04/2024 Refused Flu Vaccine Unknown 05/20/2014 Pending Social History Tobacco Use: Social History Observation Description Date Details (start date - stop date) Never Smoker NA - NA Tobacco Use/Smoking Question Answer Notes Patient is a nonsmoker Additional Findings: Tobacco Non-User Cu rrent non-smoker, currently using no form of tobacco Alcohol Screen Question Answer Notes Did you have a drink containing alcohol in the p ast year? No Points 0 Interpretation Negative Problems Problem Type SNOMED Code ICD Code Onset Dates Problem Status W/U Status Risk Notes Problem 74082161 Vitamin D defici ency (E55.9) Active confirmed Problem 8412489 Primary insomnia (F51.01) Active confirmed Problem Abnormal findings on diagnostic imaging of breast (218265599) Other abnormal and inconclusive findings on diagnostic imaging of breast (R92.8) Active confirmed Problem 012775558 Tubular adenoma of colon (D12.6) Active confirmed Problem 02275027 Essential hypert ension (I10) Active confirmed Problem 835041378 Abnormal mammogr am (R92.8) Active confirmed Problem 06716179 Premenopausal pa tient (N95.9) Active confirmed Problem 533410556 Pure hypercholesterolemia (E78.00) Active confirmed Problem 510422836 Tension type hea dache, unspecified (G44.209) Active confirmed Problem 388978017 Sensorineural he aring loss (SNHL) of both ears (H90.3) Active confirmed Problem 20163072 New onset type 2 diabetes mellitus (E11.9) Active confirmed Problem 150765049519235 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 (Z86.000) Active confirmed Vital Signs Blood pressure diastolic 80 mm Hg 11/20/2024 sanjiv ght is up 2 pounds since 07-23-24 Height 57 in 11/20/2024 weight is up 2 pounds since 07-23-24 Blood pressure systolic 182 mm Hg 11/20/2024 weig ht is up 2 pounds since 07-23-24 Weight 160 lbs 11/20/2024 weight is up 2 pounds since 07-23-24 BMI 34.62 kg/m2 11/20/2024 weight is up 2 pounds since 07-23-24 Encounters Encounter Location Date Provider Diagnosis Flash Leslie MD [address] [place] [phone] 06/04/2024 Flash Leslie Pure hypercholestero lemia E78.00 ; Annual physical exam Z00.00 ; Periungual wart B07.8 ; New onset type 2 diabetes mellitus E11.9 ; Essential hypertension I10 and Depression screening Z13.31 Flash Leslie MD [address] [place] [id number] 07/23/2024 Flash Leslie New onset type 2 phuc betes mellitus E11.9 ; Other specified cough R05.8 and Adverse effect of txqlmnxqchf-igrggaguqc-ien yme inhibitors, initial encounter T46.4X5A Flash Leslie MD [address] [place] [address] Drive [address] [place] [id number] 11/20/2024 Flash Leslie New onset type 2 phuc betes mellitus E11.9 ; Essential hypertension I10 and Wart of hand B07.9 Flash Leslie MD [address] [place] [address] Drive [address] [place] [id number] 08/23/2024 Flash Leslie Assessments Encounter Date Diagnosis (ICD Code) Assessment Notes Treatment Notes Treatment Clinical Notes Section Notes 06/04/2024 Pure hypercholesterolemia (ICD-10 - E78.00) stable, will continue current regiment 06/04/2024 Annual physical exam (ICD-10 - Z00.00) labs reviewed and discussed with patient 07/23/2024 New onset type 2 diabetes mellitus (ICD-10 - E11.9) we discussed the elevated a1c and althoug she has lost some weight she still has a carb loaded diet although eating a smaller volume. i feel that if she maintains this improved diet we should see her sugars coming down. 07/23/2024 Other specified coug h (ICD-10 - R05.8) 11/20/2024 New onset type 2 diabetes mellitus (ICD-10 - E11.9) 11/20/2024 Essential hypertensi on (ICD-10 - I10) is not doing badly since she is not on her meds for one week 06/04/2024 Periungual wart (ICD -10 - B07.8) going to go back to dermatology/ patient will be making her own appt 07/23/2024 Adverse effect of midrmkfriwz-tayzhxgejb-n nzyme inhibitors, initial encounter (ICD-10 - T46.4X5A) she has the typical ira cough and although she says she can tolerate it there is no reason to and eventually it will be really annoying. 11/20/2024 Wart of hand (ICD-10 - B07.9) discussed whether hpv vaccine helps and i could not find anything 06/04/2024 New onset type 2 diabetes mellitus (ICD-10 - E11.9) needs to get back on diet., will continue to monitor 06/04/2024 Essential hypertensi on (ICD-10 - I10) stable, will continue current regiment 06/04/2024 Depression screening (ICD-10 - Z13.31) negative screen Plan Of Treatment Pending Test Test Name Order Date Electrocardiogram (EKG) 05/17/2019 MRI GUIDED BREAST BX 04/30/2013 US BREAST RIGHT 04/20/2013 MRI BREAST BILATERAL 04/06/2013 BONE DENSITY DEXA 10/02/2020 BONE DENSITY DEXA 08/04/2020 MAMMOGRAM DIGITAL BILATERAL SCREEN 08/04 MAMMOGRAM DIGITAL UNILATERAL PHUC LT 04/2021 Next Appt Details Provider Name:Flashsj Zapata ier, 05/30/2025 08:00:00 AM, [address] [place] [address], [address], [place], [place], [phone], Provider Name:Flashsj Chanmary ier, 06/06/2025 01:00:00 PM, [address] [place] [address], [address], [place], [place], [phone], Insurance Providers Payer Name Payer Address Payer Phone Subscriber Number Group Number Insured Name Patient Relationship to Insured Coverage Start Date Coverage End Date [employer] [address] [place], [place] [id number] Kelsi Landis Self - patient is the insured Medical (General) History Medical History History ICD Code 01/29/2014 - colonoscopy due in 5 year; Colonoscopy done 09/20/[address] Lawson - repeat 5 years hematuria work up in past had admission to [facility] and wo rk up with mri mrvenogram,ct all [id number]. felt byu neuro to be a migraine Concussion with loss of consciousness of unspecified duration
[2025-01-23 16:11] VITALS: BMI 33.0
--- NOTE | 2025-01-24 10:01 | P.CONAN_ITS ---
HPI - Anesthesia Eval Consult details Narrative: 64yo F for Colonoscopy PMFSH Active Problems Active Problems: All Active Problems Capillary hemangioma (Acute) Mass of finger of right hand (Acute) Numbness of right hand (Acute) Trigger finger, right ring finger (Acute) Trigger finger, right middle finger (Acute) Cubital tunnel syndrome on right (Acute) Right carpal tunnel syndrome (Acute) Past Medical History Medical History (Updated 01/24/25 @ 10:43 by Elina Sy RN) History of trigger finger Elevated cholesterol HTN (hypertension) Pre-diabetes Family History Family History (Updated 12/02/23 @ 14:18 by Gillian Viveros CNM) Mother Diabetes Father Cirrhosis HTN (hypertension) Paternal Uncle Heart attack Maternal Grandfather Cancer of kidney Sister Breast cancer, Onset Age: 27 Thyroid cancer Brother Skin cancer Surgical History Surgical History (Updated 01/25/25 @ 09:34 by Annita Michael RN) H/O hand surgery History of lumpectomy of right breast H/O colonoscopy Hx of eye surgery History of surgical removal of meniscus of knee Hx of bilateral breast reduction surgery Social History Social History (Updated 12/02/23 @ 13:47 by Cleo Colbert CMA) Household Members: Spouse Household Members Other:: son Housing: House Are you a primary point of care technician to a significant other at home: No Do you presently have visiting nurse or other home services: No Alcohol intake: current Alcohol intake frequency: does not drink Patient Tobacco Use Status: Never used Tobacco Use of substances other than those prescribed or required for medical reasons: No Have you been hit, kicked, punched, or otherwise hurt by someone within the past year? 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
[2025-01-25 09:25] VITALS: BP 158/59; PULSE 62; RESP 16; TEMP 36.5; O2SAT 98; BMI 32.2
[2025-01-25] MEDS: Lactated Ringers 1,000 ML 100 ML IVCONT (09:54)
--- NOTE | 2025-01-25 11:25 | P.BOP_ITS ---
Brief Operative Note Date of Service: 01/25/25 Pre-op diagnosis: Screening Post-op diagnosis: other (Diverticulosis) Procedure: Colonoscopy to the cecum and TI Surgeon: Carlos Lawson MD Anesthesia: MAC Was an Email Marketing Executive used for this Procedure?: No Estimated blood loss (mL): 0 Pathology: none sent Condition: stable Disposition: PACU
[2025-01-25 11:27] VITALS: BP 114/54; PULSE 63; RESP 12; TEMP 36.6; O2SAT 100
[2025-01-25 11:42] VITALS: BP 114/54; PULSE 62; RESP 16; TEMP 36.6; O2SAT 98
--- NOTE | 2025-01-25 21:46 | OP_ITS ---
DATE OF SERVICE: 01/25/2025 SURGEON: Carlos Lawson MD INDICATIONS: Patient presents for followup of personal history of tubular adenoma of the colon and colorectal cancer screening. Full consent was obtained from her for this, including risks of bleeding and perforation. PREOPERATIVE DIAGNOSIS: Colorectal cancer screening. POSTOPERATIVE DIAGNOSIS: Colorectal cancer screening, diverticulosis. PROCEDURE PERFORMED: Colonoscopy to cecum and terminal ileum. ESTIMATED BLOOD LOSS: COMPLICATIONS: ANESTHESIA: Monitored anesthesia care. ASSISTANTS: SPECIMENS: DESCRIPTION OF PROCEDURE: Patient was placed in the left lateral decubitus position. The digital rectal exam revealed no abnormalities. The Olympus video pediatric colonoscope was entered into the rectum and advanced easily to the cecum. Once in the cecum, I did identify a normal-appearing cecal pouch with appendiceal orifice and normal- appearing ileocecal valve. The terminal ileum was cannulated and appeared normal. Scope was withdrawn back in the colon. The entire cecum and ileocecal valve appeared normal. Scope was slowly withdrawn assessing all mucosal surfaces carefully. Preparation was excellent. I did not visualize any sign of polyps, colitis, nor angiodysplasia. There was a mild amount of sigmoid diverticulosis. In the rectum, scope was retroflexed, visualizing internal hemorrhoids, but no other pathology. The rectal mucosa appeared normal. Scope was straightened and withdrawn from the patient. She tolerated the procedure well and was returned to the recovery area in stable condition. IMPRESSION: 1. Diverticulosis. 2. Internal hemorrhoids. PLAN: I would recommend a repeat colonoscopy in 5 years for further screening given her previous history of a tubular adenoma. She will otherwise see me on a basis. MD SUJATHA Love/PREETIL / [phone] MTDSarah
== END 2025-01-25 12:12 | disposition home or self-care (01) ==
PROVIDERS: PCP Internal Medicine; Visit Provider Internal Medicine
PROC: 0DJD8ZZ Inspection of Lower Intestinal Tract, Via Natural or Artificial Opening Endoscopic (ICD-10-PCS; CPT 45378; principal; 2025-01-25 10:30)
DX: Z12.11 Encounter for screening for malignant neoplasm of colon (principal); K57.30 Diverticulosis of large intestine without perforation or abscess without bleeding; K64.8 Other hemorrhoids; Z86.0101 Personal history of adenomatous and serrated colon polyps; I10 Essential (primary) hypertension; E78.5 Hyperlipidemia, unspecified; Z79.02 Long term (current) use of antithrombotics/antiplatelets; Z79.899 Other long term (current) drug therapy
CPT/HCPCS: 45378; J2003; J2704

== ENCOUNTER 2025-05-02 14:53 | Outpatient (REF) | payer BC, SELFPAY | END 2025-05-02 14:54 | disposition home or self-care (01) | LOC: HO.LNP 14:53 | PROVIDERS: PCP Internal Medicine; Visit Provider Advanced Practice Midwife | DX: Z01.419 Encounter for gynecological examination (general) (routine) without abnormal findings (principal) | CPT/HCPCS: 87626; 88175 ==

== ENCOUNTER 2025-05-02 14:53 | Outpatient (AMB) | payer BC, SELFPAY ==
--- OUTSIDE RECORDS SUMMARY | 2024-11-13 03:45 | XMS_ITS ---
Author Organization Flash Leslie MD Address [address] [place], [place] [id number] Care Team Providers Care Long Term Care Administrator Name Role Phone Flash Leslie Primary Care Provider Results Component Value Reference Range Notes Liver Panel Reviewed date:11/18/2024 05:18:41 PM Interpretation: Performing Lab:[facility], [address] [place] [phone] Notes/Report: Bilirubin Total 0.6 0.0-1.0 mg/dL Bilirubin Direct 0.2 0.0-0.5 mg/dL Aspartate Amino Transferase 20 5-31 U/L Alanine Aminotransferase 23 0-31 U/L Total Protein 7.5 6.5-8.0 g/dL Albumin Level 3.9 3.5-5.0 g/dL Alkaline Phosphatase 85 39-117 U/L Lipid Panel with Reflex Reviewed date:11/18/2024 05:18:06 PM Interpretation: Performing Lab:[facility], [address] [place] [phone] Notes/Report: Triglycerides 201 <150 mg/dL Desirable Triglyceride: less than 150 mg/dL Borderline High Triglyceride 150-199 mg/dL High Triglyceride: 200-499 mg/dL Very High Triglyceride: greater than or equal to 5OO mg/dL Cholesterol 201 <200 mg/dL Desirable Cholesterol: less than 200 mg/dL Borderline High Cholesterol: 200-239 mg/dL High Cholesterol: greater than 239 mg/dL LDL Cholesterol Calculated 117 <100 mg/dL Desirable LDL: less than 100 mg/dL Near Optimal/Above Optimal LDL: 110-129 mg/dL Borderline High LDL: 130-159 mg/dL High LDL: 160-189 mg/dL Very High LDL: greater than or equal to 190 mg/dL HDL Cholesterol 44 >40 mg/dL Desirable HDL: greater than 40 mg/dL Note: This HDL assay may give artificially low results in patients with liver disease. REASON FOR VISIT fasting lipids Encounters Encounter Location Date Provider Diagnosis Flash Leslie MD [address] [place] [address] [place] [phone] 11/13/2024 Flash Leslie Pure hypercholestero lemia E78.00 Assessments Encounter Date Diagnosis (ICD Code) Assessment Notes Treatment Notes Treatment Clinical Notes Section Notes 11/13/2024 Pure hypercholesterolemia (ICD-10 - E78.00) Plan Of Treatment Next Appt Details Provider Name:Flash Chanmary ier, 05/30/2025 08:00:00 AM, [address] [place] [address], [address], [phone], Provider Name:Flash Chanmary ier, 06/06/2025 01:00:00 PM, [address] [place] [address], [place] [address], [place], [place], [phone], Progress Notes * Porsche SIBLEYOB:1960 ( 64 yo F)Acc No.[id number]:11/13/2024 Progress Note Patient: Kelsi FRIAS Provider: Sukumar Leslie MD :1960 A ge:64 Y S ex:Female Date:11/13/2024 Address:[address] [place], [place] [phone] Subjective: * Chief Complaints: * 1 . Fasting lipids. * Medical History: Objective: * Vitals: Assessment: * Assessment: 1. P ure hypercholesterolemia - E78.00 (Primary) Plan: * Treatment: * * The named appointment provid er may or may not be the originator of this progress note, and it is not deemed complete until electronically signed by the appointment provider. Sign off status: Pending * Provider: Sukumar Leslie MD Date: 0 11/13/2024 Generated for Nohemi harris/Nereida/Zayitting on: 0 05/02/2025 03:33 PM EDT
--- OUTSIDE RECORDS SUMMARY | 2024-11-20 09:45 | XMS_ITS ---
Author Organization Flash Leslie MD Address [address] [place], [place] [phone] Care Team Providers Care Oracle Financial Application Developer Name Role Phone Flash Leslie Primary Care Provider Allergies No Known Allergies REASON FOR VISIT 6 month/ discuss hpv shot, Patient has not taken BP meds x 1 week Medications Medication SIG (Take, Route, Frequency, Duration) Notes Start Date End Date Status FreeStyle Lite Test - as directed In Vit ro once a day for 30 days needs DX E11.9 08/26/2022 Active Atorvastatin Calcium 20 MG 1 tablet Orally Once a day for 90 days 11/29/2022 Active Valsartan-hydroCHLORO thiazide 160-12.5 MG 1 tablet Orally Once a day for 30 days 07/23/2024 Active Tamoxifen Citrate 20 MG 1 tablet Orally Once a day for 30 day(s) Not-Taking Lotrisone 1-0.05 % 1 application to affected area Externally Twice a day for 30 days 09/02/2011 Not-Taking Tylenol 325 MG 1 tablet as needed Orally every 6 hrs Not-Taking Ozempic (0.25 or 0.5 MG/DOSE) 2 MG/3ML as directed 0.25 mg Subcutaneous weekly for 30 days 11/20/2024 Active Vitamin D3 1000 UNIT 1 tablet Orally Onc e a day 04/11/2018 Not-Taking Vital Signs Blood pressure systolic 182 mm Hg 11/21/19 25 Blood pressure diastolic 80 mm Hg 025 Height 57 in 11/20/2024 Weight 160 lbs 11/20/2024 BMI 34.62 kg/m2 11/20/2024 weight is up 2 pounds since 07-23-24 Encounters Encounter Location Date Provider Diagnosis Flash Leslie MD [address] [place], [place] [phone] 11/20/2024 Flash Leslie New onset type 2 diabetes mellitus E11.9 ; Essential hypertension I10 and Wart of hand B07.9 Assessments Encounter Date Diagnosis (ICD Code) Assessment Notes Treatment Notes Treatment Clinical Notes Section Notes 11/20/2024 New onset type 2 diabetes mellitus (ICD-10 - E11.9) 11/20/2024 Essential hypertension (ICD-10 - I10) is not doing badly since she is not on her meds for one week 11/20/2024 Wart of hand (ICD-10 - B07.9) discussed whether hpv vaccine helps and i could not find anything Plan Of Treatment Medication Medication Name Sig Start Date Stop Date Notes Valsartan-hydroCHLOROthiazid e 160-12.5 MG 1 tablet Orally Once a day for 30 days 07/23/2024 Ozempic (0.25 or 0.5 MG/DOSE) 2 MG/3ML as directed 0.25 mg Subcutaneous weekly for 30 days 11/20/2024 Treatment Notes Assessment Notes Essential hypertension is not doing badl y since she is not on her meds for one week Wart of hand discussed whether hp v vaccine helps and i could not find anything Next Appt Details Follow Up: 4 Weeks, Reason: Provider Name:Flash braden, 05/30/2025 08:00:00 AM, [address] [place] [address] Drive, [address], [place], [place], [phone], Provider Name:Flash braden, 06/06/2025 01:00:00 PM, [address] [place] [address], [address], [place], [place], [phone], Progress Notes * Armando SIBLEY:1960 ( 64 yo F)Acc No.[id number]:11/20/2024 Progress Notes Patient: Kelsi FRIAS Provider: Sukumar Leslie MD :1960 A ge:64 Y S ex:Female Date:11/20/2024 Address:[address] [place], [place] [phone] Subjective: * Chief Complaints: * 6 month/ discuss hpv shotPatient has not taken BP meds x 1 week * HPI: S ymptom(s): Patient is a 64 yo female here for 6 month follow up visit, wondering about hpv vaccine/ having trouble getting her bp meds from [facility]. * ROS: G eneral/Constitutional: Denies C hills. D enies F atigue. D enies F ever. D enies H eadache. E NT: Denies S ore throat. R espiratory: Denies C ough. D enies S hortness of breath at rest. D enies S hortness of breath with exertion. C ardiovascular: Denies C hest pain at rest. D enies C hest pain with exertion. D enies D izziness. D enies P alpitations. D enies S hortness of breath. G astrointestinal: Denies D iarrhea. D enies N ausea. * Medical History: * Surgical History: * Hospitalization/Major Diagno stic Procedure: * Medications: T akingFreeStyle Lite Test - Strip as directed In Vitro once a day , Notes to Pharmacist: needs DX E11.9Atorvastatin Calcium 20 MG Tablet 1 tablet Orally Once a day Valsartan-hydroCHLOROthiazide 160-12.5 MG Tablet 1 tablet Orally Once a day Taking FreeStyle Lite Test - Strip as directed In Vitro once a day , Notes to Pharmacist: needs DX E11.9Taking Atorvastatin Calcium 20 MG Tablet 1 tablet Orally Once a day Taking Valsartan-hydroCHLOROthiazide 160-12.5 MG Tablet 1 tablet Orally Once a day Not-Taking/PRNTylenol 325 MG Tablet 1 tablet as needed Orally every 6 hrs Vitamin D3 1000 UNIT Tablet 1 tablet Orally Once a day Tamoxifen Citrate 20 MG Tablet 1 tablet Orally Once a day Lotrisone 1-0.05 % Lotion 1 application to affected area Externally Twice a day Medication List reviewed and reconciled with the patientNot-Taking/PRN Tylenol 325 MG Tablet 1 tablet as needed Orally every 6 hrs Not-Taking/PRN Vitamin D3 1000 UNIT Tablet 1 tablet Orally Once a day Not- Taking/PRN Tamoxifen Citrate 20 MG Tablet 1 tablet Orally Once a day Not-Taking/PRN Lotrisone 1-0.05 % Lotion 1 application to affected area Externally Twice a day Medication List reviewed and reconciled with the patient * Allergies: N .K.D.A.yes[Allergies Verified] Objective: * Vitals: H t: 57, Wt: 160, BMI:34.62, BP:182/80, Repeat BP:150/80, Wt-k.58. weight is up 2 pounds since 07-23-24. * P ast Orders: L ab:Lipid Panel with Reflex (Order Date - 11/13/2024) (Collection Date & Time - 11/17/2024 07:17 AM) Value Reference Range Triglycerides 201 H <150 - mg/dL Cholesterol 201 H <200 - mg/dL LDL Cholesterol Calculated 117 H <100 - mg/dL HDL Cholesterol 44 >40 - mg/dL L ab:Liver Panel (Order Date - 11/13/2024) (Collection Date & Time - 11/17/2024 07:17 AM) Value Reference Range Bilirubin Total 0.6 0.0-1.0 - mg/dL Bilirubin Direct 0.2 0.0-0.5 - mg/dL Aspartate Amino Transferase 20 5-31 - U/L Alanine Aminotransferase 23 0-31 - U/L Total Protein 7.5 6.5-8.0 - g/dL Albumin Level 3.9 3.5-5.0 - g/dL Alkaline Phosphatase 85 39-117 - U/L * Examination: G eneral Examination: GENERAL APPEARANCE: p leasant, well nourished, well developed, in no acute distress. HEAD: n ormocephalic. SKIN: g ood turgor. HEART: n o murmurs, rubs, gallops, regular rate and rhythm.? LUNGS: n o wheezes, rales, rhonchi, good air movement, clear to auscultation bilaterally. Assessment: * Assessment: 1. N ew onset type 2 diabetes mellitus - E11.9 (Primary) 2 . E ssential hypertension - I10 3 . W art of hand - B07.9 Plan: * Treatment: 2. E ssential hypertension Refill Valsartan-hydroCHLOROthiazide Tablet, 160-12.5 MG, 1 tablet, Orally, Once a day, 30 days, 90, Refills 3. Notes: is not doing badly since she is not on her meds for one week 3. W art of hand Notes: discussed whether hpv vaccine helps and i could not find anything * Procedure Codes: * Follow Up: 4 Weeks * * Sign off status: Completed true * Provider: Sukumar Leslie MD Date: 0 11/20/2024 Generated for Nohemi harris/Nereida/Ronnie on: 0 05/02/2025 03:34 PM EDT History and Physical Notes * HPI (History of Present Illness) Category Sub-Category Detail Notes Category Not es Symptom(s) Patient is a 64 yo female here for 6 month follow up visit, wondering about hpv vaccine/ having trouble getting her bp meds from [facility] Examination Category Sub-Category Detail Notes Category Not es General Examination GENERAL APPEARANCE: pleasant , well nourished, well developed, in no acute distress HEAD: normocephalic HEART: no murmurs, rubs, ga llops, regular rate and rhythm LUNGS: no wheezes, rales, r honchi, good air movement, clear to auscultation bilaterally SKIN: good turgor
--- OUTSIDE RECORDS SUMMARY | 2025-01-07 09:45 | XMS_ITS ---
Author Organization Flash Leslie MD Address [address] [place], [place] [phone] Care Team Providers Care Fish Farm Manager Name Role Phone Flash Leslie Primary Care Provider [phone] Allergies No Known Allergies REASON FOR VISIT [...] Location Date Provider Diagnosis Flash Leslie MD [address] [place] [address] [address] [place], [place] [phone] 01/07/2025 Flash Leslie New onset type 2 diabetes mellitus E11.9 Assessments Encounter Date Diagnosis (ICD Code) Assessment Notes Treatment Notes Treatment Clinical Notes Section Notes 01/07/2025 New onset type 2 diabetes mellitus (ICD-10 - E11.9) Plan Of Treatment Pending Test Test Name Order Date Hemoglobin A1c 01/07/2025 Glucose, finger stick 01/07/2025 Next Appt Details Provider Name:Flash Zapata ier, 05/30/2025 08:00:00 AM, [address] [place] [address], Suite [facility], [place], [place], [phone], Provider Name:Flash Zapata iepato, 06/06/2025 01:00:00 PM, [address] [place] [address], [place] [address], [place], [place], [phone], Progress Notes * Porsche SIBLEYOB:1960 ( 64 yo F)Acc No.[id number]:01/07/2025 Progress Notes Patient: Fabby FRIASyce Provider: Sukumar Leslie MD :1960 A ge:64 Y S ex:Female Date:01/07/2025 Address:[address] [place], [place] [phone] Subjective: * Chief Complaints: * 1 . [...] work up in past, Had admission to [facility] and work up with mri mrvenogram,ct all [id number]. felt byu neuro to be a migraine, [...] ASSAY, GLUCOSE, BLOOD QUANT, Modifiers: QW , 13924 GLYCATED HEMOGLOBIN TEST, Modifiers: QW * * The named appointment provid er may or may not be the originator of this progress note, and it is not deemed complete until electronically signed by the appointment provider. Sign off status: Pending * Provider: Sukumar Leslie MD Date: 0 01/07/2025 Generated for Nohemi harris/Nereida/Manojsmitting on: 0 05/02/2025 03:33 PM EDT History and Physical Notes * HPI (History of Present Illness) Category Sub-Category Detail Notes Category Not es Symptom(s) patient is a 64 yo female here for 4 week follow up visit
--- OUTSIDE RECORDS SUMMARY | 2025-01-25 06:30 | XMS_ITS ---
Author Organization [facility] Address [address] [place] [address] Care Team Providers Care Metal Engineering Process Worker Name Role Phone Flash Leslie MD Primary Care Provider Rohini Frank Unavailable [phone] REASON FOR VISIT screening,hx polyps Encounters Encounter Location Date Provider Diagnosis [facility] [address] [place] [phone] 01/25/2025 Rohini Lawson Colon cancer scree abel Z12.11 ; History of adenomatous polyp of colon Z86.0101 ; Diverticulosis of large intestine without perforation or abscess without bleeding K57.30 and Other hemorrhoids K64.8 Assessments Encounter Date Diagnosis (ICD Code) Assessment Notes Treatment Notes Treatment Clinical Notes Section Notes 01/25/2025 Colon cancer screening (ICD-10 - Z12.11) 01/25/2025 History of adenomatous polyp of colon (ICD-10 - Z86.0101) 01/25/2025 Diverticulosis of large intestine without perforation or abscess without bleeding (ICD-10 - K57.30) 01/25/2025 Other hemorrhoids (ICD-10 - K64.8) Plan Of Treatment No Information Progress Notes * MARTINE SIBLEYOB:1960 ( 64 yo F)Acc No.[id number]:01/25/2025 COLON WITH MAC Patient: GINNY FRIAS Provider: Frantz Lawson MD :1960 A ge:64 Y S ex:Female Date:01/25/2025 Address:[address] [place], [place] [id number] Pcp:Flash Leslie MD Subjective: * Chief Complaints: * 1 . Screening,hx polyps. * Medical History: Objective: * Vitals: Assessment: * Assessment: 1. C olon cancer screening - Z12.11 (Primary) 2 . H istory of adenomatous polyp of colon - Z86.0101 3 . D iverticulosis of large intestine without perforation or abscess without bleeding - K57.30 4 . O ther hemorrhoids - K64.8 ? Plan: * Treatment: * Procedure Codes: 4 5378 DIAGNOSTIC COLONOSCOPY, Modifiers: 33 * * The named appointment provid er may or may not be the originator of this progress note, and it is not deemed complete until electronically signed by the appointment provider. Sign off status: Pending * Provider: Frantz Lawson MD Date: 0 01/25/2025 Generated for Nohemi harris/Nereida/Zayitting on: 0 05/02/2025 03:33 PM EDT
--- NOTE | 2025-05-02 15:01 | A.OFFVIS_ITS ---
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 Currently not sexually active due to partners health concerns STI testing offered; she declined. Attempting to eat a healthy diet with calcium and vitamin D and stays active with exercise. Last pap smear; 2019, negative. Last mammogram June 2024, no copies available they are completed at [facility]. Colonoscopy is UTD. Denies any family history of ovarian or colon cancer. FH breast cancer-sister. [facility] Medical History History of trigger finger Elevated cholesterol HTN (hypertension) Pre-diabetes Surgical History H/O hand surgery History of lumpectomy of right breast H/O colonoscopy Hx of eye surgery History of surgical removal of meniscus of knee Hx of bilateral breast reduction surgery Family History Mother Diabetes Father Cirrhosis HTN (hypertension) Paternal Uncle Heart attack Maternal Grandfather Cancer of kidney Sister Breast cancer, Onset Age: 27 Thyroid cancer Brother Skin cancer Social History Household Members: Spouse Household Members Other:: son Housing: House Are you a primary dialysis patient care technician to a significant other at home: No Do you presently have visiting nurse or other home services: No Alcohol intake: current Alcohol intake frequency: does not drink Patient Tobacco Use Status: Never used Tobacco Current occupational status: employed 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 Sexual orientation: Straight/Heterosexual Gender identity: Female Female Reproductive History Menstrual Total pregnancies: 0 Date of last pap smear: 11/01/19 (neg pap and hpv) Review of Systems Const All systems reviewed & are unremarkable except as noted in HPI and below Reports as per HPI Eyes Reports no additional complaints ENT Reports no additional complaints Card Reports no additional complaints Resp Reports no additional complaints GI Reports as per HPI and Reports no additional complaints Reports as per HPI Musc Reports no additional complaints Skin/Breast Reports as per HPI Neuro Reports no additional complaints Psych Reports no additional complaints Endo Reports no additional complaints Migel/Lymph Reports no additional complaints Aller/Immun Reports no additional complaints Physical Exam Vital Signs: Last Vital Signs BP 120/74 05/02/25 15:03 BMI result Body Mass Index 32.6 Const General: cooperative, healthy appearing, no acute distress, well developed and alert Orientation/consciousness: patient oriented x3 HEENT Head: Yes normal to inspection Eyes General: appearance normal, both eyes and all related structures Neck Neck: Yes normal visual inspection Thyroid: Thyroid normal Chest Chest palpation & inspection: normal inspection of the chest and other (no puc kering, dimpling, peau de orange, retraction, discharge, masses) Breast/axilla inspection: normal inspection of the breasts Breast/axilla palpation: normal palpation of the breasts Resp Effort & Inspection: normal respiratory effort GI Inspection: Yes normal to inspection Palpation (GI): Soft to palpation Rectal Exam - Female: deferred General: Yes bladder normal to palpation External Female Exam: normal external appearance and normal appearance of the urethra Speculum Exam - Vagina: normal appearance of the vagina, normal palpation, normal vaginal discharge and vagina atrophic Speculum Exam - Cervix: normal appearance of the cervix and normal palpation Bimanual exam- vagina & uterus: normal bimanual exam, normal palpation, uterine size normal, bladder normal to palpation, normal palpation, non-tender and other (Atrophic changes bled with Pap) Bimanual Exam- Adnexa, other: no masses Skin General skin exam: no rashes or lesions noted Rashes: no rashes Neuro General: patient oriented x3 Cognition (Neuro): normal cognition Extrem General: Yes normal to inspection Psych Attitude: cooperative Thought process: Normal thought process present Assessment & Plan Assessment & Plan (1) Encounter for well woman exam with routine gynecological exam: Code(s): Z01.419 - Encounter for gynecological examination (general) (routine) without abnormal findings Category: Medical Plan Discussed: Current recommendations for pap smears per ASCCP guidelines. Pap obtained. Breast awareness, periodic self breast exams and yearly mammogram. Maintain a healthy lifestyle, well balanced diet including Calcium 1,200 mg and Vitamin D 600 IU daily, and routine exercise. Contact the office with any postmenopausal bleeding. Menopausal changes and effects on skin, the role of estrogen topically for vulvar symptoms versus skin balms. Reviewed information with the use of the Internet. Patient verbalizes understanding and agrees to the plan of care. She was given opportunity to ask questions and all questions were answered to the best of my ability. RTO in 1 year for annual carbonizer tester exam. This note is constructed using voice recognition software. While every effort has been made to ensure accuracy, vb developer errors may have been included. Orders: Orders HPV High risk Today Z01.419 - Encounter for gynecological examination (general) (routine) without abnormal findings Pap Smear Today Z01.419 - Encounter for gynecological examination (general) (r outine) without abnormal findings Coding Level of Care Code Est Pt Prev Care 40-64y(03316) Diagnoses Encounter for well woman exam with routine gynecological exam Z01.419
[2025-05-02 15:03] VITALS: BP 120/74; BMI 32.6
--- OUTSIDE RECORDS SUMMARY | 2025-05-02 15:34 | XMS_ITS | Patient Health Record ---
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 Name Role Phone Flash Leslie Primary Care Provider Allergies No Known Allergies Results Component Value Reference Range Notes Hemoglobin A1c Reviewed date:07/23/2024 01:48:47 PM Interpretation: Performing Lab: Notes/Report: Hemoglobin A1c 7.5 Glucose, finger stick Reviewed date:07/23/2024 01:42:04 PM Interpretation: Performing Lab: Notes/Report: Value 102 Complete Blood Count Auto Di ff Reviewed date:05/28/2024 12:56:51 PM Interpretation: Performing Lab:[facility], [address] [place] [phone] Notes/Report: White Blood Count 8.8 4.8-10.8 X10*3/uL [...] NRBC Abs Auto 0.000 0.0-0.012 X10*3/uL Comprehensive [place]. Panel Fa st Reviewed date:05/28/2024 12:56:29 PM Interpretation: Performing Lab:[facility], [address] [place] [phone] Notes/Report: Sodium 143 135-145 mmol/L Potassium 4.0 3.3-5.1 mmol/L Chloride 108 96-108 mmol/L Carbon Dioxide 26 22-29 mmol/L Anion Gap 13 12-20 Blood Urea Nitrogen 12 9-16 mg/dL Creatinine 0.84 0.5-1.4 mg/dL Estimated Glomerular Filt Rate > 60 NOTE: For -Albanian individuals, multiply the result by 1.210. Chronic [...] Panel Reviewed date:05/27/2024 04:19:09 PM Interpretation: Performing Lab:[address] [phone] Notes/Report: Triglycerides 210 <150 mg/dL Desirable Triglyceride: [...] Total Reviewed date:05/27/2024 04:18:57 PM Interpretation: Performing Lab:[address] [phone] Notes/Report: Vitamin D 25-OH Total 22.6 >30 [...] Random Reviewed date:05/27/2024 04:18:44 PM Interpretation: Performing Lab:[facility], [address] [place] [phone] Notes/Report: Creatinine Urine 101.26 Microalbumin Urine 57.0 Microalbum/Creatinine Ratio Ur 56.2 <30 ug/mg cr Albumin/Creatinine Ratio Reference Ranges: Normal: < 30 ug/mg creatinine Microalbuminuria: 30 - 300 ug/mg creatinine Clinical Albuminuria: > 300 ug/mg creatinine Hemoglobin A1c Reviewed date:05/27/2024 04:19:18 PM Interpretation: Performing Lab:[address] [phone] Notes/Report: Hemoglobin A1c % 6.4 <6.0 % [...] average glucose, using the formula of the G6Y-Ndcekvd Average Glucose study (ADAG), Diabetes Care, Vol.31,#8, Apr. 2007 UA ClnCatch+Micro w/rflx Cul t Reviewed date:05/28/2024 12:57:32 PM Interpretation: Performing Lab:[address] [phone] Notes/Report: Urine, Clean Catch Color Urine Yellow Appearance Urine Clear PH 7.5 5.0-9.0 Glucose Urine UA Negative Negative mg/dL Urine Blood Negative Negative Specific [place] - Urine 1.015 1.005-1.025 Urine Protein Trace [...] Problem Status W/U Status Risk Notes Problem 91566600 Vitamin D defici ency (E55.9) Active confirmed Problem 7348803 Primary insomnia (F51.01) Active confirmed Problem Abnormal findings on diagnostic imaging of breast (126018565) Other abnormal and inconclusive findings on diagnostic imaging of breast (R92.8) Active confirmed Problem 989600758 Tubular adenoma of colon (D12.6) Active confirmed Problem 44837587 Essential hypert ension (I10) Active confirmed Problem 222433760 Abnormal mammogr am (R92.8) Active confirmed Problem 08964747 Premenopausal pa tient (N95.9) Active confirmed Problem 289894307 Pure hypercholesterolemia (E78.00) Active confirmed Problem 192511399 Tension type hea dache, unspecified (G44.209) Active confirmed Problem 819569852 Sensorineural he aring loss (SNHL) of both ears (H90.3) Active confirmed Problem 97467355 New onset type 2 diabetes mellitus (E11.9) Active confirmed Problem 667586023354867 History of lobul ar carcinoma in situ [...] Flash Leslie MD [address] [place] [phone] 06/04/2024 Flash Leslie Pure hypercholestero lemia E78.00 ; Annual physical exam Z00.00 ; Periungual wart B07.8 ; New onset type 2 diabetes mellitus E11.9 ; Essential hypertension I10 and Depression screening Z13.31 Flash Leslie MD [address] [place] [phone] 07/23/2024 Flash Leslie New onset type 2 phuc betes mellitus E11.9 ; Other specified cough R05.8 and Adverse effect of yzkrkqrrhsr-nmmmfgliva-opx yme inhibitors, initial encounter T46.4X5A Flash Leslie MD [address] [place] [address] Drive [address] [place] [phone] 11/20/2024 Flash Leslie New onset type 2 phuc betes mellitus E11.9 ; Essential hypertension I10 and Wart of hand B07.9 Flash Leslie MD [address] [place] [address] Drive [address] [place] [phone] 08/23/2024 Flash Leslie Assessments Encounter Date Diagnosis [...] her own appt 07/23/2024 Adverse effect of jgmmnyyqmdm-vmmefctzvw-v nzyme inhibitors, initial encounter (ICD-10 - T46.4X5A) [...] Provider Name:Flashsj Zapata ier, 05/30/2025 08:00:00 AM, [address] [place] [address], [address], [place], [place], [phone], Provider Name:Flash Eber Zapata ier, 06/06/2025 01:00:00 PM, [address] [place] [address], [address], [place], [place], [phone], Insurance Providers Payer Name Payer Address Payer Phone Subscriber Number Group Number Insured Name Patient Relationship to Insured Coverage Start Date Coverage End Date [employer] [address] [place], [place] [phone] [id number] Kelsi Landis Self - patient is the insured Medical (General) History Medical History History ICD Code 01/29/2014 - colonoscopy due in 5 year; Colonoscopy done 09/20/[address] Lawson - repeat 5 years, 01/25/25 colonoscopy repeat 5y Lulu hematuria work up in past had admission to [facility] and wo rk up with mri mrvenogram,ct all [id number]. felt byu neuro to be a migraine Concussion with loss of consciousness of unspecified duration
--- OUTSIDE RECORDS SUMMARY | 2025-05-02 15:34 | XMS_ITS | Clinical Summary ---
Author Organization [facility] Address [address] [place] [address] Care Team Providers Care Dentofacial Orthopedics Dentist Name Role Phone Flash Leslie MD Primary Care Provider [phone] Allergies No known active allergies Medications Medication [...] 71 03/29/2019 1:47 PM EDT Temperature 36.8 C (98.2 F) 03/29/2019 1:47 PM EDT Respiratory Rate - - Oxygen Saturation - [...] Cancer Screening (Mammogram) 2012 Influenza Vaccine (#1) 2025 RSV Adult > 60+ Yrs or Pregn ant (1 - 1-dose 75+ series) 2037 Hepatitis B Vaccines Aged Out No long er eligible based on patient's age to complete this topic RSV Ped < 20 months Aged Out No longe r eligible based on patient's age to complete this topic Care Teams Dentofacial Orthopedics Dentist Relationship Specialty Start Date End Date Flash Leslie MD [address] [place] [address] [place] [phone] PCP - General Internal Medicine 03/18/17
--- OUTSIDE RECORDS SUMMARY | 2025-05-02 15:34 | XMS_ITS | Clinical Summary ---
Author Organization [facility] Address [address] [place] [phone] Phone Care Team Providers Care Insurance Follow Up Rep Name Role Phone Flash Leslie MD Primary Care Provider Medical History Medical History Date Comments Breast neoplasm, Tis (LCIS) DX:B reast neoplasm, Tis (LCIS) Hypertension DX:Hypertension Hyperlipidemia DX:Hyperlipidemi a Social History Tobacco Use Types Packs/Day Years Used Date Smoking Tobacco: Never Smokeless Tobacco: Never Alcohol Use Standard Drinks/Week Comments No 0 (1 standard drink = 0.6 oz pur e alcohol) Comments Unknown Sex and Gender Information Value Date Recorded Sex Assigned at Not on file Legal Sex Female 5:10 AM EST Gender Identity Not on file Sexual Orientation Not on file Obstetrics History Plan of Treatment Health Maintenance Due Date Last Done Comments COVID-19 Vaccine (#1) 1967 DTaP,Tdap,and Td Vaccines (1 - Tdap) 1981 Pneumococcal Vaccine: 50+ Years (1 of 2 - PCV) 1981 Zoster Vaccines (1 of 2) 1981 Cervical Cancer Screening: P ap Smear 1983 Colorectal Cancer Screening: Colonoscopy 08/08/2022 HIV Screening 08/08/2022 Hepatitis C Screening 08/08/2022 Social Influencers of Health Screening 08/08/2022 Depression Screening 09/05/2024 Influenza Vaccine (#1) 2025 Breast Cancer Screening 06/18/2026 06/18/20, 06/17/2023, 10/01/2020 RSV Immunization Adult Patients (1 - 1-dose 75+ series) 2037 HIB Vaccines Aged Out No longer eligi ble based on patient's age to complete this topic HPV Vaccines Aged Out No longer eligi ble based on patient's age to complete this topic Hepatitis A Vaccines Aged Out No long er eligible based on patient's age to complete this topic Hepatitis B Vaccines Aged Out No long er eligible based on patient's age to complete this topic IPV Vaccines Aged Out No longer eligi ble based on patient's age to complete this topic MMR Vaccines Aged Out No longer eligi ble based on patient's age to complete this topic Meningococcal ACWY Vaccine Aged Out N o longer eligible based on patient's age to complete this topic Meningococcal B Vaccine Aged Out No l onger eligible based on patient's age to complete this topic RSV Immunization Patients Under 20 months Aged Out No longer eligible b ased on patient's age to complete this topic Varicella Vaccines Aged Out No longer eligible based on patient's age to complete this topic Procedures Procedure Name Priority Date/Time Associated Diagnosis Comments [facility] SCREENING DIGITAL Routine 06/18/2024 3:21 PM EDT Encounter for screening mammogram for malignant neoplasm of breast from Last 3 Months or Most Recently Relevant to Health Maintenance Results * [facility] SCREENING DIGITAL (06/18/2024 3:21 PM EDT) Anatomical Region Laterality Modality Mammography 06/18/2024 1:23 PM EDT Narrative 06/18/2024 3:21 PM EDT [facility] Diagnostic Imaging Department [address] [place] [id number] Patient: KELSI SIBLEY D.O.B./Age/Sex: 1960 - 63 - F Unit#: [id number] Location/Status: SPDIMAM/REG CLI Mnemonic/Ordering Site: [facility] Ordering Physician: JOSE G HOBSNO MD Vy Screening Digital - 06/18/24 - 1341 Report Status:Signed EXAM: SCREENING MAMMOGRAPHY, BILATERAL HISTORY: SCREENING. Sister diagnosed with breast cancer. 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 Report 03/20/2019 indicates-right breast cancer diagnosed age 52 treated with lumpectomy. Report also indicates bilateral reduction surgery COMPARISON: 06/16/2023, 10/01/2020, 09/26/2019 TECHNIQUE: Synthesized CC and MLO projections of each breast. Tomosynthesis of each breast in the CC and MLO projections. ADDITIONAL IMAGING: None Computer-aided detection was employed with the Merchant Atlas[employer] MetaPack AI 3-D. TISSUE DENSITY: There are scattered areas of fibroglandular density. (BI-RADS category B) FINDINGS: Breast size has decreased when compared to 12/23/2015. I am uncertain as to the timing of reduction surgery. RIGHT BREAST: There is architectural distortion consistent with previous surgery. There are stable focal asymmetries. There is no new suspicious right breast finding LEFT BREAST: There is an incompletely included 1 cm asymmetry close to the chest wall in the outer left breast 10 cm from the nipple. I cannot confirm stability. There is architectural distortion with scattered stable focal asymmetries and some oil cysts. No other suspicious left breast finding. IMPRESSION: Incompletely characterized partially included asymmetry close to the chest wall in the outer left breast. Recommend diagnostic left mammography including Tomosynthesis in the craniocaudal projection exaggerated 20 axilla. Recommend spot compression Tomosynthesis. Recommend targeted diagnostic left breast ultrasound if there is a persistent suspicious abnormality. Evidence of previous bilateral breast surgery. The patient has a history of high risk findings on previous surgery. ASSESSMENT: BI-RADS 0: INCOMPLETE - need additional imaging evaluation and/or prior mammograms for comparison RECOMMENDATION(S): 1: Special mammographic view(s) needed LEFT , recommend targeted diagnostic left breast ultrasound if there is a persistent suspicious abnormality Dictating Physician: Briana MONTEZ BRET MD Electronically Signed by: Briana MONTEZ BRET MD Dic Date/Time: 06/18/24 0231 Sign date/Time: 06/18/24 1521 Procedure Note Thompson Montez MD - 07/03/2024 [facility] Diagnostic Imaging Department [address] [place] [address] [id number] Patient: SENTHILESHAKELSI D.O.B./Age/Sex: 1960 - 63 - F Unit#: [id number] Location/Status: SPDIMA/REG CLI Mnemonic/Ordering Site: [facility] Ordering Physician: JOSE G HOBSON MD Vy Screening Digital - 06/18/24 - 1341 Report Status:Signed EXAM: SCREENING MAMMOGRAPHY, BILATERAL HISTORY: SCREENING. Sister diagnosed with breast cancer. 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 Report 03/20/2019 indicates-right breast cancer diagnosed age 52 treatedwith lumpectomy. Report also indicates bilateral reduction surgery COMPARISON: 06/16/2023, 10/01/2020, 09/26/2019 TECHNIQUE: Synthesized CC and MLO projections of each breast.Tomosynthesis of each breast in the CC and MLO projections. ADDITIONAL IMAGING: None Computer-aided detection was employed with the Merchant [employer] MetaPack AI 3-D. TISSUE DENSITY: There are scattered areas of fibroglandular density.(BI-RADS category B) FINDINGS: Breast size has decreased when compared to 12/23/2015. I am uncertain asto the timing of reduction surgery. RIGHT BREAST: There is architectural distortion consistent with previous surgery. Thereare stable focal asymmetries. There is no new suspicious right breast finding LEFT BREAST: There is an incompletely included 1 cm asymmetry close to the chest ruma the outer left breast 10 cm from the nipple. I cannot confirm stability. There is architectural distortion with scattered stable focal asymmetriesand some oil cysts. No other suspicious left breast finding. IMPRESSION: Incompletely characterized partially included asymmetry close to the chestwall in the outer left breast. Recommend diagnostic left mammography including Tomosynthesis in the craniocaudal projection exaggerated 20 axilla. Recommend spotcompression Tomosynthesis. Recommend targeted diagnostic left breast ultrasound if there is apersistent suspicious abnormality. Evidence of previous bilateral breast surgery. The patient has a history of high risk findings on previous surgery. ASSESSMENT: BI-RADS 0: INCOMPLETE - need additional imaging evaluation and/or prior mammograms for comparison RECOMMENDATION(S): 1: Special mammographic view(s) needed LEFT , recommend targeteddiagnostic left breast ultrasound if there is a persistent suspicious abnormality Dictating Physician: Briana MONTEZ BRET MD Electronically Signed by: Briana MONTEZ BRET MD Dic Date/Time: 06/18/24 1458 Sign date/Time: 06/18/24 1521 us Jose G Hobson MD IMG BI PROCEDURES Final Res ult from Last 3 Months or Most Recently Relevant to Health Maintenance Care Teams Insurance Follow Up Rep Relationship Specialty Start Date End Date Flash Leslie MD PCP - General Internal Medicine 03/18/17
--- OUTSIDE RECORDS SUMMARY | 2025-05-02 15:34 | XMS_ITS | Patient Health Record ---
Author Organization [facility] Address [address] [place] [address] Care Team Providers Care Research Assistant Member Name Role Phone Flash Acevedo MD Primary Care Provider Rohini Frank Unavailable [phone] Reason For Referral Referring Provider First Name Flash Referring Provider Last Name Mariama Referring Provider Speciality Internal M edicine Referred Organization [facility] Referred Provider Rohini Lawson Referred Address [address] [place] [address],[address],[place], [place],[address],[place] Referred Provider Specialty Gastroentero logy General Notes [...] Problem Status W/U Status Risk Notes Problem [id number] Encounter for screening for malignant neoplasm of colon (Z12.11) Active confirmed Problem 728634521049817 Preprocedural examination (Z01.818) Active confirmed Problem 120333902 Gastroesophageal reflux disease, esophagitis presence not specified (K21.9) Active confirmed Problem 301511119 Hx of adenomatou s colonic polyps (Z86.010) Active confirmed Vital Signs Temperature 97.5 degrees Fahrenheit 10/10/2024 Blood pressure diastolic 00 mm Hg 10/10/2024 Height 58 in 10/10/2024 Blood pressure systolic 00 mm Hg 10/10/2024 Weight 158 lb 2 oz lbs 10/10/2024 BMI 33.04 kg/m2 10/10/2024 Encounters Encounter Location Date Provider Diagnosis [facility] Outpatient [address] [place] [phone] 01/25/2025 Rohini Lawson Colon cancer screeni ng Z12.11 ; History of adenomatous polyp of colon Z86.0101 ; Diverticulosis of large intestine without perforation or abscess without bleeding K57.30 and Other hemorrhoids K64.8 [facility] [address] [place] [phone] 10/10/2024 Rohini Lawson Hx of adenomatous colonic polyps Z86.010 ; Preprocedural examination Z01.818 and Encounter for screening for malignant neoplasm of colon Z12.11 [facility] [address] [place] [phone] 08/20/2024 Rohini Lawson Assessments Encounter Date Diagnosis (ICD Code) Assessment Notes Treatment Notes Treatment Clinical Notes Section Notes 01/25/2025 Colon cancer screening (ICD-10 - Z12.11) 01/25/2025 History of adenomatous polyp of colon (ICD-10 - Z86.0101) 10/10/2024 Preprocedural examination (ICD-10 - Z01.818) Overall, [...] to keep you advised of her progress. 01/25/2025 Diverticulosis of large intestine without perforation or abscess without bleeding (ICD-10 - K57.30) 10/10/2024 Encounter for screening for malignant neoplasm [...] to keep you advised of her progress. 01/25/2025 Other hemorrhoids (ICD-10 - K64.8) Plan Of Treatment Future Test Test Name Order Date COLONOSCOPY 10/05/2013 COLONOSCOPY 08/08/2019 COLONOSCOPY 10/10/2024 Insurance Providers Payer Name Payer Address Payer Phone Subscriber Number Group Number Insured Name Patient Relationship to Insured Coverage Start Date Coverage End Date [facility] [employer] CLAIMS [address] [place] [address] [id number] KELSI SIBLEY Self - patient is the insured Medical (General) History Medical History History ICD Code Hyperlipidemia Denies VT,CVA,Lung disease,renal disease HTN Neg colonoscopy in 02/2003 except for int ernal hemorrhoids Colonoscopy in 01/2014 with a small tubul ar adenima removed Negative colonoscopy in 09/2019 Diet-controlled diabetes Surgical History Surgery Date(Month/Year) Lumpectomy, right breast--bi opsies neg for breast cancer, but sees Dr. Martinez and Dr. Sidney Wiseman at [facility] and was on Tamoxifen 06/2013 Breast reduction Meniscus tear right knee Retinal detachment right eye with laser surgery-successful Trigger fingers on right hand
--- OUTSIDE RECORDS SUMMARY | 2025-05-02 15:34 | XMS_ITS | Clinical Summary ---
Author Organization [facility] Address [address] [address] Phone Care Team Providers Care Charging Car Operator Name Role Phone Flash Leslie MD Primary Care Provider Allergies No known active allergies Medications atorvastatin (LIPITOR) 10 MG tablet Take 10 mg by mouth. Active valsartan (DIOVAN) 40 MG tablet Take 20 mg by mouth. Active lidocaine (LIDODERM) 5 % Place 1 patch onto the skin daily. Remove & Discard patch within 12 hours or as directed by 30 patch 06/05/2019 Active Social History Tobacco Use Types Packs/Day Years Used Date Smoking Tobacco: Never Smokeless Tobacco: Never Alcohol Use Standard Drinks/Week Comments No 0 (1 standard drink = 0.6 oz pur e alcohol) Education Answer Date Recorded Are you interested in more education? Not on ceferino e 12/31/2022 Are you concerned about learning? Not on file 12/31/2022 No 12/31/2022 No 12/31/2022 Digital Access Answer Date Recorded No 01/29/2023 No 01/29/2023 Reliable internet access at home? Not on file 01/29/2023 Device with a working camera? Not on file Comments Unknown Sex and Gender Information Value Date Recorded Sex Assigned at Female 10/30/2018 8:33 AM EST Legal Sex Female 9:45 PM EDT Gender Identity Female 10/30/2018 8:33 AM EST Sexual Orientation Straight 10/30/2018 8: 33 AM EST Last Filed Vital Signs Vital Sign Reading Time Taken Comments Blood Pressure 158/88 06/12/2019 2:12 PM EDT Pulse 63 06/12/2019 2:12 PM EDT Temperature 36.6 C (97.9 F) 06/12/2019 2:12 PM EDT Respiratory Rate 16 10/30/2018 8:31 AM EST Oxygen Saturation 98% 06/12/2019 2:12 PM EDT Inhaled Oxygen Concentration - - Weight 70.8 kg (156 lb) 06/12/2019 2:12 PM EDT Height 144.8 cm (4' 9 ) 06/12/2019 2:12 PM EDT Body Mass Index 33.76 06/12/2019 2:12 PM EDT Plan of Treatment Health Maintenance Due Date Last Done Comments Adult Td,Tdap Booster 1960 CREATININE LEVEL 1960 LIPID PANEL 1960 POTASSIUM LEVEL 1960 DEPRESSION SCREENING 1974 HEPATITIS C SCREENING 1980 HIV ONE-TIME SCREENING (18-6 5 YEARS) 1980 PAP SMEAR 1983 MAMMOGRAM 2002 COLOGUARD 2007 COLONOSCOPY 2007 COLORECTAL CANCER SCREENING 2007 FIT TEST 2007 FOBT 2007 SIGMOIDOSCOPY 2007 VIRTUAL COLONOSCOPY 2007 PNEUMOCOCCAL VACCINES (50+ years) (1 of 1 - PCV) 2012 ZOSTER VACCINES (1 of 2) 2012 COVID-19 VACCINE (3 - 2023-2 5 season) 2024 01/10/2021, 12/19/2020 RSV VACCINE (1 - 1-dose 75+ series) 2037 SMOKING STATUS SCREENING (On ce After 26 Yrs) Completed 06/12/2019 HEPATITIS A VACCINES Aged Out No long er eligible based on patient's age to complete this topic HIB VACCINES Aged Out No longer eligi ble based on patient's age to complete this topic MENINGOCOCCAL VACCINES (ACWY) Aged Out No longer eligible based on patient's age to complete this topic MENINGOCOCCAL VACCINES (B) Aged Out N o longer eligible based on patient's age to complete this topic Medical Devices Not on file Insurance [facility] POS EPO [facility] POS EPO [facility] POS [place] [address] [place] [id number] POS EPO [facility] [place] [address] [place] [address] POS EPO [employer] [facility] POS EPO Care Teams Charging Car Operator Relationship Specialty Start Date End Date Flash Leslie MD [address] [place] [address] [place] [address] PCP - General 06/21/17 Additional Source Comments The information contained in this document represents components of the legal health record. It is not the complete legal health record.[facility]
== END 2025-05-02 15:54 | disposition home or self-care (01) ==
LOC: HO.HWS 14:54
PROVIDERS: PCP Internal Medicine; Visit Provider Advanced Practice Midwife
DX: Z01.419 Encounter for gynecological examination (general) (routine) without abnormal findings (principal)
CPT/HCPCS: 99396; 99459

== ENCOUNTER 2025-06-01 07:20 | Outpatient (REF) | payer BC, SELFPAY ==
--- OUTSIDE RECORDS SUMMARY | 2024-11-13 03:45 | XMS_ITS ---
Author Organization Flash Leslie MD Address [address] [place], [place] [id number] Care Team Providers Care Log Skidder Name Role Phone Flash Leslie Primary Care Provider Results Component Value Reference Range Notes Liver Panel Reviewed date:11/18/2024 05:18:41 PM Interpretation: Performing Lab:[facility], [address] [place] [phone] Notes/Report: Bilirubin Total 0.6 0.0-1.0 mg/dL Bilirubin Direct 0.2 0.0-0.5 mg/dL Aspartate Amino Transferase 20 5-31 U/L Alanine Aminotransferase 23 0-31 U/L Total Protein 7.5 6.5-8.0 g/dL Albumin Level 3.9 3.5-5.0 g/dL Alkaline Phosphatase 85 39-117 U/L Lipid Panel with Reflex Reviewed date:11/18/2024 05:18:06 PM Interpretation: Performing Lab:[facility], [address] [place] [phone] Notes/Report: Triglycerides 201 <150 mg/dL Desirable Triglyceride: [...] Location Date Provider Diagnosis Flash Leslie MD [address] [place] [address] [place] [phone] 11/13/2024 Flash Leslie Pure hypercholestero lemia E78.00 Assessments Encounter Date Diagnosis (ICD Code) Assessment Notes Treatment Notes Treatment Clinical Notes Section Notes 11/13/2024 Pure hypercholesterolemia (ICD-10 - E78.00) Plan Of Treatment Next Appt Details Provider Name:Flash Zapata ier, 06/06/2025 01:00:00 PM, [address] [place] [address], [address], [place], [place], [phone], Progress Notes * SENTHILFabby BALBUENADayronOB:1960 ( 64 yo F)Acc No.[id number]:11/13/2024 Progress Note Patient: Kelsi FRIAS Provider: Sukumar Leslie MD :1960 A ge:64 Y S ex:Female Date:11/13/2024 Address:[address] [place] [phone] Subjective: * Chief Complaints: * 1 . [...] MD Date: 0 11/13/2024 Generated for Nohemi harris/Nereida/Ronnie on: 0 06/01/2025 07:24 AM EDT
--- OUTSIDE RECORDS SUMMARY | 2024-11-20 09:45 | XMS_ITS ---
Author Organization Flash Leslie MD Address [address] [place], [place] [phone] Care Team Providers Care Marquetry Worker Name Role Phone Flash Leslie Primary Care [...] Location Date Provider Diagnosis Flash Leslie MD [address] [place] [address] Drive [address] [place], [place] [phone] 11/20/2024 Flash Leslie New onset type 2 [...] Up: 4 Weeks, Reason: Provider Name:Flash braden, 06/06/2025 01:00:00 PM, [address], [address], [place], [place], [phone], Progress Notes * Porsche SIBLEYOB:1960 ( 64 yo F)Acc No.[id number]:11/20/2024 Progress Notes Patient: Kelsi FRIAS Provider: Sukumar Leslie MD :1960 A ge:64 Y S ex:Female Date:11/20/2024 Address:[address] [id number] Subjective: * Chief Complaints: * 6 month/ discuss hpv shotPatient has not taken BP meds x 1 week * HPI: S ymptom(s): Patient is a 64 yo female here for 6 month follow up visit, wondering about hpv vaccine/ [facility] * ROS: G eneral/Constitutional: Denies C hills. [...] MD Date: 0 11/20/2024 Generated for Nohemi harris/Nereida/Zayitting on: 0 06/01/2025 07:24 AM EDT History and Physical Notes * [...]
--- OUTSIDE RECORDS SUMMARY | 2025-01-07 09:45 | XMS_ITS ---
Author Organization Flash Leslie MD Address [address] [place], [place] [phone] Care Team Providers Care Elementary Principal Name Role Phone Flash Leslie Primary Care Provider Allergies No Known Allergies REASON FOR VISIT 4 week Medications Medication SIG (Take, Route, Frequency, Duration) Notes Start Date End Date Status Atorvastatin Calcium 20 MG 1 tablet Orally Once a day for 90 days 11/29/2022 Active Tylenol 325 MG 1 tablet as needed Orally every 6 hrs Not-Taking Ozempic (0.25 or 0.5 MG/DOSE) 2 MG/3ML as directed 0.25 mg Subcutaneous weekly for 30 days 11/20/2024 Active Valsartan-hydroCHLORO thiazide 160-12.5 MG 1 tablet Orally Once a day for 30 days 07/23/2024 Active FreeStyle Lite Test - as directed In Vit ro once a day for 30 days needs DX E11.9 08/26/2022 Active Vitamin D3 1000 UNIT 1 tablet Orally Onc e a day 04/11/2018 Not-Taking Lotrisone 1-0.05 % 1 application to affected area Externally Twice a day for 30 days 09/02/2011 Not-Taking Tamoxifen Citrate 20 MG 1 tablet Orally Once a day for 30 day(s) Not-Taking Encounters Encounter Location Date Provider Diagnosis Flash Leslie MD [address] [place], [place] [phone] 01/07/2025 Flash Leslie New onset type 2 diabetes mellitus E11.9 Assessments Encounter Date Diagnosis (ICD Code) Assessment Notes Treatment Notes Treatment Clinical Notes Section Notes 01/07/2025 New onset type 2 diabetes mellitus (ICD-10 - E11.9) Plan Of Treatment Pending Test Test Name Order Date Hemoglobin A1c 01/07/2025 Glucose, finger stick 01/07/2025 Next Appt Details Provider Name:Flash Zapata ier, 06/06/2025 01:00:00 PM, [address], [address], [place], [place], [phone], Progress Notes * SENTHILESHA PorscheOB:1960 ( 64 yo F)Acc No.[id number]:01/07/2025 Progress Notes Patient: Kelsi FRIAS Provider: Sukumar Leslie MD :1960 A ge:64 Y S ex:Female Date:01/07/2025 Address:[address] [place], [place] [phone] Subjective: * Chief Complaints: * 1 . 4 week. * HPI: S ymptom(s): patient is a 64 yo female here for 4 week follow up visit. * ROS: G eneral/Constitutional: Denies C hills. D enies F atigue. D enies F ever. D enies H eadache. E NT: Denies S ore throat. R espiratory: Denies C ough. D enies S hortness of breath at rest. D enies S hortness of breath with exertion. G astrointestinal: Denies D iarrhea. D enies N ausea. * Medical History: - colonoscopy due in 5 year; Colonoscopy done 09/20/[address] Lawson - repeat 5 years, Hematuria work up in past, Had admission to [facility] and work up with mri mrvenogram,ct all [id number]. felt byu neuro to be a migraine, Concussion with loss of consciousness of unspecified duration. * Medications: T aking FreeStyle Lite Test - Strip as directed In Vitro once a day , Notes to Pharmacist: needs DX E11.9, Taking Atorvastatin Calcium 20 MG Tablet 1 tablet Orally Once a day , Taking Valsartan-hydroCHLOROthiazide 160-12.5 MG Tablet 1 tablet Orally Once a day , Taking Ozempic (0.25 or 0.5 MG/DOSE) 2 MG/3ML Solution Pen-injector as directed 0.25 mg Subcutaneous weekly , Not-Taking/PRN Tylenol 325 MG Tablet 1 tablet as needed Orally every 6 hrs , Not-Taking/PRN Vitamin D3 1000 UNIT Tablet 1 tablet Orally Once a day , Not-Taking/PRN Tamoxifen Citrate 20 MG Tablet 1 tablet Orally Once a day , Not-Taking/PRN Lotrisone 1-0.05 % Lotion 1 application to affected area Externally Twice a day * Allergies: N .K.D.A. Objective: * Vitals: Assessment: * Assessment: 1. N ew onset type 2 diabetes mellitus - E11.9 (Primary) Plan: * Treatment: * Procedure Codes: 8 2947 ASSAY, GLUCOSE, BLOOD QUANT, Modifiers: QW , 11188 GLYCATED HEMOGLOBIN TEST, Modifiers: QW * * The named appointment provid er may or may not be the originator of this progress note, and it is not deemed complete until electronically signed by the appointment provider. Sign off status: Pending * Provider: Sukumar Leslie MD Date: 0 01/07/2025 Generated for Nohemi harris/Nereida/Ronnie on: 0 06/01/2025 07:24 AM EDT History and Physical Notes * HPI (History of Present Illness) Category Sub-Category Detail Notes Category Not es Symptom(s) patient is a 64 yo female here for 4 week follow up visit
--- OUTSIDE RECORDS SUMMARY | 2025-01-25 06:30 | XMS_ITS ---
Author Organization [facility] Address [address] [place] [phone] Care Team Providers Care Purchase Request Editor Name Role Phone Flash Leslie MD Primary Care Provider Rohini Frank Unavailable [phone] REASON FOR VISIT screening,hx polyps Encounters Encounter Location Date Provider Diagnosis [facility] [address] [place] [phone] 01/25/2025 Rohini Lawson Colon cancer scree abel [...] * MARTINE SIBLEYOB:1960 ( 64 yo F)Acc No.[id number]:01/25/2025 COLON WITH MAC Patient: GINNY FRIAS Provider: Frantz Lawson MD :1960 A ge:64 Y S ex:Female Date:01/25/2025 Address:[address] [place], [place] [phone] Pcp:Flash Leslie MD Subjective: * Chief Complaints: [...] 01/25/2025 Generated for Nohemi harris/Nereida/Zayitting on: 0 06/01/2025 07:24 AM EDT
--- OUTSIDE RECORDS SUMMARY | 2025-05-17 06:30 | XMS_ITS ---
Author Organization Flash Leslie MD Address [address] [place], [place] [id number] Care Team Providers Care Real Estate Associate Attorney Name Role Phone Flash Leslie Primary Care Provider Allergies No Known Allergies REASON FOR VISIT cough sore throat x 5 days will test for Covid, Video [phone] Medications Medication SIG (Take, Route, Frequency, Duration) Notes Start Date End Date Status Zithromax Z-Vikram 250 MG 2 tablet on the first day, then 1 tablet daily for 4 days Orally Once a day for 5 day(s) 05/17/2025 Active Tylenol 325 MG 1 tablet as needed Orally every 6 hrs Not-Taking Tamoxifen Citrate 20 MG 1 tablet Orally Once a day for 30 day(s) Not-Taking Vitamin D3 1000 UNIT 1 tablet Orally Onc e a day 04/11/2018 Not-Taking Atorvastatin Calcium 20 MG 1 tablet Orally [...] a day for 30 days 09/02/2011 Not-Taking Vital Signs Height 57 in 05/17/2025 Weight 160 lbs 05/17/2025 BMI 34.62 kg/m2 05/17/2025 weight is 160 BP not taken n o temp Encounters Encounter Location Date Provider Diagnosis Flash Leslie MD [address] [facility] [address] [place] [phone] 05/17/2025 Flash Leslie Bronchitis J40 Assessments Encounter Date Diagnosis (ICD Code) Assessment Notes Treatment Notes Treatment Clinical Notes Section Notes 05/17/2025 Bronchitis (ICD-10 - J40) patient verbalized understandng of medication and directions for use Plan Of Treatment Medication Medication Name Sig Start Date Stop Date Notes Zithromax Z-Vikram 250 MG 2 tablet on the f irst day, then 1 tablet daily for 4 days Orally Once a day for 5 day(s) 05/17/2025 Treatment Notes Assessment Notes Bronchitis patient verbalized u nderstandng of medication and directions for use Next Appt Details Provider Name:Flash Zapata ier, 06/06/2025 01:00:00 PM, [address] [place] [address], Suite [facility], [place], [place], [phone], Progress Notes * Porsche SIBLEYOB:1960 ( 64 yo F)Acc No.[id number]:05/17/2025 Patient: Kelsi FRIAS Provider: Sukumar Leslie MD :1960 A ge:64 Y S ex:Female Date:05/17/2025 Address: [address] [place], [phone] Subjective: * Chief Complaints: * c ough sore throat x 5 days will test for CovidVideo [phone] * HPI: S ymptom(s): Telehealth L ocation of provider rendering services: 1 [address] [facility], [address], ocation of patient: a t address listed in demographics for today's visit, P atient identification confirmed using: N elena, , T elehealth method: V ideo conference where patient is visible to the provider of care, C onsent: P atient verbally consented to treatment, Patient verbally consented to billing insurance company, Patient informed of any privacy concerns related to method of visit, T mia time spend talking with patient (minutes) 1 8. patient is a 64 yo female video telehealth visit has tested for covid twice, negative. has been sick for 5 days, coughing sore throat and cough. a little wheeze. has a sister with asthma. * ROS: G eneral/Constitutional: Denies C hills. A dmits F atigue. D enies F ever. A dmits H eadache. E NT: Admits S ore throat. R espiratory: Admits C ough. D enies S hortness of breath at rest. A dmits S hortness of breath with exertion. D enies S putum production. A dmits W heezing. G astrointestinal: Denies D iarrhea. A dmits N ausea. * Medical History: * Surgical [...] to affected area Externally Twice a day Not-Taking/PRN Tylenol 325 MG Tablet 1 tablet as needed Orally every 6 hrs Not-Taking/PRN Vitamin D3 1000 UNIT Tablet 1 tablet Orally Once a day Not-Taking/PRN Tamoxifen Citrate 20 MG Tablet 1 tablet Orally Once a day Not-Taking/PRN Lotrisone 1-0.05 % Lotion 1 application to affected area Externally Twice a day DiscontinuedOzempic (0.25 or 0.5 MG/DOSE) 2 MG/3ML Solution Pen- injector as directed 0.25 mg Subcutaneous weekly Medication List reviewed and reconciled with the patientDiscontinued Ozempic (0.25 or 0.5 MG/DOSE) 2 MG/3ML Solution Pen- injector as directed 0.25 mg Subcutaneous weekly Medication List reviewed and reconciled with the patient * Allergies: N .K.D.A.yes[Allergies Verified] Objective: * Vitals: H t: 57, Wt: 160, BMI:34.62, Wt-k.58. weight is 160 BP not taken no temp. * Examination: G eneral Examination: GENERAL APPEARANCE: a lert, well hydrated, in no distress.? Assessment: * Assessment: 1. B iesha - Ricki (Primary) Plan: * Treatment: * Procedure Codes: * * Sign off status: Completed true * Provider: Sukumar Leslie MD Date: 0 05/17/2025 Generated for Nohemi harris/Nereida/Manojsmitting on: 0 06/01/2025 07:24 AM EDT History and Physical Notes * HPI (History of Present Illness) Category Sub-Category Detail Notes Category Not es Symptom(s) Telehealth Location of [facility] rendering services:: [address], [address] patient is a 64 yo female video telehealth visit has tested for covid twice, negative. has been sick for 5 days, coughing sore throat and cough. a little wheeze. has a sister with asthma Location of patient:: at address listed in demographics for today's visit Patient identification confirmed using:: Name, Telehealth method:: Video co nference where patient is visible to the provider of care Consent:: Patient verbally c onsented to treatment, Patient verbally consented to billing insurance company, Patient informed of any privacy concerns related to method of visit Total time spend talking with patient (m inutes): 18 Examination Category Sub-Category Detail Notes Category Not es General Examination GENERAL APPEARANCE: alert, w ell hydrated, in no distress
--- OUTSIDE RECORDS SUMMARY | 2025-05-30 04:00 | XMS_ITS ---
Author Organization Flash Leslie MD Address [address] [place] [phone] Care Team Providers Care Station Examiner Name Role Phone Mariama Flash Primary Care Provider REASON FOR VISIT yearly fasting labs Encounters Encounter Location Date Provider Diagnosis Flash Leslie MD [address] [place], [place] [phone] 05/30/2025 lFash Leslie Blood tests for rout ine general physical examination Z00.00 ; Pure hypercholesterolemia E78.00 ; Vitamin D deficiency E55.9 ; New onset type 2 diabetes mellitus E11.9 and Essential hypertension I10 Assessments Encounter Date Diagnosis (ICD Code) Assessment Notes Treatment Notes Treatment Clinical Notes Section Notes 05/30/20[address] tests [address] ine general physical examination (ICD-10 - Z00.00) 05/30/2025 Pure hypercholesterolemia (ICD-10 - E78.00) 05/30/2025 Vitamin D deficiency (ICD-10 - E55.9) 05/30/2025 New onset type 2 diabetes mellitus (ICD-10 - E11.9) 05/30/2025 Essential hypertensi on (ICD-10 - I10) Plan Of Treatment Pending Test Test Name Order Date Complete Blood Count Auto Diff 5 Comprehensive [place]. Panel Fast Lipid Panel 05/30/2025 Vitamin D 25-OH Total 05/30/2025 Microalbumin, Random 05/30/2025 Hemoglobin A1c 05/30/2025 UA ClnCatch+Micro w/rflx Cult 05/30/2025 Next Appt Details Provider Name:Flash Eber Zapata ier, 06/06/2025 01:00:00 PM, [address] [place] [address], [address], [place], [place], [phone], Progress Notes * Kiesha SIBLEYeDOB:1960 ( 64 yo F)Acc No.[id number]:05/30/2025 Progress Note Patient: Kelsi FRIAS Provider: Sukumar Leslie MD :1960 A ge:64 Y S ex:Female Date:05/30/2025 Address:[address] [place], [place] [phone] Subjective: * Chief Complaints: * 1 . Yearly fasting labs. * Medical History: Objective: * Vitals: Assessment: * Assessment: 1. B lood tests for routine general physical examination - Z00.00 (Primary) 2 .?Pure hypercholesterolemia - E78.00 3 . V itamin D deficiency - E55.9 ? 4 . N ew onset type 2 diabetes mellitus - E11.9 5 . E ssential hypertension - I10 Plan: * Treatment: 2. P ure hypercholesterolemia L AB: Complete Blood Count Auto Diff L AB: Comprehensive [place]. Panel Fast L AB: Lipid Panel L AB: Vitamin D 25-OH Total L AB: Microalbumin, Random L AB: Hemoglobin A1c L AB: UA ClnCatch+Micro w/rflx Cult 3. V itamin D deficiency L AB: Complete Blood Count Auto Diff L AB: Comprehensive [place]. Panel Fast L AB: Lipid Panel L AB: Vitamin D 25-OH Total L AB: Microalbumin, Random L AB: Hemoglobin A1c L AB: UA ClnCatch+Micro w/rflx Cult 4. N ew onset type 2 diabetes mellitus L AB: Complete Blood Count Auto Diff L AB: Comprehensive [place]. Panel Fast L AB: Lipid Panel L AB: Vitamin D 25-OH Total L AB: Microalbumin, Random L AB: Hemoglobin A1c L AB: UA ClnCatch+Micro w/rflx Cult 5. E ssential hypertension L AB: Complete Blood Count Auto Diff L AB: Comprehensive [place]. Panel Fast L AB: Lipid Panel L AB: Vitamin D 25-OH Total L AB: Microalbumin, Random L AB: Hemoglobin A1c L AB: UA ClnCatch+Micro w/rflx Cult * * The named appointment provid er may or may not be the originator of this progress note, and it is not deemed complete until electronically signed by the appointment provider. Sign off status: Pending * Provider: Sukumar Leslie MD Date: 0 05/30/2025 Generated for Nohemi harris/Nereida/Ronnie on: 06/01/2025 07:25 AM EDT
--- OUTSIDE RECORDS SUMMARY | 2025-06-01 07:24 | XMS_ITS | Clinical Summary ---
Author Organization [facility] Address [address] [place] [phone] Phone Care Team Providers Care Associate Attorney Name Role Phone Flash Leslie MD Primary [...] Procedure Name Priority Date/Time Associated Diagnosis Comments [facility] SCREENING DIGITAL Routine 06/18/2024 3:21 PM EDT Encounter for screening mammogram for malignant neoplasm of breast from Last 3 Months or Most Recently Relevant to Health Maintenance Results * [facility] SCREENING DIGITAL (06/18/2024 3:21 PM EDT) Anatomical Region Laterality Modality Mammography 06/18/2024 1:23 PM EDT Narrative 06/18/2024 3:[address] 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 AI 3-D. TISSUE DENSITY: There are scattered [...] Briana MONTEZ BRET MD Dic Date/Time: 06/18/24 8531 Sign date/Time: 06/18/24 1521 Procedure Note Thompson Montez MD - 07/03/2024 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 AI 3-D. TISSUE DENSITY: There are scattered [...] Recently Relevant to Health Maintenance Care Teams Associate Attorney Relationship Specialty Start Date End Date Flash Leslie MD PCP - General Internal Medicine 03/18/17
--- OUTSIDE RECORDS SUMMARY | 2025-06-01 07:25 | XMS_ITS | Clinical Summary ---
Author Organization [facility] Address [address] [place] [address] Care Team Providers Care Master Glazier Name Role Phone Flash Leslie MD Primary Care Provider [phone] Allergies No known active allergies Medications Medication [...] age to complete this topic Care Teams Master Glazier Relationship Specialty Start Date End Date Flash Leslie MD [address] [place] [address] [place] [phone] PCP - General Internal Medicine 03/18/17
--- OUTSIDE RECORDS SUMMARY | 2025-06-01 07:25 | XMS_ITS | Patient Health Record ---
Author Organization Flash Leslie MD Address [address] [place], [place] [phone] Care Team Providers Care Professional Builder Name Role Phone Flash Leslie Primary Care Provider Allergies No Known Allergies Results Component Value Reference Range Notes Hemoglobin A1c Reviewed date:07/23/2024 01:48:47 PM Interpretation: Performing Lab: Notes/Report: Hemoglobin A1c 7.5 Glucose, finger stick Reviewed date:07/23/2024 01:42:04 PM Interpretation: Performing Lab: Notes/Report: Value 102 Pap Smear Reviewed date:05/13/2025 12:47:16 PM Interpretation: Performing Lab:[facility], [address] [place] [phone] Notes/Report: ------ Name: Kelsi Landis Age/Sex: 64/F : 1960 [id number] Unit#: [id number] Attend Dr: Gillian Viveros CNM Re05/02/25 Status : DEP REF Location: [facility] Disch: ------ SPEC : [id number] REC 55 STATUS: SHRAVAN ANTONIO NUM: [id number] PELON: 05/02/25-[address]: Gillian Viveros CNM ENTERED: 05/03/25- 42 SP TYPE: Pap Smr OTHR DR: Flash Leslie MD ORDERED: Pap Smear Interpretation Satisfactory for evaluation. Negative for intraepithelial lesion or malignancy. Mild inflammation. HPV High Risk: Negative HPV Genotyping 16: Negative HPV Genotyping 18: Negative Clinical Information LMP: Menopausal Previous PAP test: 2 020, WNL Other history: Encou nter for well woman exam with routine gynecological exam Material Received ThinPrep-Cervical PAP Disclaimer As of June 27, the technical services to include automated prescreening performed by the ThinPrep Imag ing System, PAP screening and HPV testing will be performed at [facility] (CLIA #[id number]), [address] [place] [address]. Testing for H PV was performed using the Bere LISSY 6800 system. The presence of HPV in the female ge nital tract is associated with a number of diseases, including cervical carcinoma. The HPV D NA high risk pool tests for HPV 31, 33, 35, 39, 45, 51, 52, 56, 58, 59, 66 and 68. The testi ng for HPV 16 and 18 genotypes has also been performed. A positive result indicates det ection of nucleic acid sequences from one or more subtypes, whereas a negative result julian cates such sequences were not detected. All professional ser vices are performed by ([address] [place] [address]; P h: [phone]; CLIA #[id number]). The PAP Test is a screening procedure with the inherent possibility of both false negative and false positive results. Results should be interpreted in the context of historic and current clinical fin dings. Reliability of the PAP Test is enhanced by performing the test on a regular repetit sonia basis. CONTINUED ON NEXT PAGE ------ Name: Kelsi Landis Age/Sex: 64/F : 1960 Unit#: [id number] Attend Dr: Gillian Viveros CNM Re05/02/25 Status : [facility] REF Location: [facility] Disch: ------ SPEC : [id number] REC STATUS: SHRAVAN ANTONIO NUM: [id number] PELON: 05/02/25-[address] [facility] [address]: Gillian Viveros CNM ENTERED: 05/03/25- 42 SP TYPE: Pap Smr OTHR DR: Flash Leslie MD ORDERED: Pap Smear Copies To: Flash Leslie MD [facility] [address] [facility] [address] [place] [address] Gillian Viveros CNM [facility] Services [address] [place] [address] ------ Signed (signature on file) ARSENIO Beck (ASC) 05/13/25 1038 ------ END OF REPORT HPV High risk Reviewed date:05/09/2025 04:59:14 PM Interpretation: Performing Lab:[facility], [address] [place] [phone] Notes/Report: HPV High Risk Negative Negative HPV Genotype 16 Negative Negative HPV Genotype 18 Negative Negative HPV testing performed at [facility] (CLIA #[id number]), [address] [place] [address]. Testing for HPV was performed using the Bere LISSY 6800 system. The presence of HPV in the female genital tract is associated with a number of diseases, including cervical carcinoma. The HPV DNA high risk pool tests for HPV 31, 33, 35, 39, 45, 51, 52, 56, 58, 59, 66 and 68. The testing for HPV 16 and 18 genotypes has also been performed. A positive result indicates detection of nucleic acid sequences from one or more subtypes, whereas a negative result indicates such sequences were not detected. Reason For Referral No Information Medications Medication [...] a day for 30 days 07/23/2024 Active Zithromax Z-Vikram 250 MG 2 tablet on [...] a day for 30 days 09/02/2011 Not-Taking Immunizations Vaccine Route Administration Date Status Comme [...] Problem Status W/U Status Risk Notes Problem 45107106 Vitamin D defici ency (E55.9) Active confirmed Problem 8592234 Primary insomnia (F51.01) Active confirmed Problem Abnormal findings on diagnostic imaging of breast (277152720) Other abnormal and inconclusive findings on diagnostic imaging of breast (R92.8) Active confirmed Problem 139306248 Tubular adenoma of colon (D12.6) Active confirmed Problem 69302467 Essential hypert ension (I10) Active confirmed Problem 855176197 Abnormal mammogr am (R92.8) Active confirmed Problem 31898798 Premenopausal pa tient (N95.9) Active confirmed Problem 902741660 Pure hypercholesterolemia (E78.00) Active confirmed Problem 702943571 Tension type hea dache, unspecified (G44.209) Active confirmed Problem 308495278 Sensorineural he aring loss (SNHL) of both ears (H90.3) Active confirmed Problem 73133828 New onset type 2 diabetes mellitus (E11.9) Active confirmed Problem 575473284912049 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 (Z86.000) Active confirmed Vital Signs Blood pressure diastolic 80 mm Hg 11/20/2024 sanjiv ght is up 2 pounds since 07-23-24 Height 57 in 05/17/2025 weight is 160 B P not taken no temp Blood pressure systolic 182 mm Hg 11/20/2024 weig ht is up 2 pounds since 07-23-24 Weight 160 lbs 05/17/2025 weight is 160 B P not taken no temp BMI 34.62 kg/m2 05/17/2025 weight is 160 B P not taken no temp Encounters Encounter Location Date Provider Diagnosis Flash Leslie MD [address] [place] [id number] 06/04/2024 Flash Leslie Pure hypercholestero lemia E78.00 ; Annual physical exam Z00.00 ; Periungual wart B07.8 ; New onset type 2 diabetes mellitus E11.9 ; Essential hypertension I10 and Depression screening Z13.31 Flash Leslie MD [address] [place] [id number] 07/23/2024 Flash Leslie New onset type 2 phuc betes mellitus E11.9 ; Other specified cough R05.8 and Adverse effect of pdwrvbckqwb-czvwzcrvtb-gfn yme inhibitors, initial encounter T46.4X5A Flash Leslie MD [address] [place] [id number] 11/20/2024 Flash Leslie New onset type 2 phuc betes mellitus E11.9 ; Essential hypertension I10 and Wart of hand B07.9 Flash Leslie MD [address] [place] [id number] 05/17/2025 Flash Leslie Bronchitis J40 Flash Leslie MD [address] [place] [id number] 08/23/2024 Flash Leslie Assessments Encounter Date Diagnosis [...] not on her meds for one week 05/17/2025 Bronchitis (ICD-10 - J40) patient verbalized understandng of medication and directions for use 06/04/2024 Periungual wart (ICD -10 - B07.8) going to go back to dermatology/ patient will be making her own appt 07/23/2024 Adverse effect of angiotensin-converting- enzyme inhibitors, initial encounter (ICD-10 - T46.4X5A) she [...] PHUC LT 04/2021 Next Appt Details Provider Name:Flash Zapata ier, 06/06/2025 01:00:00 PM, [address] [place] [address], [address], [place], [place], [phone], Insurance Providers Payer Name Payer Address Payer Phone Subscriber Number Group Number Insured Name Patient Relationship to Insured Coverage Start Date Coverage End Date [employer] [address] [place], [place] [phone] [id number] Kelsi Landis Self - patient is the insured Medical (General) History Medical History History ICD Code 01/29/2014 - colonoscopy due in 5 year; Colonoscopy done 09/20/[address] Lawson - repeat 5 years, 01/25/25 colonoscopy repeat 5y Lulu hematuria work up in past had admission to [facility] and wo rk up with mri mrvenogram,ct all [id number]. felt byu neuro to be a migraine Concussion with loss of consciousness of unspecified duration
--- OUTSIDE RECORDS SUMMARY | 2025-06-01 07:25 | XMS_ITS | Clinical Summary ---
Author Organization [facility] Address [address] [address] Phone Care Team Providers Care Ship Steward Name Role Phone Flash Leslie MD Primary [...] 2012 ZOSTER VACCINES (1 of 2) 2012 INFLUENZA VACCINE (#1) 2025 06/22/2017 COVID-19 VACCINE (3 - 2024-2 6 season) 2025 01/10/2021, 12/19/2020 RSV VACCINE (1 - 1-dose [...] topic Medical Devices Not on file Insurance [address] [place], [place] [id number] [place] [address] [place], [place] [address]O [place] [address] [place], [place] [address]O POS EPO [facility] [facility] EPO Care Teams Ship Steward Relationship Specialty Start Date End Date Flash Leslie MD [address] [place] [address] [place] [address] PCP - General 06/21/17 Additional Source Comments The information contained in this document represents components of the legal health record. It is not the complete legal health record.[facility]
--- OUTSIDE RECORDS SUMMARY | 2025-06-01 07:25 | XMS_ITS | Patient Health Record ---
Author Organization [facility] Address [address] [place] [address] Care Team Providers Care Auto Tech Name Role Phone Flash Acevedo MD Primary Care Provider Rohini Frank Unavailable [phone] Reason For Referral Referring Provider First Name Flash Referring Provider Last Name Mariama Referring Provider Speciality Internal M edicine Referred Organization [facility] Referred Provider Rohini Lawson Referred Address [address] [place] [address],[address],[place], [place],[address],[place] Referred Provider Specialty Gastroentero logy General Notes [...] Problem Status W/U Status Risk Notes Problem 845656098 Encounter for screening for malignant neoplasm of colon (Z12.11) Active confirmed Problem 177894735197002 Preprocedural examination (Z01.818) Active confirmed Problem 404382024 Gastroesophageal reflux disease, esophagitis presence not specified (K21.9) Active confirmed Problem 999971504 Hx of adenomatou s colonic polyps (Z86.010) Active confirmed Vital Signs Temperature 97.5 degrees Fahrenheit 10/10/2024 Blood pressure diastolic 00 mm Hg 10/10/2024 Height 58 in 10/10/2024 Blood pressure systolic 00 mm Hg 10/10/2024 Weight 158 lb 2 oz lbs 10/10/2024 BMI 33.04 kg/m2 10/10/2024 Encounters Encounter Location Date Provider Diagnosis [facility] Outpatient [address] [place] [id number] 01/25/2025 Rohini Lawson Colon cancer screeni ng Z12.11 ; History of adenomatous polyp of colon Z86.0101 ; Diverticulosis of large intestine without perforation or abscess without bleeding K57.30 and Other hemorrhoids K64.8 [facility] [address] [place] [phone] 10/10/2024 Rohini Lawson Hx of adenomatous colonic polyps Z86.010 ; Preprocedural examination Z01.818 and Encounter for screening for malignant neoplasm of colon Z12.11 [facility] [address] [place] [phone] 08/20/2024 Rohini Lawson Assessments Encounter Date Diagnosis [...] Insured Coverage Start Date Coverage End Date [facility] [employer] [address] [place] [address] [id number] KELSI SIBLEY Self - patient is the insured Medical (General) History Medical History History ICD Code Hyperlipidemia Denies NH,CVA,Lung disease,renal disease HTN Neg colonoscopy in 02/2003 except for int ernal hemorrhoids Colonoscopy in 01/2014 with a small tubul ar adenima removed Negative colonoscopy in 09/2019 Diet-controlled diabetes Surgical History Surgery Date(Month/Year) Lumpectomy, right breast--bi opsies neg for breast cancer, but sees Dr. Martinez and Dr. Sidney Wiseman at [facility] and was on Tamoxifen 06/2013 Breast reduction Meniscus tear right knee Retinal detachment right eye with laser surgery-successful Trigger fingers on right hand
[2025-06-01 07:40] LABS: MANUAL DIFF FLAG NO
[2025-06-01 08:23] LABS: Hematocrit 37.1 % (37.0-47.0); Hemoglobin 12.7 g/dl (12.0-16.0); Imm Gran Abs Auto 0.04 X10*3/uL (0.00-0.03); Imm Gran Pct Auto 0.5 % (0.0-0.4); Lymphocytes Absolute Auto 3.7 X10*3/uL (1.2-4.9); Mean Corpuscular HGB Conc 34.2 g/dl (31.0-35.0); Mean Corpuscular Hemoglobin 30.0 pg (27.0-33.0); Mean Corpuscular Volume 87.5 fL (80.0-98.0); NRBC Abs Auto 0.000 X10*3/uL (0.0-0.012); NRBC Pct Auto 0.0 /100WBC (0.0-0.2); Platelet Count 261 X10*3/uL (160-400); Red Blood Count 4.24 X10*6/uL (4.20-5.50); White Blood Count 8.6 X10*3/uL (4.8-10.8)
[2025-06-01 08:30] LABS: Appearance Urine Clear; Glucose Urine UA 250 mg/dL (Negative); PH 5.5 (5.0-9.0); Specific Gravity - Urine 1.025 (1.005-1.025); UMIC TRIGGER UACC YES
[2025-06-01 08:32] LABS: Total Hemoglobin (HGBA1C) 3308.8724 umol/L
[2025-06-01 08:42] LABS: UACC Culture Trigger YES
[2025-06-01 09:04] LABS: Alanine Aminotransferase 22 U/L (0-31); Albumin Level 4.1 g/dL (3.5-5.0); Alkaline Phosphatase 76 U/L (39-117); Anion Gap 10 (12-20); Aspartate Amino Transferase 26 U/L (5-31); Blood Urea Nitrogen 17 mg/dL (9-16); Calcium 8.7 mg/dL (8.4-10.2); Carbon Dioxide 25 mmol/L (22-29); Chloride 111 mmol/L (96-108); Cholesterol 185 mg/dL (<200); Estimated Glomerular Filt Rate > 60; HDL Cholesterol 40 mg/dL (>40); Potassium 4.0 mmol/L (3.3-5.1); Sodium 142 mmol/L (135-145); Total Protein 6.9 g/dL (6.5-8.0); Triglycerides 194 mg/dL (<150)
[2025-06-01 09:28] LABS: Microalbum/Creatinine Ratio Ur 35.0 ug/mg cr (<30)
== END 2025-06-01 07:21 | disposition home or self-care (01) ==
LOC: HO.LAB 07:20
PROVIDERS: PCP Internal Medicine; Visit Provider Internal Medicine
DX: Z00.00 Encounter for general adult medical examination without abnormal findings (principal); E11.9 Type 2 diabetes mellitus without complications; I10 Essential (primary) hypertension; E55.9 Vitamin D deficiency, unspecified; E78.00 Pure hypercholesterolemia, unspecified
CPT/HCPCS: 36415; 80053; 80061; 81001; 82043; 82306; 82570; 83036; 85025; 87086

== ENCOUNTER → 2025-07-19 12:48 | Outpatient (BNVA) | payer OTHER, SELFPAY | PROVIDERS: PCP Internal Medicine; Visit Provider Physician Assistant | DX: M70.831 Other soft tissue disorders related to use, overuse and pressure, right forearm (principal); M70.832 Other soft tissue disorders related to use, overuse and pressure, left forearm; G24.9 Dystonia, unspecified | CPT/HCPCS: 29125; 99203 ==

== ENCOUNTER → 2025-07-25 14:10 | Outpatient (BNVA) | payer OTHER, SELFPAY | PROVIDERS: PCP Internal Medicine; Visit Provider Physician Assistant | DX: M70.831 Other soft tissue disorders related to use, overuse and pressure, right forearm (principal); M70.832 Other soft tissue disorders related to use, overuse and pressure, left forearm; Z02.79 Encounter for issue of other medical certificate | CPT/HCPCS: 99213 ==